=== PATIENT | female | born 1970 | race American Indian/Alaskan Native ===

== ENCOUNTER 2016-09-27 15:56 | Inpatient (IN) | payer OTHER ==
--- NOTE | 2016-09-27 16:55 | Emergency Department Report ---
Chief Complaint: Recheck/Abnormal Lab/Rx Stated Complaint: LOW POTASSIUM/CRAMPS LEGS ARMS/CHEST PAIN Time Seen by Provider: 09/27/16 16:45 - HPI History of Present Illness: Patient here reported that he thinks his potassium level was low times a few days. He complaining of vomiting since yesterday. Denies any diarrhea. Denies any fever or chills. He is complaining the muscles cramping up in arms sides and upper right breast area. Generalized pain 10 out of 10 that feels achy. Patient with history of rheumatoid arthritis, lupus, hypothyroid thyroidism and hypokalemia. - ROS Review of Systems: All systems are negative unless stated in HPI above. - Exam Vital Signs: Vital Signs 09/27/16 16:35 Temperature 98.9 F Pulse Rate 72 Respiratory 19 Rate Blood Pressure 118/59 O2 Sat by Pulse 100 Oximetry Physical Exam: General: This is a 46-year-old female well-nourished and nontoxic in appearance. CV: S1, S2. Regular rate and rhythm. Lungs: CTAB. Normal work of breathing. MSE screening note: Focused history and physical exam performed. Due to findings the following was ordered:see [facility] ED Medical Decision Making - Lab Data Result diagrams: 09/27/16 17:08 09/27/16 17:08 - Medical Decision Making Medical decision making: Patient seen by provider in triage area. Appropriate protocol activated and patient to main ED to be seen by physician. ED Disposition for MSE Condition: Stable
[2016-09-27 17:17] LABS: Basophils % (Auto) 0.3 % (0.0-1.8); Eosinophils % (Auto) 0.4 % (0.0-4.3); Hemoglobin 12.9 gm/dl (10.1-14.3); Mean Corpuscular HGB Conc 33 % (30-34); Mean Corpuscular Hemoglobin 28 pg (28-32); Mean Corpuscular Volume 85 fl (79-97); Platelet Count 438 K/mm3 (140-440); Red Blood Count 4.57 M/mm3 (3.65-5.03); Red Cell Distribution Width 17.7 % (13.2-15.2); White Blood Count 6.4 K/mm3 (4.5-11.0)
[2016-09-27 17:38] LABS: Alanine Aminotransferase 14 units/L (7-56); Albumin 4.1 g/dL (3.9-5); Albumin/Globulin Ratio 0.6 %; Alkaline Phosphatase 78 units/L (35-129); Amylase 114 units/L (27-131); Anion Gap 21 mmol/L; Bilirubin,Total 0.9 mg/dL (0.1-1.2); Blood Urea Nitrogen 17 mg/dL (7-17); Calcium 9.1 mg/dL (8.4-10.2); Carbon Dioxide 12 mmol/L (22-30); Chloride 104.6 mmol/L (98-107); Creatine Kinase 365 units/L (30-135); Glucose 89 mg/dL (65-100); Lipase 14 units/L (13-60); Sodium 136 mmol/L (137-145); Total Protein 10.8 g/dL (6.3-8.2)
[2016-09-27 17:42] LABS: Potassium 1.9 mmol/L (3.6-5.0)
[2016-09-27] MEDS ORDERED: K-DUR PO ONE (17:59)
--- NOTE | 2016-09-27 18:22 | Emergency Department Report ---
ED General Adult HPI - General Chief complaint: Recheck/Abnormal Lab/Rx Stated complaint: LOW POTASSIUM/CRAMPS LEGS ARMS/CHEST PAIN Time Seen by Provider: 09/27/16 16:54 Source: patient Mode of arrival: Ambulatory Limitations: No Limitations - History of Present Illness Initial comments: The patient has a history of lupus and distal RTA. She has chronic hypokalemia. She has been noncompliant with her potassium supplement for quite some time. She complains of muscle cramps and generalized weakness. She states that she vomited a few times since yesterday. She goes to the [facility] but has not been there in over 2 months. She has previously been hospitalized here under similar circumstances. -: week(s), month(s) Location: upper extremity, lower extremity Quality: other (cramping) Consistency: intermittent Improves with: none Worsens with: none Associated Symptoms: chest pain (a some mention of chest pain to triage apparently did not complain of this to me.), nausea/vomiting, weakness. denies : shortness of breath Treatments Prior to Arrival: none - Related Data Home Medications Medication Instructions Recorded Confirmed Last Taken Potassium Chloride [K-Dur] 60 meq PO BID 09/27/16 09/27/16 Unknown Previous Rx's Medication Instructions Recorded Last Taken Type Levothyroxine [Synthroid] 100 mcg PO QAM #30 tablet 08/02/16 Unknown Rx Sodium Bicarbonate 2,600 mg PO TID #90 tablet 08/02/16 Unknown Rx Allergies Allergy/AdvReac Type Severity Reaction Status Date / Time No Known Allergies Allergy Verified 09/27/16 16:35 ED Review of Systems ROS: Stated complaint: LOW POTASSIUM/CRAMPS LEGS ARMS/CHEST PAIN Other details as noted in HPI Constitutional: weakness. denies: chills, fever Eyes: denies: eye pain, eye discharge, vision change ENT: denies: ear pain, throat pain Respiratory: denies: cough, shortness of breath, wheezing Cardiovascular: denies: chest pain, palpitations Endocrine: no symptoms reported Gastrointestinal: denies: abdominal pain, nausea, diarrhea Genitourinary: denies: urgency, dysuria, discharge Musculoskeletal: as per HPI, myalgia. denies: back pain, joint swelling, arthralgia Skin: denies: rash, lesions Neurological: denies: headache, weakness, paresthesias Psychiatric: denies: anxiety, depression Hematological/Lymphatic: denies: easy bleeding, easy bruising ED Past Medical Hx - Past Medical History Hx Congestive Heart Failure: No Hx Diabetes: No Hx Arthritis: Yes (rheumatoid) Hx Asthma: No Hx COPD: No Additional medical history: Lupus. Surgical hypothyroidism. 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 - Surgical History Additional Surgical History: thyroidectomy - Social History Smoking Status: Never Smoker Substance Use Type: None - Medications Home Medications: Home Medications Medication Instructions Recorded Confirmed Last Taken Type Levothyroxine [Synthroid] 100 mcg PO QAM #30 tablet 08/02/16 09/27/16 Unknown Rx Sodium Bicarbonate 2,600 mg PO TID #90 tablet 08/02/16 09/27/16 Unknown Rx Potassium Chloride [K-Dur] 60 meq PO BID 09/27/16 09/27/16 Unknown History ED Physical Exam - General Limitations: No Limitations General appearance: alert, in no apparent distress - Head Head exam: Present: atraumatic, normocephalic - Eye Eye exam: Present: normal appearance, scleral icterus. Absent: PERRL, EOMI - ENT ENT exam: Present: normal exam, mucous membranes moist - Neck Neck exam: Present: normal inspection - Respiratory Respiratory exam: Present: normal lung sounds bilaterally. Absent: respiratory distress - Cardiovascular Cardiovascular Exam: Present: regular rate, normal rhythm. Absent: systolic murmur, diastolic murmur, rubs, gallop - GI/Abdominal GI/Abdominal exam: Present: soft, normal bowel sounds. Absent: distended, tenderness, guarding, rebound, rigid - Extremities Exam Extremities exam: Present: normal inspection - Back Exam Back exam: Present: normal inspection - Neurological Exam Neurological exam: Present: alert, oriented X3, CN II-XII intact. Absent: motor sensory deficit - Psychiatric Psychiatric exam: Present: normal affect, normal mood - Skin Skin exam: Present: warm, dry, intact, normal color. Absent: rash ED Course Vital Signs 09/27/16 09/27/16 09/27/16 16:35 18:31 19:12 Temperature 98.9 F Pulse Rate 72 66 Respiratory 19 18 14 Rate Blood Pressure 118/59 Blood Pressure [Right] O2 Sat by Pulse 100 99 Oximetry 09/27/16 09/27/16 09/27/16 19:38 20:00 20:31 Temperature Pulse Rate 60 76 63 Respiratory 18 16 15 Rate Blood Pressure 112/63 112/63 Blood Pressure 115/78 [Right] O2 Sat by Pulse 99 100 100 Oximetry 09/27/16 21:00 Temperature Pulse Rate 66 Respiratory 15 Rate Blood Pressure 112/62 Blood Pressure [Right] O2 Sat by Pulse 100 Oximetry - Reevaluation(s) Reevaluation #1: Even by mouth potassium, mag sulfate and K riders. Zofran. Patient was admitted to the hospitalist service for further care and evaluation and resuscitation. 09/27/16 23:46 ED Medical Decision Making - Lab Data Result diagrams: 09/27/16 17:08 09/27/16 17:08 Laboratory Results - last 24 hr 09/27/16 09/27/16 17:08 17:08 WBC 6.4 RBC 4.57 Hgb 12.9 Hct 39.0 MCV 85 MCH 28 MCHC 33 RDW 17.7 H Plt Count 438 Lymph % (Auto) 20.9 [place] % (Auto) 9.6 H Eos % (Auto) 0.4 Baso % (Auto) 0.3 Lymph # 1.3 [place] # 0.6 Eos # 0.0 Baso # 0.0 Seg Neutrophils % 68.8 Seg Neutrophils # 4.4 Potassium 1.9 L* Carbon Dioxide 12 L BUN 17 Creatinine 1.0 Estimated GFR > 60 BUN/Creatinine Ratio 17.00 Glucose 89 Calcium 9.1 Total Bilirubin 0.9 AST 25 ALT 14 Alkaline Phosphatase 78 Total Creatine Kinase 365 H Total Protein 10.8 H Albumin 4.1 Albumin/Globulin Ratio 0.6 Amylase 114 Lipase 14 Ketones 4.0 H NA 136 CL 104.6 AG 21 - EKG Data -: EKG Interpreted by Me EKG shows normal: sinus rhythm - EKG Data Interpretation: other (grossly abnormal diffuse repolarization abnormalities with T-wave inversion and U waves present consistent with hypokalemia. I would axis flattened P waves) - Radiology Data interpreted by me: Chest x-ray no acute process Critical care attestation.: If time is entered above; I have spent that time in minutes in the direct care of this critically ill patient, excluding procedure time. ED Disposition Clinical Impression: RTA (renal tubular acidosis), Hypokalemia, Metabolic acidosis Disposition: OP ADMITTED IP TO THIS HOSP Is pt being admited?: Yes Does the pt Need Aspirin: No Condition: Stable Time of Disposition: 23:48
[2016-09-27] MEDS ORDERED: MAGNESIUM SULFATE 2GM/50ML 50 ML IV ONE ×2 (18:24→21:34)
--- NOTE | 2016-09-27 18:33 | Admit Criteria Form ---
Admission Criteria Documentation: HYPONATREMIA; HYPERNATREMIA; HYPOKALEMIA; HYPERKALEMIA; HYPOCALCEMIA; HYPERCALCEMIA Clinical Indications for Inpatient Care (Place 'X' for any and all applicable criteria): Ongoing inpatient care may be indicated for ANY ONE of the following [G](1)(2)(3 )(5): [ ]I. Hyponatremia with ANY ONE of the following: [ ]a) Sodium less than 130 mEq/L (mmol/L) (new) (6)(22) [ ]b) Sodium less than 135 mEq/L (mmol/L) with ANY ONE of the following: [ ]i) Severe medical etiology requiring inpatient management (eg, heart failure, hypovolemia) [ ]ii) Altered mental status [ ]iii) Seizures [ ]II. Hypernatremia with ANY ONE of the following: [ ]a) Sodium greater than 155 mEq/L (mmol/L) [ ]b) Sodium greater than 150 mEq/L (mmol/L) with ANY ONE of the following: [ ] i) Altered mental status [ ]ii) Seizures [ ]iii) Severe medical etiology (eg, hypovolemia, diabetes insipidus) [ ]iv) Severe weakness [ ]v) Severe medical etiology (eg, hemolysis, infection, drug overdose) [X ]III. Hypokalemia with ANY ONE of the following: [ X]a) Potassium less than 2.5 mEq/L (mmol/L) despite outpatient and emergency treatment [ ]b) Potassium less than 3.0 mEq/L (mmol/L) with ANY ONE of the following: [ ]i) Weakness [ ]ii) Cardiac abnormality (eg, arrhythmia, conduction disturbance) [ ]iii) Cardiac ischemia [ ]iv) Ileus [ ]v) Ongoing medical cause requiring inpatient management. ( e.g., acute renal wasting, SIADH) [ ]vi) Other severe symptoms [ ] IV. Hyperkalemia with ANY ONE of the following: [ ]a) Potassium greater than 6.5 mEq/L (mmol/L) [ ]b) Potassium greater than 5 mEq/L (mmol/L) with ANY ONE of the following: [ ]i) Severe ECG findings [H] [ ]ii) Acute worsening of renal failure (creatinine greater than 2.5 mg/dL (221 micromoles/L) or significant elevation for age and size) [ ] V. Hypocalcemia with ANY ONE of the following: [ ]a) Calcium less than 7 mg/dL (1.75 mmol/L) despite outpatient and emergency treatment(19) [ ]b) Calcium less than 8 mg/dL (2 mmol/L) with significant symptoms or findings; examples include: [ ]i) Cardiac abnormality (eg, arrhythmia or conduction disturbance) [ ]ii) Altered mental status [ ]iii) Seizures [ ]iv) Breathing difficulty [ ]v) Muscle spasms [ ]. Hypercalcemia with ANY ONE of the following: [ ]a) Calcium greater than 14 mg/dL (3.5 mmol/L) [ ]b) Calcium greater than 12 mg/dL (3 mmol/L) with ANY ONE of the following: [ ]i) Significant dehydration or hypovolemia as indicated by ANY ONE of the following(2): [ ]1. Clinically significant dehydration as indicated by ANY ONE of the following: [ ]A. Acute loss of weight from baseline (5% of body weight in adults, 9% in pediatric patients) [ ]B. Hemodynamic instability [ ]C. Acute renal failure [ ]D. Serum sodium greater than 150 mEq/L (mmol/L) [ ]2) Dehydration that is persistent indicated by ALL of the following: [ ]A. Oral rehydration therapy not tolerated or insufficient to adequately correct dehydration [ ]B. Appropriate intravenous treatment (eg, fluids ) does not readily correct dehydration ie, after 12 to 24 hours of treatment) [ ]ii) Significant symptoms or findings; examples include: [ ]1) Altered mental status [ ]2) Cardiac abnormality (eg, arrhythmia, conduction disturbance) [ ]3) Cardiac abnormality (eg, arrhythmia, conduction disturbance) The original [facility] content created by [employer] has been revised. The portions of the content which have been revised are identified through the use of italic text or in bold, and [facility] has neither reviewed nor approved the modified material. All other unmodified content is copyright [facility] [employer] Please see references footnoted in the original [facility] edition 2016 Admission Criteria Met: Yes
[2016-09-27] MEDS ORDERED: NACL 0.9% 1000 ML 1,000 ML ONE (19:48)
[2016-09-27] MEDS ORDERED: NACL 0.9% 1000 ML IV ONE (19:59)
[2016-09-27] MEDS: KCL 10MEQ/100ML 100 ML IV SCH ×4 (20:00→23:39)
[2016-09-27] MEDS ORDERED: ZOFRAN ONE (20:11)
[2016-09-27] MEDS ORDERED: ZOFRAN IV ONE (20:32)
--- NOTE | 2016-09-27 21:20 | Event Note ---
Date: 09/27/16 See H/p in reports Severe Hypokalemia RTA Muscle cramps Hypothyroidism
[2016-09-27] MEDS ORDERED: TYLENOL PO PRN (21:28)
[2016-09-27] MEDS ORDERED: MILK OF MAGNESIA PO PRN (21:28)
[2016-09-27] MEDS ORDERED: PERCOCET 5/325 PO PRN (21:28)
[2016-09-27] MEDS ORDERED: ZOFRAN IV PRN (21:28)
[2016-09-27] MEDS ORDERED: DULCOLAX PR PRN (21:28)
[2016-09-27] MEDS ORDERED: AMBIEN PO PRN (21:28)
[2016-09-27] MEDS ORDERED: DILAUDID IV PRN (21:28)
[2016-09-27] MEDS ORDERED: K-DUR PO SCH (22:00)
[2016-09-27] MEDS ORDERED: D5W/0.45% NACL/KCL 20 MEQ 1,000 ML IV SCH (22:00)
[2016-09-27] MEDS ORDERED: KCL 10MEQ/100ML 100 ML IV SCH (22:00)
--- NOTE | 2016-09-27 22:57 | History and Physical Report ---
CHIEF COMPLAINT: Muscle spasms and low potassium. HISTORY OF PRESENT ILLNESS: A 46-year-old female with hypothyroidism and renal tubular acidosis, who comes in for muscle cramps and chest pain. The patient has been having ongoing severe muscle cramps. Also, the patient has a history of SLE. The patient thinks that she has very low potassium. Because of the muscle spasms, also has some chest discomfort present. PAST MEDICAL HISTORY: Significant for hypothyroidism, renal tubular acidosis, systematic lupus erythematosus, and rheumatoid arthritis. CURRENT MEDICATIONS: Levothyroxine, Synthroid 100 mcg p.o. daily, potassium 40 mg 3 times a day, sodium bicarbonate 2600 mg p.o. t.i.d. PAST SURGICAL HISTORY: Thyroidectomy. SOCIAL HISTORY: Does not smoke. No alcohol, no recreational drugs. FAMILY HISTORY: Noncontributory. No hypertension, diabetes. REVIEW OF SYSTEMS: Significant for severe muscle cramps and feeling weak. Also, some chest discomfort. No palpitations. No diaphoresis. 14-point review of systems otherwise negative. PHYSICAL EXAMINATION: GENERAL: Middle-aged female, curled up in the bed in pain. VITAL SIGNS: Blood pressure is 118/59, temperature is 98.9, pulse is 72, respiratory rate is 19, and sats are 100%. HEENT: Unremarkable. Pupils equal and reactive. NECK: Supple, no lymphadenopathy, no thyromegaly, no carotid artery bruit. CHEST AND LUNGS: Clear to auscultation and percussion. Good air entry. CARDIOVASCULAR: S1, S2 heard. No gallop, no murmur, no rub. Apical impulse in the left fifth intercostal space and midclavicular line. ABDOMEN: Soft and benign. No hepatosplenomegaly. No guarding, no rigidity. Hernial orifices are normal. Bowel sounds are normal. EXTREMITIES: Good pedal pulses and no pedal edema. CENTRAL NERVOUS SYSTEM: Alert and oriented x4, nonfocal exam. LABORATORY DATA: Significant for potassium of 1.9, bicarbonate of 12, BUN and creatinine 17 and 1.0. Glucose is 89. Hemoglobin is 12.9, hematocrit is 39.0. White count is 6400, platelet count is 438,000. Total CK is 365, total protein is 10.8, and albumin is 4.1. Amylase is 114, lipase is 14, ketones are 4.0. BUN and creatinine 17 and 1.0. EKG not available. ASSESSMENT AND PLAN: 1. Severe hypokalemia, of 1.9 supplement aggressively. The patient was given 2 rounds of 40 mEq IV and 40 mEq q.3 hours apart four to six doses. Also, the patient to continue potassium chloride 40 mEq three times a day and sodium bicarbonate 2600 mg 3 times a day. 2. Renal tubular acidosis. Continue potassium and sodium bicarbonate as a reconcile. Also, Nephrology consult requested. 3. Hypothyroidism, 100 mcg of levothyroxine was started. 4. Systemic lupus erythematosus by history. The patient is not on any medications. 5. Rheumatoid arthritis by history. The patient is not on any medications present. 6. Deep venous thrombosis prophylaxis, Lovenox 40 mg subcutaneous daily. 7. Check potassium and magnesium in the morning. IV magnesium also given. JOB# [id number] MILTON/TRENA PAIGE
[2016-09-28] MEDS: K-DUR PO SCH ×5 (00:23→09:06)
[2016-09-28 01:38] LABS: Bilirubin,Urine NEG (Negative); Blood,Urine NEG (Negative); Ketones,Urine NEG (Negative); Leukocyte Esterase,Urine NEG (Negative); Mucus,Urine FEW /HPF; Nitrite,Urine NEG (Negative); Urobilinogen,Urine < 2.0 mg/dL (<2.0)
[2016-09-28] MEDS: SYNTHROID PO SCH (06:13)
[2016-09-28 07:25] LABS: Basophils % (Auto) 0.5 % (0.0-1.8); Eosinophils % (Auto) 1.9 % (0.0-4.3); Hemoglobin 10.2 gm/dl (10.1-14.3); Mean Corpuscular HGB Conc 33 % (30-34); Mean Corpuscular Hemoglobin 28 pg (28-32); Mean Corpuscular Volume 86 fl (79-97); Platelet Count 369 K/mm3 (140-440); Red Blood Count 3.65 M/mm3 (3.65-5.03); Red Cell Distribution Width 18.6 % (13.2-15.2); White Blood Count 4.9 K/mm3 (4.5-11.0)
[2016-09-28 07:29] LABS: Hematocrit 33.3 % (30.3-42.9)
[2016-09-28 07:42] LABS: Anion Gap 18 mmol/L; BUN/Creatinine Ratio 15.55; Blood Urea Nitrogen 14 mg/dL (7-17); Calcium 7.6 mg/dL (8.4-10.2); Carbon Dioxide 11 mmol/L (22-30); Chloride 108.2 mmol/L (98-107); Glucose 76 mg/dL (65-100); Sodium 135 mmol/L (137-145)
[2016-09-28 07:43] LABS: Potassium 2.2 mmol/L (3.6-5.0)
--- NOTE | 2016-09-28 08:33 | XRay Report ---
PORTABLE CHEST: INDICATION: Hypertension. COMPARISON: 06/27/2015 FINDINGS: Portable, frontal chest radiograph again demonstrates normal cardiomediastinal silhouette. Well-expanded lungs without pleural effusions or CHF, though slight scalloping of the hemidiaphragms now noted. Stable bones. CONCLUSION: No acute disease in the chest. Thank you for the opportunity to participate in this patient's care.
[2016-09-28] MEDS: SODIUM BICARBONATE PO SCH ×3 (09:06→21:29)
[2016-09-28] MEDS: LOVENOX SUB-Q SCH (09:09)
[2016-09-28] MEDS ORDERED: K-DUR PO SCH (10:00)
--- NOTE | 2016-09-28 10:51 | Consultation ---
History of Present Illness - Reason for Consult Consult date: 09/28/16 hypokalemia, metabolic acidosis - History of Present Illness Patient is a 46 yo AAF with history significant for Lupus, RTA and chronic hypokalemia came to ER with muscle cramps and generalized weakness. She has been noncompliant with her potassium supplement for quite some time. She reports vomiting since yesterday. She goes to the [facility] but has not been there in over 2 months. She has had previous similar admisions in the past. Her admission K level was 1.9, which has improved to 3. Patient denies any diarrhea, dizziness, cp, syncope or fever. Past History Past Medical History: hypothyroidism, other (Lupus, RTA, Hypokalemia) Medications and Allergies Allergies Allergy/AdvReac Type Severity Reaction Status Date / Time No Known Allergies Allergy Verified 09/27/16 16:35 Home Medications Medication Instructions Recorded Confirmed Last Taken Type Levothyroxine [Synthroid] 100 mcg PO QAM #30 tablet 08/02/16 09/27/16 Unknown Rx Sodium Bicarbonate 2,600 mg PO TID #90 tablet 08/02/16 09/27/16 Unknown Rx Potassium Chloride [K-Dur] 60 meq PO BID 09/27/16 09/27/16 Unknown History Active Meds: Active Medications Acetaminophen (Tylenol) 650 mg PO Q4H PRN PRN Reason: Pain MILD(1-3)/Fever >100.5/POWERS Bisacodyl (Dulcolax) 10 mg AR QDAY PRN PRN Reason: Constipation unrelieved by MOM Enoxaparin Sodium (Lovenox) 40 mg SUB-Q QDAY LION Hydromorphone HCl (Dilaudid) 0.5 mg IV Q3H PRN PRN Reason: Pain , Severe (7-10) Potassium Chloride/Dextrose/Sod Cl (D5w/0.45% Nacl/Kcl 20 Meq) 1,000 mls @ 100 mls/hr IV DIRECT LION Last Admin: 09/28/16 01:46 Dose: 100 mls/hr Sodium Chloride (Nacl 0.9% 1000 Ml) 1,000 mls @ 75 mls/hr IV DIRECT LION Influenza Virus Vaccine Quadrival (Fluarix Quad [id number](36 Mos+)) 60 mcg IM .ONCE ONE Stop: 09/28/16 12:01 Levothyroxine Sodium (Synthroid) 100 mcg PO DAILY@0600 [facility] Last Admin: 09/28/16 06:13 Dose: 100 mcg Magnesium Hydroxide (Milk Of Magnesia) 30 ml PO Q4H PRN PRN Reason: Constipation Ondansetron HCl (Zofran) 4 mg IV Q8H PRN PRN Reason: N/V unrelieved by Reglan Oxycodone/Acetaminophen (Percocet 5/325) 1 tab PO Q6H PRN PRN Reason: Pain, Moderate (4-6) Potassium Chloride (K-Dur) 60 meq PO BID [facility] Sodium Bicarbonate (Sodium Bicarbonate) 2,600 mg PO TID [facility] Zolpidem Tartrate (Ambien) 5 mg PO QHS PRN PRN Reason: Insomnia Review of Systems Constitutional: fatigue, weakness, malaise, poor appetite, no fever, no chills Ears, nose, mouth and throat: no epistaxis Breasts: deferred Cardiovascular: no chest pain, no orthopnea, no palpitations, no rapid/ irregular heart beat, no edema, no syncope Respiratory: no cough, no hemoptysis Gastrointestinal: nausea, vomiting, no abdominal pain, no diarrhea, no BRBPR, no melena Genitourinary Female: no hematuria Rectal: no bleeding Musculoskeletal: no neck stiffness Integumentary: no jaundice Neurological: weakness, no paralysis Hematologic/Lymphatic: no easy bruising, no easy bleeding Allergic/Immunologic: no urticaria Exam - Vital Signs Vital signs: Vital Signs Temp Pulse Resp BP Pulse Ox 98.9 F 72 19 118/59 100 09/27/16 16:35 09/27/16 16:35 09/27/16 16:35 09/27/16 16:35 09/27/16 16:35 - General Appearance General appearance: well-developed, other (no distress) EENT: mucous membranes moist, hearing intact, vision intact Neck: Present: neck supple, trachea midline Respiratory: Clear to Ascultation Heart: regular, S1S2, no murmurs Gastrointestinal: Present: normoactive bowel sounds. Absent: tenderness, distended Integumentary: no rash, warm and dry Neurologic: no focal deficit, alert and oriented x3, CN 3-12 intact Musculoskeletal: Present: other (no edema) Psychiatric: mood/affect appropriate, cooperative Results - Lab Results 09/28/16 05:59 01/06/17 14:51 Most recent lab results Calcium 7.6 mg/dL (8.4-10.2) L D 09/28/16 05:59 Magnesium 2.5 mg/dL (1.7-2.3) H 09/27/16 17:08 Assessment and Plan - Patient Problems (1) Hypokalemia Current Visit: Yes Status: Acute Plan to address problem: Potassium level is improving with treatment. Potassium bicarbonate added. Monitor K level. (2) RTA (renal tubular acidosis) Current Visit: Yes Status: Acute Plan to address problem: Continue bicarbonate supplement. Compliance encouraged. (3) Volume depletion Current Visit: Yes Status: Acute Plan to address problem: IV fluids.
[2016-09-28] MEDS ORDERED: FLUARIX QUAD 2016-2017(36 MOS+) IM ONE (12:00)
[2016-09-28 15:54] LABS: Anion Gap 18 mmol/L; BUN/Creatinine Ratio 17.77; Blood Urea Nitrogen 16 mg/dL (7-17); Calcium 7.9 mg/dL (8.4-10.2); Carbon Dioxide 13 mmol/L (22-30); Chloride 108.3 mmol/L (98-107); Glucose 74 mg/dL (65-100); Sodium 136 mmol/L (137-145)
--- NOTE | 2016-09-28 16:16 | Progress Note ---
Assessment and Plan Assessment and plan: 1. Moderate to severe hypokalemia secondary to renal tubular acidosis-will replace with oral potassium supplementation, follow up with nephrology for further recommendations. We'll recheck level in the morning 2. SLE/rheumatoid arthritis-stable. 3. DVT prophylaxis Lovenox History Interval history: f/u hypokalemia; , renal tubular acidosis Patient seen on the bedside. She has no complaints today Hospitalist Physical - Constitutional Vitals: Temp Pulse Resp BP Pulse Ox 97.4 F L 63 20 99/55 100 09/28/16 12:00 09/28/16 12:00 09/28/16 08:00 09/28/16 12:00 09/28/16 12:00 General appearance: Present: no acute distress, well-nourished - EENT Eyes: Present: PERRL, EOM intact. Absent: scleral icterus, conjunctival injection ENT: hearing intact, clear oral mucosa, no oropharyngeal erythema, no poor dentition - Neck Neck: Present: supple, normal ROM. Absent: enlarged thyroid, masses or JVD - Respiratory Respiratory effort: normal Respiratory: negative: diminished, rales, rhonchi, wheezing - Cardiovascular Rhythm: regular Heart Sounds: Present: S1 & S2. Absent: gallop - Extremities Extremities: no ischemia, pulses intact, pulses symmetrical Peripheral Pulses: within normal limits - Abdominal General gastrointestinal: soft, non-tender, non-distended - Integumentary Integumentary: Present: clear - Psychiatric Psychiatric: appropriate mood/affect, intact judgment & insight - Neurologic Neurologic: CNII-XII intact, moves all extremities Results - Labs CBC & Chem 7: 09/28/16 05:59 09/28/16 14:51 Labs: Laboratory Last Values WBC 4.9 K/mm3 (4.5-11.0) 09/28/16 05:59 RBC 3.65 M/mm3 (3.65-5.03) 09/28/16 05:59 Hgb 10.2 gm/dl (10.1-14.3) 09/28/16 05:59 Hct 33.3 % (30.3-42.9) 09/28/16 05:59 MCV 86 fl (79-97) 09/28/16 05:59 MCH 28 pg (28-32) 09/28/16 05:59 MCHC 33 % (30-34) 09/28/16 05:59 RDW 18.6 % (13.2-15.2) H 09/28/16 05:59 Plt Count 369 K/mm3 (140-440) 09/28/16 05:59 Lymph % (Auto) 31.0 % (13.4-35.0) 09/28/16 05:59 [place] % (Auto) 14.4 % (0.0-7.3) H 09/28/16 05:59 Eos % (Auto) 1.9 % (0.0-4.3) 09/28/16 05:59 Baso % (Auto) 0.5 % (0.0-1.8) 09/28/16 05:59 Lymph # 1.5 K/mm3 (1.2-5.4) 09/28/16 05:59 [place] # 0.7 K/mm3 (0.0-0.8) 09/28/16 05:59 Eos # 0.1 K/mm3 (0.0-0.4) 09/28/16 05:59 Baso # 0.0 K/mm3 (0.0-0.1) 09/28/16 05:59 Seg Neutrophils % 52.2 % (40.0-70.0) 09/28/16 05:59 Seg Neutrophils # 2.5 K/mm3 (1.8-7.7) 09/28/16 05:59 Sodium 136 mmol/L (137-145) L 09/28/16 14:51 Potassium 3.0 mmol/L (3.6-5.0) L D 09/28/16 14:51 Chloride 108.3 mmol/L (98-107) H 09/28/16 14:51 Carbon Dioxide 13 mmol/L (22-30) L 09/28/16 14:51 Anion Gap 18 mmol/L 09/28/16 14:51 BUN 16 mg/dL (7-17) 09/28/16 14:51 Creatinine 0.9 mg/dL (0.7-1.2) 09/28/16 14:51 Estimated GFR > 60 ml/min 09/28/16 14:51 BUN/Creatinine Ratio 17.77 % 09/28/16 14:51 Glucose 74 mg/dL (65-100) 09/28/16 14:51 Calcium 7.9 mg/dL (8.4-10.2) L 09/28/16 14:51 Magnesium 2.5 mg/dL (1.7-2.3) H 09/27/16 17:08 Total Bilirubin 0.9 mg/dL (0.1-1.2) 09/27/16 17:08 AST 25 units/L (5-40) 09/27/16 17:08 ALT 14 units/L (7-56) 09/27/16 17:08 Alkaline Phosphatase 78 units/L (35-129) 09/27/16 17:08 Total Creatine Kinase 365 units/L (30-135) H 09/27/16 17:08 Total Protein 10.8 g/dL (6.3-8.2) H 09/27/16 17:08 Albumin 4.1 g/dL (3.9-5) 09/27/16 17:08 Albumin/Globulin Ratio 0.6 % 09/27/16 17:08 Amylase 114 units/L (27-131) 09/27/16 17:08 Lipase 14 units/L (13-60) 09/27/16 17:08 Urine Color Straw (Yellow) 09/28/16 00:13 Urine Turbidity Clear (Clear) 09/28/16 00:13 Urine pH 7.0 (5.0-7.0) 09/28/16 00:13 Ur Specific [place] 1.009 (1.003-1.030) 09/28/16 00:13 Urine Protein 30 mg/dl mg/dL (Negative) 09/28/16 00:13 Urine Glucose (UA) Neg mg/dL (Negative) 09/28/16 00:13 Urine Ketones Neg mg/dL (Negative) 09/28/16 00:13 Urine Blood Neg (Negative) 09/28/16 00:13 Urine Nitrite Neg (Negative) 09/28/16 00:13 Urine Bilirubin Neg (Negative) 09/28/16 00:13 Urine Urobilinogen < 2.0 mg/dL (<2.0) 09/28/16 00:13 Ur Leukocyte Esterase Neg (Negative) 09/28/16 00:13 Urine WBC (Auto) 1.0 /HPF (0.0-6.0) 09/28/16 00:13 Urine RBC (Auto) 1.0 /HPF (0.0-6.0) 09/28/16 00:13 U Epithel Cells (Auto) 2.0 /HPF (0-13.0) 09/28/16 00:13 Amorphous Crystals Few 09/28/16 00:13 Urine Mucus Few /HPF 09/28/16 00:13 Ketones 4.0 mg/dL (0.2-2.8) H 09/27/16 17:08
[2016-09-28] MEDS ORDERED: KLOR-CON PO SCH (18:00)
[2016-09-28] MEDS: NACL 0.9% 1000 ML 1,000 ML IV SCH (22:50)
[2016-09-29] MEDS: SYNTHROID PO SCH (06:24)
[2016-09-29] MEDS: SODIUM BICARBONATE PO SCH ×3 (08:01→22:23)
[2016-09-29 09:10] LABS: BUN/Creatinine Ratio 11.25; Blood Urea Nitrogen 9 mg/dL (7-17); Calcium 7.6 mg/dL (8.4-10.2); Carbon Dioxide 12 mmol/L (22-30); Chloride 110.2 mmol/L (98-107); Creatine Kinase 280 units/L (30-135); Glucose 78 mg/dL (65-100); Phosphorous 1.9 mg/dL (2.5-4.5); Sodium 135 mmol/L (137-145)
[2016-09-29 09:16] LABS: Anion Gap 15 mmol/L
[2016-09-29 09:26] LABS: Potassium 2.6 mmol/L (3.6-5.0)
[2016-09-29] MEDS ORDERED: KPHOS 30 MMOL in NACL 0.9% 500 ML 500 ML IV ONE (09:43)
--- NOTE | 2016-09-29 09:44 | Progress Note ---
Assessment and Plan - Patient Problems (1) Hypokalemia Current Visit: Yes Status: Acute Plan to address problem: Potassium level dropped since yesterday. Potassium bicarbonate added. One dose of IV K-phos. (2) RTA (renal tubular acidosis) Current Visit: Yes Status: Acute Plan to address problem: Continue bicarbonate supplement. Compliance encouraged. (3) Volume depletion Current Visit: Yes Status: Acute Plan to address problem: IV fluids. Subjective Date of service: 09/29/16 Interval history: Patient is feeling ok. Objective - Vital Signs Vital signs: Vital Signs - 12hr 09/29/16 09/29/16 09/29/16 00:21 05:26 08:19 Temperature 97.6 F 97.6 F 97.6 F Pulse Rate [ 71 68 Apical] Pulse Rate [ 73 Left] Respiratory 18 18 18 Rate Blood Pressure 115/53 100/68 107/51 [Left Arm] O2 Sat by Pulse 100 100 100 Oximetry - General Appearance General appearance: well-developed, other (no distress) EENT: PERRL, mucous membranes moist, hearing intact, vision intact Neck: no JVD, no carotid bruit, supple Respiratory: Present: Clear to Ascultation Cardiology: regular, S1S2, no murmurs Gastrointestinal: normoactive bowel sounds, no tenderness, no distended, no guarding Integumentary: no rash, warm and dry Neurologic: no focal deficit, no asterixis, alert and oriented x3, CN 3-12 intact Musculoskeletal: other (no edema) Psychiatric: mood/affect appropriate, cooperative - Lab 09/28/16 05:59 09/29/16 08:06 Most recent lab results Calcium 7.6 mg/dL (8.4-10.2) L 09/29/16 08:06 Phosphorus 1.9 mg/dL (2.5-4.5) L 09/29/16 08:06 Magnesium 2.0 mg/dL (1.7-2.3) 09/29/16 08:06
[2016-09-29] MEDS: KLOR-CON PO SCH ×2 (11:14→22:23)
[2016-09-29] MEDS: LOVENOX SUB-Q SCH (11:14)
--- NOTE | 2016-09-29 13:36 | Progress Note ---
Assessment and Plan Assessment and plan: 1. Moderate to severe hypokalemia secondary to renal tubular acidosis-will cont with oral potassium supplementation and agree with giving a dose of IV supplementation as per renal, follow up with nephrology for further recommendations. We'll recheck level in the morning 2. SLE/rheumatoid arthritis-stable. 3. DVT prophylaxis Lovenox History Interval history: f/u hypokalemia; , renal tubular acidosis Patient seen on the bedside. She has no complaints today Hospitalist Physical - Constitutional Vitals: Temp Pulse Resp BP Pulse Ox 97.6 F 77 18 107/51 100 09/29/16 08:19 09/29/16 11:32 09/29/16 08:19 09/29/16 08:19 09/29/16 08:19 General appearance: Present: no acute distress, well-nourished - EENT Eyes: Present: PERRL, EOM intact. Absent: scleral icterus, conjunctival injection ENT: hearing intact, clear oral mucosa, no oropharyngeal erythema, no poor dentition - Neck Neck: Present: supple, normal ROM. Absent: enlarged thyroid, masses or JVD - Respiratory Respiratory effort: normal Respiratory: negative: diminished, rales, rhonchi, wheezing - Cardiovascular Rhythm: regular Heart Sounds: Present: S1 & S2. Absent: gallop - Extremities Extremities: no ischemia, pulses intact, pulses symmetrical, No edema, normal temperature Peripheral Pulses: within normal limits - Abdominal General gastrointestinal: soft, non-tender, non-distended - Integumentary Integumentary: Present: clear - Psychiatric Psychiatric: appropriate mood/affect, intact judgment & insight - Neurologic Neurologic: CNII-XII intact, moves all extremities Results - Labs CBC & Chem 7: 09/28/16 05:59 09/29/16 08:06 Labs: Laboratory Last Values WBC 4.9 K/mm3 (4.5-11.0) 09/28/16 05:59 RBC 3.65 M/mm3 (3.65-5.03) 09/28/16 05:59 Hgb 10.2 gm/dl (10.1-14.3) 09/28/16 05:59 Hct 33.3 % (30.3-42.9) 09/28/16 05:59 MCV 86 fl (79-97) 09/28/16 05:59 MCH 28 pg (28-32) 09/28/16 05:59 MCHC 33 % (30-34) 09/28/16 05:59 RDW 18.6 % (13.2-15.2) H 09/28/16 05:59 Plt Count 369 K/mm3 (140-440) 09/28/16 05:59 Lymph % (Auto) 31.0 % (13.4-35.0) 09/28/16 05:59 [place] % (Auto) 14.4 % (0.0-7.3) H 09/28/16 05:59 Eos % (Auto) 1.9 % (0.0-4.3) 09/28/16 05:59 Baso % (Auto) 0.5 % (0.0-1.8) 09/28/16 05:59 Lymph # 1.5 K/mm3 (1.2-5.4) 09/28/16 05:59 [place] # 0.7 K/mm3 (0.0-0.8) 09/28/16 05:59 Eos # 0.1 K/mm3 (0.0-0.4) 09/28/16 05:59 Baso # 0.0 K/mm3 (0.0-0.1) 09/28/16 05:59 Seg Neutrophils % 52.2 % (40.0-70.0) 09/28/16 05:59 Seg Neutrophils # 2.5 K/mm3 (1.8-7.7) 09/28/16 05:59 Sodium 135 mmol/L (137-145) L 09/29/16 08:06 Potassium 2.6 mmol/L (3.6-5.0) L* 09/29/16 08:06 Chloride 110.2 mmol/L (98-107) H 09/29/16 08:06 Carbon Dioxide 12 mmol/L (22-30) L 09/29/16 08:06 Anion Gap 15 mmol/L 09/29/16 08:06 BUN 9 mg/dL (7-17) 09/29/16 08:06 Creatinine 0.8 mg/dL (0.7-1.2) 09/29/16 08:06 Estimated GFR > 60 ml/min 09/29/16 08:06 BUN/Creatinine Ratio 11.25 % 09/29/16 08:06 Glucose 78 mg/dL (65-100) 09/29/16 08:06 Calcium 7.6 mg/dL (8.4-10.2) L 09/29/16 08:06 Phosphorus 1.9 mg/dL (2.5-4.5) L 09/29/16 08:06 Magnesium 2.0 mg/dL (1.7-2.3) 09/29/16 08:06 Total Bilirubin 0.9 mg/dL (0.1-1.2) 09/27/16 17:08 AST 25 units/L (5-40) 09/27/16 17:08 ALT 14 units/L (7-56) 09/27/16 17:08 Alkaline Phosphatase 78 units/L (35-129) 09/27/16 17:08 Total Creatine Kinase 280 units/L (30-135) H 09/29/16 08:06 Total Protein 10.8 g/dL (6.3-8.2) H 09/27/16 17:08 Albumin 4.1 g/dL (3.9-5) 09/27/16 17:08 Albumin/Globulin Ratio 0.6 % 09/27/16 17:08 Amylase 114 units/L (27-131) 09/27/16 17:08 Lipase 14 units/L (13-60) 09/27/16 17:08 Urine Color Straw (Yellow) 09/28/16 00:13 Urine Turbidity Clear (Clear) 09/28/16 00:13 Urine pH 7.0 (5.0-7.0) 09/28/16 00:13 Ur Specific [place] 1.009 (1.003-1.030) 09/28/16 00:13 Urine Protein 30 mg/dl mg/dL (Negative) 09/28/16 00:13 Urine Glucose (UA) Neg mg/dL (Negative) 09/28/16 00:13 Urine Ketones Neg mg/dL (Negative) 09/28/16 00:13 Urine Blood Neg (Negative) 09/28/16 00:13 Urine Nitrite Neg (Negative) 09/28/16 00:13 Urine Bilirubin Neg (Negative) 09/28/16 00:13 Urine Urobilinogen < 2.0 mg/dL (<2.0) 09/28/16 00:13 Ur Leukocyte Esterase Neg (Negative) 09/28/16 00:13 Urine WBC (Auto) 1.0 /HPF (0.0-6.0) 09/28/16 00:13 Urine RBC (Auto) 1.0 /HPF (0.0-6.0) 09/28/16 00:13 U Epithel Cells (Auto) 2.0 /HPF (0-13.0) 09/28/16 00:13 Amorphous Crystals Few 09/28/16 00:13 Urine Mucus Few /HPF 09/28/16 00:13 Ketones 4.0 mg/dL (0.2-2.8) H 09/27/16 17:08
[2016-09-30] MEDS: SYNTHROID PO SCH (05:46)
[2016-09-30 06:18] LABS: Anion Gap 17 mmol/L; BUN/Creatinine Ratio 11.25; Blood Urea Nitrogen 9 mg/dL (7-17); Calcium 7.1 mg/dL (8.4-10.2); Carbon Dioxide 16 mmol/L (22-30); Chloride 110.9 mmol/L (98-107); Glucose 88 mg/dL (65-100); Magnesium 1.8 mg/dL (1.7-2.3); Phosphorous 2.8 mg/dL (2.5-4.5); Sodium 141 mmol/L (137-145)
[2016-09-30 06:25] LABS: Potassium 2.8 mmol/L (3.6-5.0)
--- NOTE | 2016-09-30 08:58 | Progress Note ---
Assessment and Plan - Patient Problems (1) Hypokalemia Current Visit: Yes Status: Acute Plan to address problem: Potassium level is low today. Additional K supplement ordered. Continue Potassium bicarbonate. Monitor K level. (2) RTA (renal tubular acidosis) Current Visit: Yes Status: Acute Plan to address problem: Continue bicarbonate supplement. Compliance encouraged. (3) Volume depletion Current Visit: Yes Status: Acute Plan to address problem: IV fluids. Subjective Date of service: 09/30/16 Interval history: Patient is doing ok. Objective - Vital Signs Vital signs: Vital Signs - 12hr 09/29/16 09/30/16 09/30/16 23:32 00:00 04:00 Temperature 98.3 F 98.0 F Pulse Rate 79 Pulse Rate [ 78 67 Right Radial] Respiratory 18 18 Rate Blood Pressure 87/53 95/52 [Left Arm] Blood Pressure [Right Arm] O2 Sat by Pulse 99 98 Oximetry 09/30/16 08:09 Temperature 98.4 F Pulse Rate Pulse Rate [ 66 Right Radial] Respiratory 18 Rate Blood Pressure [Left Arm] Blood Pressure 100/46 [Right Arm] O2 Sat by Pulse 100 Oximetry - General Appearance General appearance: well-developed, well-nourished, other (no distress) EENT: PERRL, mucous membranes moist, hearing intact, vision intact Neck: no carotid bruit, supple Respiratory: Present: Clear to Ascultation Cardiology: regular, S1S2, no murmurs Gastrointestinal: normoactive bowel sounds, no tenderness, no distended, no guarding Integumentary: no rash, warm and dry Neurologic: no focal deficit, alert and oriented x3, CN 3-12 intact Musculoskeletal: other (no edema) Psychiatric: mood/affect appropriate, cooperative - Lab 09/28/16 05:59 09/30/16 14:47 Most recent lab results Calcium 7.1 mg/dL (8.4-10.2) L 09/30/16 05:28 Phosphorus 2.8 mg/dL (2.5-4.5) D 09/30/16 05:28 Magnesium 1.8 mg/dL (1.7-2.3) 09/30/16 05:28
[2016-09-30] MEDS ORDERED: ALDACTONE PO SCH (10:00)
[2016-09-30] MEDS: KLOR-CON PO SCH ×2 (11:04→21:05)
[2016-09-30] MEDS: SODIUM BICARBONATE PO SCH ×3 (11:05→21:05)
[2016-09-30] MEDS: K-DUR PO SCH ×2 (11:05→12:40)
[2016-09-30] MEDS: LOVENOX SUB-Q SCH (11:06)
--- NOTE | 2016-09-30 13:30 | Progress Note ---
Assessment and Plan Assessment and plan: 1. Moderate to severe hypokalemia secondary to renal tubular acidosis-will cont with oral potassium supplementation; d/wed with renal - patient can be discharged with repeat potassium is > 3; will check at 3 pm 2. SLE/rheumatoid arthritis-stable. 3. DVT prophylaxis Lovenox For d/c if Potassium >3; f/u at [facility] in 2 days if discharged today History Interval history: f/u hypokalemia; , renal tubular acidosis Patient seen on the bedside. She has no complaints today Hospitalist Physical - Constitutional Vitals: Temp Pulse Resp BP Pulse Ox 98.3 F 68 18 92/52 100 09/30/16 12:11 09/30/16 12:11 09/30/16 12:11 09/30/16 12:11 09/30/16 12:11 General appearance: Present: no acute distress, well-nourished - EENT Eyes: Present: PERRL, EOM intact. Absent: scleral icterus, conjunctival injection ENT: hearing intact, clear oral mucosa, no oropharyngeal erythema, no poor dentition - Neck Neck: Present: supple, normal ROM. Absent: enlarged thyroid, masses or JVD - Respiratory Respiratory effort: normal Respiratory: negative: diminished, rales, rhonchi, wheezing - Cardiovascular Rhythm: regular Heart Sounds: Present: S1 & S2. Absent: gallop - Extremities Extremities: no ischemia, pulses intact, pulses symmetrical, No edema Peripheral Pulses: within normal limits - Abdominal General gastrointestinal: soft, non-tender, non-distended, normal bowel sounds - Integumentary Integumentary: Present: clear - Psychiatric Psychiatric: appropriate mood/affect, intact judgment & insight, cooperative - Neurologic Neurologic: CNII-XII intact, moves all extremities Results - Labs CBC & Chem 7: 09/28/16 05:59 09/30/16 05:28 Labs: Laboratory Last Values WBC 4.9 K/mm3 (4.5-11.0) 09/28/16 05:59 RBC 3.65 M/mm3 (3.65-5.03) 09/28/16 05:59 Hgb 10.2 gm/dl (10.1-14.3) 09/28/16 05:59 Hct 33.3 % (30.3-42.9) 09/28/16 05:59 MCV 86 fl (79-97) 09/28/16 05:59 MCH 28 pg (28-32) 09/28/16 05:59 MCHC 33 % (30-34) 09/28/16 05:59 RDW 18.6 % (13.2-15.2) H 09/28/16 05:59 Plt Count 369 K/mm3 (140-440) 09/28/16 05:59 Lymph % (Auto) 31.0 % (13.4-35.0) 09/28/16 05:59 [place] % (Auto) 14.4 % (0.0-7.3) H 09/28/16 05:59 Eos % (Auto) 1.9 % (0.0-4.3) 09/28/16 05:59 Baso % (Auto) 0.5 % (0.0-1.8) 09/28/16 05:59 Lymph # 1.5 K/mm3 (1.2-5.4) 09/28/16 05:59 [place] # 0.7 K/mm3 (0.0-0.8) 09/28/16 05:59 Eos # 0.1 K/mm3 (0.0-0.4) 09/28/16 05:59 Baso # 0.0 K/mm3 (0.0-0.1) 09/28/16 05:59 Seg Neutrophils % 52.2 % (40.0-70.0) 09/28/16 05:59 Seg Neutrophils # 2.5 K/mm3 (1.8-7.7) 09/28/16 05:59 Sodium 141 mmol/L (137-145) 09/30/16 05:28 Potassium 2.8 mmol/L (3.6-5.0) L* 09/30/16 05:28 Chloride 110.9 mmol/L (98-107) H 09/30/16 05:28 Carbon Dioxide 16 mmol/L (22-30) L 09/30/16 05:28 Anion Gap 17 mmol/L 09/30/16 05:28 BUN 9 mg/dL (7-17) 09/30/16 05:28 Creatinine 0.8 mg/dL (0.7-1.2) 09/30/16 05:28 Estimated GFR > 60 ml/min 09/30/16 05:28 BUN/Creatinine Ratio 11.25 % 09/30/16 05:28 Glucose 88 mg/dL (65-100) 09/30/16 05:28 Calcium 7.1 mg/dL (8.4-10.2) L 09/30/16 05:28 Phosphorus 2.8 mg/dL (2.5-4.5) D 09/30/16 05:28 Magnesium 1.8 mg/dL (1.7-2.3) 09/30/16 05:28 Total Bilirubin 0.9 mg/dL (0.1-1.2) 09/27/16 17:08 AST 25 units/L (5-40) 09/27/16 17:08 ALT 14 units/L (7-56) 09/27/16 17:08 Alkaline Phosphatase 78 units/L (35-129) 09/27/16 17:08 Total Creatine Kinase 280 units/L (30-135) H 09/29/16 08:06 Total Protein 10.8 g/dL (6.3-8.2) H 09/27/16 17:08 Albumin 4.1 g/dL (3.9-5) 09/27/16 17:08 Albumin/Globulin Ratio 0.6 % 09/27/16 17:08 Amylase 114 units/L (27-131) 09/27/16 17:08 Lipase 14 units/L (13-60) 09/27/16 17:08 Urine Color Straw (Yellow) 09/28/16 00:13 Urine Turbidity Clear (Clear) 09/28/16 00:13 Urine pH 7.0 (5.0-7.0) 09/28/16 00:13 Ur Specific [place] 1.009 (1.003-1.030) 09/28/16 00:13 Urine Protein 30 mg/dl mg/dL (Negative) 09/28/16 00:13 Urine Glucose (UA) Neg mg/dL (Negative) 09/28/16 00:13 Urine Ketones Neg mg/dL (Negative) 09/28/16 00:13 Urine Blood Neg (Negative) 09/28/16 00:13 Urine Nitrite Neg (Negative) 09/28/16 00:13 Urine Bilirubin Neg (Negative) 09/28/16 00:13 Urine Urobilinogen < 2.0 mg/dL (<2.0) 09/28/16 00:13 Ur Leukocyte Esterase Neg (Negative) 09/28/16 00:13 Urine WBC (Auto) 1.0 /HPF (0.0-6.0) 09/28/16 00:13 Urine RBC (Auto) 1.0 /HPF (0.0-6.0) 09/28/16 00:13 U Epithel Cells (Auto) 2.0 /HPF (0-13.0) 09/28/16 00:13 Amorphous Crystals Few 09/28/16 00:13 Urine Mucus Few /HPF 09/28/16 00:13 Ketones 4.0 mg/dL (0.2-2.8) H 09/27/16 17:08
--- NOTE | 2016-09-30 13:32 | Discharge Summary ---
Providers - Providers Date of Admission: 09/27/16 21:28 Attending physician: YOSVANY CARRION Primary care physician: [facility] [employer] Hospitalization Condition: Stable Disposition: STILL A PATIENT Exam - Constitutional Vitals: Temp Pulse Resp BP Pulse Ox 98.3 F 68 18 92/52 100 09/30/16 12:11 09/30/16 12:11 09/30/16 12:11 09/30/16 12:11 09/30/16 12:11 Plan Activity: no restrictions Diet: regular, other (potassium rich foods such as ripe bananas; sodium bicarbonate ) Additional Instructions: f/u [facility] Follow up with: PRIMARY CARE, [Primary Care Provider] - 7 Days Prescriptions: Potassium Chloride 60 meq PO BID 30 Days Sodium Bicarbonate 2,600 mg PO TID 30 Days
[2016-09-30] MEDS: NACL 0.9% 1000 ML 1,000 ML IV SCH (21:04)
[2016-10-01] MEDS: SYNTHROID PO SCH (05:27)
[2016-10-01 07:08] LABS: BUN/Creatinine Ratio 8.33; Blood Urea Nitrogen 5 mg/dL (7-17); Calcium 7.3 mg/dL (8.4-10.2); Carbon Dioxide 16 mmol/L (22-30); Glucose 86 mg/dL (65-100); Sodium 138 mmol/L (137-145)
[2016-10-01 07:31] LABS: Anion Gap 14 mmol/L
[2016-10-01 07:32] LABS: Potassium 2.8 mmol/L (3.6-5.0)
--- NOTE | 2016-10-01 09:19 | Progress Note ---
Assessment and Plan - Patient Problems (1) Hypokalemia Current Visit: Yes Status: Acute Plan to address problem: Hypokalemia in the setting of RTA. Continue Potassium supplement. Additional K supplement ordered. Monitor K level. (2) RTA (renal tubular acidosis) Current Visit: Yes Status: Acute Plan to address problem: Continue bicarbonate supplement. Compliance encouraged. (3) Volume depletion Current Visit: Yes Status: Acute Plan to address problem: IV fluids. Subjective Date of service: 10/01/16 Interval history: Patient is feeling better. Objective - Vital Signs Vital signs: Vital Signs - 12hr 10/01/16 10/01/16 10/01/16 00:00 04:00 07:35 Temperature 97.7 F 97.9 F 97.4 F L Pulse Rate [ 65 Apical] Pulse Rate [ 69 64 Right Radial] Respiratory 18 18 20 Rate Blood Pressure 82/48 86/49 89/54 [Right Arm] O2 Sat by Pulse 97 99 100 Oximetry - General Appearance General appearance: well-developed, appears stated age, other (no distress) EENT: PERRL, mucous membranes moist, hearing intact, vision intact Respiratory: Present: Clear to Ascultation. Absent: Rales, Ronchi, Wheezes Cardiology: regular, S1S2 Gastrointestinal: normoactive bowel sounds, no tenderness, no distended, no guarding Integumentary: no rash Neurologic: no focal deficit, no asterixis, alert and oriented x3 Musculoskeletal: other (no edema) Psychiatric: mood/affect appropriate, cooperative - Lab 09/28/16 05:59 10/01/16 06:37 Most recent lab results Calcium 7.3 mg/dL (8.4-10.2) L 10/01/16 06:37 Phosphorus 2.8 mg/dL (2.5-4.5) D 09/30/16 05:28 Magnesium 2.0 mg/dL (1.7-2.3) 10/01/16 06:37
[2016-10-01] MEDS: LOVENOX SUB-Q SCH (11:05)
[2016-10-01] MEDS: K-DUR PO SCH ×3 (11:06→14:59)
[2016-10-01] MEDS: KLOR-CON PO SCH ×2 (11:06→22:05)
[2016-10-01] MEDS: SODIUM BICARBONATE PO SCH ×3 (11:18→22:30)
--- NOTE | 2016-10-01 13:21 | Progress Note ---
Assessment and Plan Assessment and plan: 1. Moderate to severe hypokalemia secondary to renal tubular acidosis-replace with po supplementation; cont with oral potassium supplementation; repeat level in the a.m 2. SLE/rheumatoid arthritis-stable. 3. DVT prophylaxis Lovenox History Interval history: f/u hypokalemia; , renal tubular acidosis Patient seen on the bedside. She has no complaints today Hospitalist Physical - Constitutional Vitals: Temp Pulse Resp BP Pulse Ox 97.6 F 70 20 93/52 97 10/01/16 11:29 10/01/16 11:29 10/01/16 11:29 10/01/16 11:29 10/01/16 11:29 General appearance: Present: no acute distress, well-nourished - EENT Eyes: Present: PERRL, EOM intact. Absent: scleral icterus, conjunctival injection ENT: hearing intact, clear oral mucosa, no oropharyngeal erythema, no poor dentition - Neck Neck: Present: supple, normal ROM. Absent: enlarged thyroid, masses or JVD - Respiratory Respiratory effort: normal Respiratory: negative: diminished, rales, rhonchi, wheezing - Cardiovascular Rhythm: regular Heart Sounds: Present: S1 & S2. Absent: gallop - Extremities Extremities: no ischemia, pulses intact, pulses symmetrical, No edema Peripheral Pulses: within normal limits - Abdominal General gastrointestinal: soft, non-tender, non-distended, normal bowel sounds - Integumentary Integumentary: Present: clear - Psychiatric Psychiatric: appropriate mood/affect, intact judgment & insight, cooperative - Neurologic Neurologic: CNII-XII intact, moves all extremities Results - Labs CBC & Chem 7: 09/28/16 05:59 10/01/16 06:37 Labs: Laboratory Last Values WBC 4.9 K/mm3 (4.5-11.0) 09/28/16 05:59 RBC 3.65 M/mm3 (3.65-5.03) 09/28/16 05:59 Hgb 10.2 gm/dl (10.1-14.3) 09/28/16 05:59 Hct 33.3 % (30.3-42.9) 09/28/16 05:59 MCV 86 fl (79-97) 09/28/16 05:59 MCH 28 pg (28-32) 09/28/16 05:59 MCHC 33 % (30-34) 09/28/16 05:59 RDW 18.6 % (13.2-15.2) H 09/28/16 05:59 Plt Count 369 K/mm3 (140-440) 09/28/16 05:59 Lymph % (Auto) 31.0 % (13.4-35.0) 09/28/16 05:59 [place] % (Auto) 14.4 % (0.0-7.3) H 09/28/16 05:59 Eos % (Auto) 1.9 % (0.0-4.3) 09/28/16 05:59 Baso % (Auto) 0.5 % (0.0-1.8) 09/28/16 05:59 Lymph # 1.5 K/mm3 (1.2-5.4) 09/28/16 05:59 [place] # 0.7 K/mm3 (0.0-0.8) 09/28/16 05:59 Eos # 0.1 K/mm3 (0.0-0.4) 09/28/16 05:59 Baso # 0.0 K/mm3 (0.0-0.1) 09/28/16 05:59 Seg Neutrophils % 52.2 % (40.0-70.0) 09/28/16 05:59 Seg Neutrophils # 2.5 K/mm3 (1.8-7.7) 09/28/16 05:59 Sodium 138 mmol/L (137-145) 10/01/16 06:37 Potassium 2.8 mmol/L (3.6-5.0) L* 10/01/16 06:37 Chloride 111.0 mmol/L (98-107) H 10/01/16 06:37 Carbon Dioxide 16 mmol/L (22-30) L 10/01/16 06:37 Anion Gap 14 mmol/L 10/01/16 06:37 BUN 5 mg/dL (7-17) L 10/01/16 06:37 Creatinine 0.6 mg/dL (0.7-1.2) L 10/01/16 06:37 Estimated GFR > 60 ml/min 10/01/16 06:37 BUN/Creatinine Ratio 8.33 % 10/01/16 06:37 Glucose 86 mg/dL (65-100) 10/01/16 06:37 Calcium 7.3 mg/dL (8.4-10.2) L 10/01/16 06:37 Phosphorus 2.8 mg/dL (2.5-4.5) D 09/30/16 05:28 Magnesium 2.0 mg/dL (1.7-2.3) 10/01/16 06:37 Total Bilirubin 0.9 mg/dL (0.1-1.2) 09/27/16 17:08 AST 25 units/L (5-40) 09/27/16 17:08 ALT 14 units/L (7-56) 09/27/16 17:08 Alkaline Phosphatase 78 units/L (35-129) 09/27/16 17:08 Total Creatine Kinase 280 units/L (30-135) H 09/29/16 08:06 Total Protein 10.8 g/dL (6.3-8.2) H 09/27/16 17:08 Albumin 4.1 g/dL (3.9-5) 09/27/16 17:08 Albumin/Globulin Ratio 0.6 % 09/27/16 17:08 Amylase 114 units/L (27-131) 09/27/16 17:08 Lipase 14 units/L (13-60) 09/27/16 17:08 Urine Color Straw (Yellow) 09/28/16 00:13 Urine Turbidity Clear (Clear) 09/28/16 00:13 Urine pH 7.0 (5.0-7.0) 09/28/16 00:13 Ur Specific [place] 1.009 (1.003-1.030) 09/28/16 00:13 Urine Protein 30 mg/dl mg/dL (Negative) 09/28/16 00:13 Urine Glucose (UA) Neg mg/dL (Negative) 09/28/16 00:13 Urine Ketones Neg mg/dL (Negative) 09/28/16 00:13 Urine Blood Neg (Negative) 09/28/16 00:13 Urine Nitrite Neg (Negative) 09/28/16 00:13 Urine Bilirubin Neg (Negative) 09/28/16 00:13 Urine Urobilinogen < 2.0 mg/dL (<2.0) 09/28/16 00:13 Ur Leukocyte Esterase Neg (Negative) 09/28/16 00:13 Urine WBC (Auto) 1.0 /HPF (0.0-6.0) 09/28/16 00:13 Urine RBC (Auto) 1.0 /HPF (0.0-6.0) 09/28/16 00:13 U Epithel Cells (Auto) 2.0 /HPF (0-13.0) 09/28/16 00:13 Amorphous Crystals Few 09/28/16 00:13 Urine Mucus Few /HPF 09/28/16 00:13 Ketones 4.0 mg/dL (0.2-2.8) H 09/27/16 17:08
[2016-10-01] MEDS: NACL 0.9% 1000 ML 1,000 ML IV SCH (15:35)
[2016-10-01] MEDS ORDERED: K-DUR PO ONE (21:00)
[2016-10-02] MEDS: SYNTHROID PO SCH (06:20)
[2016-10-02 06:48] LABS: BUN/Creatinine Ratio 8.33; Blood Urea Nitrogen 5 mg/dL (7-17); Calcium 7.2 mg/dL (8.4-10.2); Carbon Dioxide 17 mmol/L (22-30); Chloride 111.8 mmol/L (98-107); Glucose 86 mg/dL (65-100); Potassium 3.5 mmol/L (3.6-5.0); Sodium 140 mmol/L (137-145)
[2016-10-02 06:49] LABS: Anion Gap 15 mmol/L
--- NOTE | 2016-10-02 09:11 | Progress Note ---
Assessment and Plan - Patient Problems (1) Hypokalemia Status: Acute Plan to address problem: Hypokalemia in the setting of RTA. Potassium level is better today. Continue K supplement. (2) RTA (renal tubular acidosis) Status: Acute Plan to address problem: Continue bicarbonate supplement. Compliance encouraged. (3) Volume depletion Status: Acute Plan to address problem: IV fluids. Subjective Date of service: 10/02/16 Interval history: Patient is feeling better. Objective - Vital Signs Vital signs: Vital Signs - 12hr 10/01/16 10/02/16 10/02/16 23:00 01:25 06:32 Temperature 97.9 F 98.4 F Pulse Rate 71 Pulse Rate [ 75 68 Apical] Respiratory 20 20 Rate Blood Pressure 98/47 94/47 [Right Arm] O2 Sat by Pulse 100 100 Oximetry 10/02/16 07:45 Temperature 97.4 F L Pulse Rate Pulse Rate [ 77 Apical] Respiratory 20 Rate Blood Pressure 96/54 [Right Arm] O2 Sat by Pulse 97 Oximetry - General Appearance General appearance: well-developed, appears stated age, other (no distress) EENT: mucous membranes moist, hearing intact, vision intact Neck: no JVD, no carotid bruit, supple Respiratory: Present: Clear to Ascultation. Absent: Ronchi Cardiology: regular, S1S2, no murmurs Gastrointestinal: normoactive bowel sounds, no tenderness, no distended, no guarding Integumentary: no rash Neurologic: no focal deficit, alert and oriented x3, CN 3-12 intact Musculoskeletal: other (no edema) Psychiatric: mood/affect appropriate - Lab 09/28/16 05:59 10/02/16 06:03 Most recent lab results Calcium 7.2 mg/dL (8.4-10.2) L 10/02/16 06:03 Phosphorus 2.8 mg/dL (2.5-4.5) D 09/30/16 05:28 Magnesium 2.0 mg/dL (1.7-2.3) 10/01/16 06:37
--- NOTE | 2016-10-02 09:57 | Discharge Summary ---
Providers - Providers Date of Admission: 09/27/16 21:28 Date of discharge: 10/02/16 Attending physician: CROW CANDELARIO Primary care physician: UNIT CLERK Hospitalization Condition: Stable Hospital course: Patient is a 46 yo AAF with history significant for Lupus, RTA and chronic hypokalemia came to ER with muscle cramps and generalized weakness. She has been noncompliant with her potassium supplement for quite some time. She reported vomiting for one day prior to admission. She goes to the [facility] but has not been there in over 2 months. She has had previous similar admisions in the past. Her admission K level was 1.9, which has improved to 3.5. Patient denies any diarrhea, dizziness, cp, syncope or fever. Patient was seen by nephrology consultation. Patient received appropriate supplementation and stable for discharge. Patient is a follow-up at the [facility] tomorrow. Disposition: DISCHARGED TO HOME OR SELFCARE Time spent for discharge: 35 Core Measure Documentation - Palliative Care Palliative Care/ Comfort Measures: Not Applicable - Core Measures Any of the following diagnoses?: none Exam - Constitutional Vitals: Temp Pulse Resp BP Pulse Ox 97.4 F L 77 20 96/54 97 10/02/16 07:45 10/02/16 07:45 10/02/16 07:45 10/02/16 07:45 10/02/16 07:45 General appearance: Present: no acute distress, well-nourished - EENT Eyes: Present: PERRL ENT: hearing intact, clear oral mucosa - Neck Neck: Present: supple, normal ROM - Respiratory Respiratory effort: normal Respiratory: bilateral: CTA - Cardiovascular Heart Sounds: Present: S1 & S2. Absent: rub, click - Extremities Extremities: pulses symmetrical, No edema Peripheral Pulses: within normal limits - Abdominal General gastrointestinal: Present: soft, non-tender, non-distended, normal bowel sounds Female genitourinary: Present: normal - Integumentary Integumentary: Present: clear, warm, dry - Musculoskeletal Musculoskeletal: gait normal, strength equal bilaterally - Psychiatric Psychiatric: appropriate mood/affect, intact judgment & insight - Neurologic Neurologic: CNII-XII intact, moves all extremities Plan Activity: no restrictions Weight Bearing Status: Full Weight Bearing Diet: regular Follow up with: PRIMARY CAREMD [Primary Care Provider] - 7 Days Forms: Discharge Signature Page Prescriptions: Potassium Bicarb/Citrate [Klor-Con Eff] 50 meq PO BID #60 tablet.eff Sodium Bicarbonate 2,600 mg PO TID 30 Days Sodium Bicarbonate 2,600 mg PO TID 30 Days oxyCODONE /ACETAMINOPHEN [Percocet 5/325 mg] 1 tab PO Q6H PRN #15 tablet PRN Reason: Pain, Moderate (4-6)
[2016-10-02] MEDS: LOVENOX SUB-Q SCH (10:11)
[2016-10-02] MEDS: SODIUM BICARBONATE PO SCH (10:11)
[2016-10-02] MEDS: KLOR-CON PO SCH (10:14)
[2016-10-02 11:21] VITALS: BP 98/55
== END 2016-10-02 15:28 | disposition home or self-care (01) | DRG 641 ==
LOC: ED 15:56 → 4A 21:28
PROVIDERS: ADMIT Internal Medicine; ATTEND Hospitalist
DX: E87.6 Hypokalemia (principal); E03.9 Hypothyroidism, unspecified; M06.9 Rheumatoid arthritis, unspecified; E86.9 Volume depletion, unspecified; M32.9 Systemic lupus erythematosus, unspecified; Z90.89 Acquired absence of other organs; Z91.14 Patient's other noncompliance with medication regimen
CPT/HCPCS: 36415; 71010; 80048; 80053; 81001; 82010; 82150; 82550; 83690; 83735; 84100; 84132; 85025; 90686; 93005; 93010; 96361; 96374; 96375; J1650; J2405; J3475; J3480; J7030; J7040

== ENCOUNTER 2016-11-30 19:46 | Inpatient (IN) | payer SELFPAY ==
--- NOTE | 2016-11-30 20:05 | Emergency Department Report ---
Chief Complaint: Abdominal Pain Stated Complaint: CRAMPS IN LEGS AND ARMS Time Seen by Provider: 11/30/16 19:58 - HPI History of Present Illness: 46-year-old female presents today with a cramping of her arms and legs. Patient states that her potassium is probably low. History of renal tubular acidosis with potassium loss. Positive for nausea and vomiting and abdominal pain. Denies fever, chills, chest pain, shortness of breath. - ROS Review of Systems: Per HPI - Exam Vital Signs: Vital Signs 11/30/16 19:52 Temperature 98.8 F Pulse Rate 70 Respiratory 14 Rate Blood Pressure 114/70 O2 Sat by Pulse 100 Oximetry Physical Exam: General: 46-year-old female in no acute distress. Well-developed, well- nourished. CV: Regular rate and rhythm. Lungs: Clear to auscultation bilaterally. Abdomen: No tenderness to palpation. No guarding or rebound tenderness. Normal bowel sounds. Negative for CVA tenderness bilaterally. MSE screening note: Focused history and physical exam performed. Due to findings the following was ordered: ED Disposition for MSE Condition: Stable Instructions: Abdominal Pain (ED)
[2016-11-30 20:34] LABS: Basophils % (Auto) 0.5 % (0.0-1.8); Eosinophils % (Auto) 0.1 % (0.0-4.3); Hematocrit 39.2 % (30.3-42.9); Hemoglobin 12.7 gm/dl (10.1-14.3); Mean Corpuscular HGB Conc 32 % (30-34); Mean Corpuscular Hemoglobin 28 pg (28-32); Mean Corpuscular Volume 87 fl (79-97); Platelet Count 365 K/mm3 (140-440); Red Blood Count 4.53 M/mm3 (3.65-5.03); Red Cell Distribution Width 16.5 % (13.2-15.2); White Blood Count 5.9 K/mm3 (4.5-11.0)
[2016-11-30 20:56] LABS: Amylase 124 units/L (27-131); Anion Gap 20 mmol/L; BUN/Creatinine Ratio 14.54; Blood Urea Nitrogen 16 mg/dL (7-17); Calcium 9.6 mg/dL (8.4-10.2); Carbon Dioxide 15 mmol/L (22-30); Chloride 101.2 mmol/L (98-107); Glucose 108 mg/dL (65-100); Lipase 18 units/L (13-60); Sodium 134 mmol/L (137-145)
[2016-11-30 21:18] LABS: Potassium 2.5 mmol/L (3.6-5.0)
[2016-11-30] MEDS ORDERED: K-DUR PO ONE (21:42)
[2016-11-30 22:18] LABS: Bilirubin,Urine NEG (Negative); Blood,Urine NEG (Negative); Ketones,Urine NEG (Negative); Leukocyte Esterase,Urine TR (Negative); Nitrite,Urine NEG (Negative); RBC,Urine < 1.0 /HPF (0.0-6.0); Urobilinogen,Urine < 2.0 mg/dL (<2.0)
[2016-12-01] MEDS ORDERED: MORPHINE IV ONE (06:34)
[2016-12-01] MEDS ORDERED: ZOFRAN IV ONE (06:34)
[2016-12-01] MEDS ORDERED: NACL 0.9% 1000 ML 1,000 ML IV ONE ×2 (06:34→08:25)
--- NOTE | 2016-12-01 07:03 | Emergency Department Report ---
ED N/V/D HPI - General Chief complaint: Abdominal Pain Stated complaint: CRAMPS IN LEGS AND ARMS Time Seen by Provider: 11/30/16 19:58 Source: patient Mode of arrival: Ambulatory Limitations: No Limitations - History of Present Illness Initial comments: 46-year-old female with a past medical history rheumatoid arthritis, lupus, renal tubular acidosis, previous thyroidectomy, and recurrent hypokalemia presents to the hospital with complaints of nausea, vomiting, and leg and arm cramps. Patient has had nausea and vomiting with poor by mouth tolerance for the past 2 days. She now is having leg cramps similar to previous episodes of hypokalemia. Patient takes potassium chloride 20 mEq 3 times a day. She cannot afford to see a product support analyst for her RTA. Patient appears of intermittent generalized achy abdominal pain rated moderate in intensity. MRSA palpation and vomiting. No alleviating factors. Denies diarrhea, fever, melena , hematochezia. States had mild blood-tinged vomiting today. Previous medical record reviewed and patient was admitted here in September [address] Hughes product support analyst consulted. - Related Data Previous Rx's Medication Instructions Recorded Last Taken Type Levothyroxine [Synthroid] 100 mcg PO DAILY@0600 tablet 10/02/16 Unknown Rx Potassium Bicarb/Citrate [Klor-Con 50 meq PO BID #60 tablet.eff 10/02/16 Unknown Rx Eff] Sodium Bicarbonate 2,600 mg PO TID 30 Days 10/02/16 Unknown Rx Sodium Bicarbonate 2,600 mg PO TID 30 Days 10/02/16 Unknown Rx oxyCODONE /ACETAMINOPHEN [Percocet 1 tab PO Q6H PRN #15 tablet 10/02/16 Unknown Rx 5/325 mg] Allergies Allergy/AdvReac Type Severity Reaction Status Date / Time No Known Allergies Allergy Verified 09/27/16 16:35 ED Review of Systems ROS: Stated complaint: CRAMPS IN LEGS AND ARMS Other details as noted in HPI Comment: All other systems reviewed and negative Other: Constitutional: No fevers chill Eyes: No eye pain visual changes ENT: No ear pain or throat pain Neck: Denies pain Respiratory: Denies cough wheezing shortness of breath Cardiovascular: Denies chest pain, palpitations, syncope GI: as per hpi : Denies dysuria, urinary frequency, or urgency Musculoskeletal: Denies back pain, joint swelling Skin: Denies rash, lesions, erythema Neurologic: Denies headache, numbness, weakness Psychiatric: Denies suicidal ideation, hallucinations Hematological/lymphatic: Denies easy bruising, lymphadenopathy ED Past Medical Hx - Past Medical History Hx Congestive Heart Failure: No Hx Diabetes: No Hx Arthritis: Yes (rheumatoid) Hx Asthma: No Hx COPD: No Additional medical history: Lupus. Surgical hypothyroidism. 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 - Surgical History Additional Surgical History: thyroidectomy - Social History Smoking Status: Never Smoker Substance Use Type: None - Medications Home Medications: Home Medications Medication Instructions Recorded Confirmed Last Taken Type Levothyroxine [Synthroid] 100 mcg PO DAILY@0600 tablet 10/02/16 Unknown Rx Potassium Bicarb/Citrate [Klor-Con 50 meq PO BID #60 tablet.eff 10/02/16 Unknown Rx Eff] Sodium Bicarbonate 2,600 mg PO TID 30 Days 10/02/16 Unknown Rx Sodium Bicarbonate 2,600 mg PO TID 30 Days 10/02/16 Unknown Rx oxyCODONE /ACETAMINOPHEN [Percocet 1 tab PO Q6H PRN #15 tablet 10/02/16 Unknown Rx 5/325 mg] ED Physical Exam - General Limitations: No Limitations - Other Other exam information: General: No limitations, patient is alert in no acute distress Head exam: Atraumatic, normocephalic Eyes exam: Normal appearance, pupils equal reactive to light, extraocular movements intact ENT: Moist mucous membrane, normal oropharynx Neck exam: Normal inspection, full range of motion, no meningismus nontender Respiratory exam: Clear to auscultation bilateral, no wheezes, rales, crackles Cardiovascular: Normal rate and rhythm, normal heart sounds Abdomen: Soft, nondistended, mild epigastric tenderness, with normal bowel sounds, no rebound, or guarding Extremity: Full range of motion normal inspection no deformity Back: Normal Inspection, full range of motion, no tenderness Neurologic: Alert, oriented x3, cranial nerves intact, no motor or sensory deficit Psychiatric: normal affect, normal mood Skin: Warm, dry, intact ED Course Vital Signs 11/30/16 11/30/16 12/01/16 19:52 23:54 04:30 Temperature 98.8 F 98.2 F 98.2 F Pulse Rate 70 70 81 Respiratory 14 14 12 Rate Blood Pressure 114/70 109/66 Blood Pressure 101/56 [Left] O2 Sat by Pulse 100 100 99 Oximetry 12/01/16 05:46 Temperature Pulse Rate Respiratory 12 Rate Blood Pressure Blood Pressure [Left] O2 Sat by Pulse 100 Oximetry - Reevaluation(s) Reevaluation #1: 12/01/16 07:06 Patient received by mouth potassium 60 mEq at 21:52 with repeat potassium increasing from 2.5 to 2.6. ED Medical Decision Making - Lab Data Result diagrams: 11/30/16 20:22 12/01/16 01:54 Lab Results 11/30/16 11/30/16 11/30/16 Range/Units 20:22 20:22 22:00 WBC 5.9 (4.5-11.0) K/mm3 RBC 4.53 (3.65-5.03) M/mm3 Hgb 12.7 (10.1-14.3) gm/dl Hct 39.2 (30.3-42.9) % MCV 87 (79-97) fl MCH 28 (28-32) pg MCHC 32 (30-34) % RDW 16.5 H (13.2-15.2) % Plt Count 365 (140-440) K/mm3 Lymph % (Auto) 24.4 (13.4-35.0) % [place] % (Auto) 7.1 (0.0-7.3) % Eos % (Auto) 0.1 (0.0-4.3) % Baso % (Auto) 0.5 (0.0-1.8) % Lymph # 1.4 (1.2-5.4) K/mm3 [place] # 0.4 (0.0-0.8) K/mm3 Eos # 0.0 (0.0-0.4) K/mm3 Baso # 0.0 (0.0-0.1) K/mm3 Seg Neutrophils % 67.9 (40.0-70.0) % Seg Neutrophils # 4.0 (1.8-7.7) K/mm3 Sodium 134 L (137-145) mmol/L Potassium 2.5 L* (3.6-5.0) mmol/L Chloride 101.2 (98-107) mmol/L Carbon Dioxide 15 L (22-30) mmol/L Anion Gap 20 mmol/L BUN 16 (7-17) mg/dL Creatinine 1.1 (0.7-1.2) mg/dL Estimated GFR > 60 ml/min BUN/Creatinine Ratio 14.54 % Glucose 108 H (65-100) mg/dL Calcium 9.6 (8.4-10.2) mg/dL Magnesium (1.7-2.3) mg/dL Amylase 124 (27-131) units/L Lipase 18 (13-60) units/L Urine Color Yellow (Yellow) Urine Turbidity Clear (Clear) Urine pH 7.0 (5.0-7.0) Ur Specific [place] 1.013 (1.003-1.030) Urine Protein 100 mg/dl (Negative) mg/dL Urine Glucose (UA) Neg (Negative) mg/dL Urine Ketones Neg (Negative) mg/dL Urine Blood Neg (Negative) Urine Nitrite Neg (Negative) Urine Bilirubin Neg (Negative) Urine Urobilinogen < 2.0 (<2.0) mg/dL Ur Leukocyte Esterase Tr (Negative) Urine WBC (Auto) 4.0 (0.0-6.0) /HPF Urine RBC (Auto) < 1.0 (0.0-6.0) /HPF U Epithel Cells (Auto) 1.0 (0-13.0) /HPF Urine HCG, Qual Negative (Negative) 12/01/16 12/01/16 Range/Units 01:54 01:54 WBC (4.5-11.0) K/mm3 RBC (3.65-5.03) M/mm3 Hgb (10.1-14.3) gm/dl Hct (30.3-42.9) % MCV (79-97) fl MCH (28-32) pg MCHC (30-34) % RDW (13.2-15.2) % Plt Count (140-440) K/mm3 Lymph % (Auto) (13.4-35.0) % [place] % (Auto) (0.0-7.3) % Eos % (Auto) (0.0-4.3) % Baso % (Auto) (0.0-1.8) % Lymph # (1.2-5.4) K/mm3 [place] # (0.0-0.8) K/mm3 Eos # (0.0-0.4) K/mm3 Baso # (0.0-0.1) K/mm3 Seg Neutrophils % (40.0-70.0) % Seg Neutrophils # (1.8-7.7) K/mm3 Sodium (137-145) mmol/L Potassium 2.6 L* (3.6-5.0) mmol/L Chloride (98-107) mmol/L Carbon Dioxide (22-30) mmol/L Anion Gap mmol/L BUN (7-17) mg/dL Creatinine (0.7-1.2) mg/dL Estimated GFR ml/min BUN/Creatinine Ratio % Glucose (65-100) mg/dL Calcium (8.4-10.2) mg/dL Magnesium 2.5 H (1.7-2.3) mg/dL Amylase (27-131) units/L Lipase (13-60) units/L Urine Color (Yellow) Urine Turbidity (Clear) Urine pH (5.0-7.0) Ur Specific [place] (1.003-1.030) Urine Protein (Negative) mg/dL Urine Glucose (UA) (Negative) mg/dL Urine Ketones (Negative) mg/dL Urine Blood (Negative) Urine Nitrite (Negative) Urine Bilirubin (Negative) Urine Urobilinogen (<2.0) mg/dL Ur Leukocyte Esterase (Negative) Urine WBC (Auto) (0.0-6.0) /HPF Urine RBC (Auto) (0.0-6.0) /HPF U Epithel Cells (Auto) (0-13.0) /HPF Urine HCG, Qual (Negative) - Medical Decision Making Patient has a pre-existing potassium deficit secondary to RTA which has been worsened by acute episode of nausea and vomiting. Patient will be admitted to the hospital receive IV potassium supplementation and stabilization of GI symptoms. Potassium 40 mEq IV ordered in the ED - Differential Diagnosis gastritis, pancreatitis, cholecystitis, dehydration, hypokalemia Critical Care Time: No Critical care attestation.: If time is entered above; I have spent that time in minutes in the direct care of this critically ill patient, excluding procedure time. ED Disposition Clinical Impression: Muscle cramps, Systemic lupus erythematosus, Hypokalemia, Nausea and vomiting Disposition: OP ADMITTED IP TO THIS HOSP Is pt being admited?: Yes Condition: Stable Referrals: PRIMARY CARE, [Primary Care Provider] - 3-5 Days Time of Disposition: 07:06 (Hosp)
[2016-12-01] MEDS: KCL 10MEQ/100ML 10 MEQ/100 ML BAG IV SCH ×8 (07:12→18:00)
--- NOTE | 2016-12-01 09:24 | History and Physical Report ---
History of Present Illness Date of examination: 12/01/16 Date of admission: 12/01/16 07:30 Chief complaint: hypokalemia History of present illness: 46-year-old female with a past medical history rheumatoid arthritis, lupus, renal tubular acidosis, previous thyroidectomy, and recurrent hypokalemia presents to the hospital with complaints of nausea, vomiting, and leg and arm cramps. Patient has had nausea and vomiting with poor by mouth tolerance for the past 2 days. She now is having leg cramps similar to previous episodes of hypokalemia. Patient takes potassium chloride 20 mEq 3 times a day. She cannot afford to see a peanut shaker for her RTA. He states that she only sees nephrology when she is admitted to the hospital. Patient was admitted here in September 2016 with a potassium of 1.9 and similar symptoms. No chest pain or shortness of breath. No headache or visual disturbances. No cough or cold symptoms. Past History Past Medical History: hypothyroidism, other (RA, lupus) Past Surgical History: thyroidectomy Social history: no significant social history Family history: no significant family history Medications and Allergies Allergies Allergy/AdvReac Type Severity Reaction Status Date / Time No Known Allergies Allergy Verified 09/27/16 16:35 Home Medications Medication Instructions Recorded Confirmed Last Taken Type Potassium Bicarb/Citrate [Klor-Con 50 meq PO BID #60 tablet.eff 10/02/16 Unknown Rx Eff] Levothyroxine 125 mcg PO QDAY 12/01/16 12/01/16 Unknown History Active Meds: Active Medications Potassium Chloride (Kcl 10meq/100ml) 10 meq in 100 mls @ 100 mls/hr IV Q1H LION Stop: 12/01/16 10:59 Last Admin: 12/01/16 08:42 Dose: 100 mls/hr Review of Systems All systems: negative Exam - Constitutional Vitals: Temp Pulse Resp BP Pulse Ox 97.8 F 75 16 109/53 100 12/01/16 09:00 12/01/16 09:00 12/01/16 09:00 12/01/16 09:00 12/01/16 09:00 General appearance: Present: no acute distress, well-nourished - EENT Eyes: Present: PERRL ENT: hearing intact, clear oral mucosa - Neck Neck: Present: supple, normal ROM - Respiratory Respiratory effort: normal Respiratory: bilateral: CTA - Cardiovascular Heart Sounds: Present: S1 & S2. Absent: rub, click - Extremities Extremities: pulses symmetrical, No edema Peripheral Pulses: within normal limits - Abdominal General gastrointestinal: Present: soft, non-tender, non-distended, normal bowel sounds Female genitourinary: Present: normal - Integumentary Integumentary: Present: clear, warm, dry - Musculoskeletal Musculoskeletal: gait normal, strength equal bilaterally - Psychiatric Psychiatric: appropriate mood/affect, intact judgment & insight - Neurologic Neurologic: CNII-XII intact, moves all extremities Results - Labs CBC & Chem 7: 11/30/16 20:22 12/01/16 01:54 Labs: Laboratory Last Values WBC 5.9 K/mm3 (4.5-11.0) 11/30/16 20: RBC 4.53 M/mm3 (3.65-5.03) 11/30/16 20: Hgb 12.7 gm/dl (10.1-14.3) 11/30/16 20: Hct 39.2 % (30.3-42.9) 11/30/16 20: MCV 87 fl (79-97) 11/30/16 20:22 MCH 28 pg (28-32) 11/30/16 20: MCHC 32 % (30-34) 11/30/16 20: RDW 16.5 % (13.2-15.2) H 11/30/16 20:22 Plt Count 365 K/mm3 (140-440) 11/30/16 20:22 Lymph % (Auto) 24.4 % (13.4-35.0) 11/30/16 20: [place] % (Auto) 7.1 % (0.0-7.3) 11/30/16 20:22 Eos % (Auto) 0.1 % (0.0-4.3) 11/30/16 20:22 Baso % (Auto) 0.5 % (0.0-1.8) 11/30/16 20: Lymph # 1.4 K/mm3 (1.2-5.4) 11/30/16 20:22 [place] # 0.4 K/mm3 (0.0-0.8) 11/30/16 20:22 Eos # 0.0 K/mm3 (0.0-0.4) 11/30/16 20:22 Baso # 0.0 K/mm3 (0.0-0.1) 11/30/16 20:22 Seg Neutrophils % 67.9 % (40.0-70.0) 11/30/16 20:22 Seg Neutrophils # 4.0 K/mm3 (1.8-7.7) 11/30/16 20:22 Sodium 134 mmol/L (137-145) L 11/30/16 20:22 Potassium 2.6 mmol/L (3.6-5.0) L* 12/01/16 01:54 Chloride 101.2 mmol/L (98-107) 11/30/16 20:22 Carbon Dioxide 15 mmol/L (22-30) L 11/30/16 20:22 Anion Gap 20 mmol/L 11/30/16 20:22 BUN 16 mg/dL (7-17) 11/30/16 20:22 Creatinine 1.1 mg/dL (0.7-1.2) 11/30/16 20:22 Estimated GFR > 60 ml/min 11/30/16 20:22 BUN/Creatinine Ratio 14.54 % 11/30/16 20:22 Glucose 108 mg/dL (65-100) H 11/30/16 20:22 Calcium 9.6 mg/dL (8.4-10.2) 11/30/16 20:22 Magnesium 2.5 mg/dL (1.7-2.3) H 12/01/16 01:54 Amylase 124 units/L (27-131) 11/30/16 20:22 Lipase 18 units/L (13-60) 11/30/16 20:22 Urine Color Yellow (Yellow) 11/30/16 22:00 Urine Turbidity Clear (Clear) 11/30/16 22:00 Urine pH 7.0 (5.0-7.0) 11/30/16 22:00 Ur Specific [place] 1.013 (1.003-1.030) 11/30/16 22:00 Urine Protein 100 mg/dl mg/dL (Negative) 11/30/16 22:00 Urine Glucose (UA) Neg mg/dL (Negative) 11/30/16 22:00 Urine Ketones Neg mg/dL (Negative) 11/30/16 22:00 Urine Blood Neg (Negative) 11/30/16 22:00 Urine Nitrite Neg (Negative) 11/30/16 22:00 Urine Bilirubin Neg (Negative) 11/30/16 22:00 Urine Urobilinogen < 2.0 mg/dL (<2.0) 11/30/16 22:00 Ur Leukocyte Esterase Tr (Negative) 11/30/16 22:00 Urine WBC (Auto) 4.0 /HPF (0.0-6.0) 11/30/16 22:00 Urine RBC (Auto) < 1.0 /HPF (0.0-6.0) 11/30/16 22:00 U Epithel Cells (Auto) 1.0 /HPF (0-13.0) 11/30/16 22:00 Urine HCG, Qual Negative (Negative) 11/30/16 22:00 Assessment and Plan Assessment and plan: 1. Moderate to severe hypokalemia secondary to renal tubular acidosis. We will replace with oral and IV potassium supplementation, follow up with nephrology for further recommendations. We'll recheck level in the morning 2. SLE/rheumatoid arthritis-stable. 3. Renal tubular acidosis. As above. 4. DVT prophylaxis Lovenox
[2016-12-01] MEDS ORDERED: DULCOLAX PR PRN (10:00)
[2016-12-01] MEDS ORDERED: ZOFRAN IV PRN (10:00)
[2016-12-01] MEDS ORDERED: MILK OF MAGNESIA PO PRN (10:00)
[2016-12-01] MEDS ORDERED: TYLENOL PO PRN (10:00)
--- NOTE | 2016-12-01 11:52 | Consultation ---
History of Present Illness - Reason for Consult Consult date: 12/01/16 hypokalemia, metabolic acidosis - History of Present Illness The patient is a 46-year-old AAF with history significant for Rheumatoid Arthritis, Lupus, Renal tubular acidosis, Hypothyroid 2/2 thyroidectomy and recurrent Hypokalemia came to the hospital with complaints of nausea, vomiting and body cramps for the past 2 days. She had several episodes of vomiting with poor PO intake for about 2 days. She had similar presentations in the past. Her symptoms are improving. Patient is not followed by any Sales Development Director at this time. Patient also reports intermittent generalized achy abdominal pain. Patient denies diarrhea, fever, melena, rectal bleeding, rash, dizziness or syncope. Her potassium is 2.5 and bicarb is 15. Her baseline K level is around 3. Past History Past Medical History: hypothyroidism, other (RA, lupus) Past Surgical History: thyroidectomy Social history: no significant social history Family history: no significant family history Medications and Allergies Allergies Allergy/AdvReac Type Severity Reaction Status Date / Time No Known Allergies Allergy Verified 09/27/16 16:35 Home Medications Medication Instructions Recorded Confirmed Last Taken Type Potassium Bicarb/Citrate [Klor-Con 50 meq PO BID #60 tablet.eff 10/02/16 Unknown Rx Eff] Levothyroxine 125 mcg PO QDAY 12/01/16 12/01/16 Unknown History Active Meds: Active Medications Acetaminophen (Tylenol) 650 mg PO Q4H PRN PRN Reason: Pain MILD(1-3)/Fever >100.5/POWERS Bisacodyl (Dulcolax) 10 mg HI QDAY PRN PRN Reason: Constipation unrelieved by MOM Enoxaparin Sodium (Lovenox) 40 mg SUB-Q QDAY LION Sodium Chloride (Nacl 0.9% 1000 Ml) 1,000 mls @ 250 mls/hr IV DIRECT LION Magnesium Hydroxide (Milk Of Magnesia) 30 ml PO Q4H PRN PRN Reason: Constipation Ondansetron HCl (Zofran) 4 mg IV Q8H PRN PRN Reason: N/V unrelieved by Reglan Review of Systems Constitutional: weakness, no weight loss, no weight gain, no fever, no chills Ears, nose, mouth and throat: no sinus pressure, no sinus pain, no epistaxis, no bleeding gums Breasts: deferred Cardiovascular: no chest pain, no orthopnea, no edema, no syncope, no lightheadedness, no shortness of breath Respiratory: no cough, no hemoptysis, no shortness of breath Gastrointestinal: abdominal pain, nausea, vomiting, no diarrhea, no BRBPR, no melena Genitourinary Female: no hematuria Rectal: no bleeding Musculoskeletal: muscle cramps, no neck stiffness, no leg numbness/tingling, no redness of joints Integumentary: no rash, no wounds, no jaundice Neurological: no seizures, no syncope, no vertigo Psychiatric: no hallucinations, no confusion Hematologic/Lymphatic: no easy bruising, no easy bleeding Allergic/Immunologic: no urticaria, no wheezing Exam - Vital Signs Vital signs: Vital Signs Temp Pulse Resp BP Pulse Ox 98.8 F 70 14 114/70 100 11/30/16 19:52 11/30/16 19:52 11/30/16 19:52 11/30/16 19:52 11/30/16 19:52 - General Appearance General appearance: well-developed, well-nourished, appears stated age, other ( no distress) EENT: PERRL, mucous membranes moist, hearing intact, vision intact Neck: Present: neck supple Respiratory: Clear to Ascultation Heart: regular, S1S2, no murmurs Gastrointestinal: Present: normoactive bowel sounds. Absent: tenderness, distended Integumentary: no rash Neurologic: no focal deficit, no asterixis, alert and oriented x3, CN 3-12 intact Musculoskeletal: Present: other (no edema) Psychiatric: mood/affect appropriate, cooperative Results - Lab Results 12/02/16 05:04 12/03/16 08:13 Most recent lab results Calcium 9.6 mg/dL (8.4-10.2) 11/30/16 20:22 Magnesium 2.5 mg/dL (1.7-2.3) H 12/01/16 01:54 Assessment and Plan - Patient Problems (1) Hypokalemia Current Visit: Yes Status: Acute Plan to address problem: Acute on chronic hypokalemia exacerbated by persistent N & V. Continue IV and PO Potassium supplement. Monitor K level. 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 Start on Potassium bicarbonate. (3) Volume depletion Current Visit: No Status: Acute Plan to address problem: Continue IV fluids.
[2016-12-01] MEDS: LOVENOX SUB-Q SCH (12:24)
[2016-12-01] MEDS: NACL 0.9% 1000 ML 1,000 ML IV SCH ×2 (14:15→22:32)
[2016-12-01] MEDS: KLOR-CON PO SCH ×2 (16:02→20:23)
[2016-12-02 05:48] LABS: Basophils % (Auto) 0.6 % (0.0-1.8); Eosinophils % (Auto) 1.1 % (0.0-4.3); Mean Corpuscular HGB Conc 32 % (30-34); Mean Corpuscular Hemoglobin 28 pg (28-32); Mean Corpuscular Volume 86 fl (79-97); Platelet Count 277 K/mm3 (140-440); Red Cell Distribution Width 16.1 % (13.2-15.2); White Blood Count 4.4 K/mm3 (4.5-11.0)
[2016-12-02 06:07] LABS: BUN/Creatinine Ratio 18.88; Blood Urea Nitrogen 17 mg/dL (7-17); Calcium 7.9 mg/dL (8.4-10.2); Carbon Dioxide 13 mmol/L (22-30); Chloride 110.3 mmol/L (98-107); Glucose 86 mg/dL (65-100); Sodium 139 mmol/L (137-145)
[2016-12-02 07:56] LABS: Anion Gap 18 mmol/L; Potassium 2.7 mmol/L (3.6-5.0)
--- NOTE | 2016-12-02 08:49 | Progress Note ---
Assessment and Plan Assessment and plan: 1. Moderate to severe hypokalemia secondary to renal tubular acidosis. Continue to replace with oral and IV potassium supplementation. Nephrology following We'll recheck level in the morning. 2. SLE/rheumatoid arthritis-stable. 3. Renal tubular acidosis. As above. 4. DVT prophylaxis. Lovenox History Interval history: No new issues overnight. Hospitalist Physical - Constitutional Vitals: Temp Pulse Resp BP Pulse Ox 67 F L 18 L 18 90/51 97 12/02/16 08:00 12/02/16 08:00 12/02/16 08:00 12/02/16 08:00 12/02/16 08:00 General appearance: Present: no acute distress, well-nourished - EENT Eyes: Present: PERRL, EOM intact ENT: hearing intact, clear oral mucosa, dentition normal - Neck Neck: Present: supple, normal ROM - Respiratory Respiratory effort: normal Respiratory: bilateral: CTA - Cardiovascular Rhythm: regular Heart Sounds: Present: S1 & S2. Absent: gallop, rub - Extremities Extremities: no ischemia, No edema, Full ROM - Abdominal General gastrointestinal: soft, non-tender, non-distended, normal bowel sounds - Integumentary Integumentary: Present: clear, warm, dry - Neurologic Neurologic: CNII-XII intact, moves all extremities Results - Labs CBC & Chem 7: 12/02/16 05:04 12/02/16 05:04 Labs: Laboratory Last Values WBC 4.4 K/mm3 (4.5-11.0) L 12/02/16 05:04 RBC 3.60 M/mm3 (3.65-5.03) L 12/02/16 05:04 Hgb 10.0 gm/dl (10.1-14.3) L 12/02/16 05:04 Hct 31.0 % (30.3-42.9) D 12/02/16 05:04 MCV 86 fl (79-97) 12/02/16 05:04 MCH 28 pg (28-32) 12/02/16 05:04 MCHC 32 % (30-34) 12/02/16 05:04 RDW 16.1 % (13.2-15.2) H 12/02/16 05:04 Plt Count 277 K/mm3 (140-440) 12/02/16 05:04 Lymph % (Auto) 29.9 % (13.4-35.0) 12/02/16 05:04 [place] % (Auto) 9.1 % (0.0-7.3) H 12/02/16 05:04 Eos % (Auto) 1.1 % (0.0-4.3) 12/02/16 05:04 Baso % (Auto) 0.6 % (0.0-1.8) 12/02/16 05:04 Lymph # 1.3 K/mm3 (1.2-5.4) 12/02/16 05:04 [place] # 0.4 K/mm3 (0.0-0.8) 12/02/16 05:04 Eos # 0.0 K/mm3 (0.0-0.4) 12/02/16 05:04 Baso # 0.0 K/mm3 (0.0-0.1) 12/02/16 05:04 Seg Neutrophils % 59.3 % (40.0-70.0) 12/02/16 05:04 Seg Neutrophils # 2.6 K/mm3 (1.8-7.7) 12/02/16 05:04 Sodium 139 mmol/L (137-145) 12/02/16 05:04 Potassium 2.7 mmol/L (3.6-5.0) L* 12/02/16 05:04 Chloride 110.3 mmol/L (98-107) H 12/02/16 05:04 Carbon Dioxide 13 mmol/L (22-30) L 12/02/16 05:04 Anion Gap 18 mmol/L 12/02/16 05:04 BUN 17 mg/dL (7-17) 12/02/16 05:04 Creatinine 0.9 mg/dL (0.7-1.2) 12/02/16 05:04 Estimated GFR > 60 ml/min 12/02/16 05:04 BUN/Creatinine Ratio 18.88 % 12/02/16 05:04 Glucose 86 mg/dL (65-100) 12/02/16 05:04 Calcium 7.9 mg/dL (8.4-10.2) L D 12/02/16 05:04 Magnesium 2.5 mg/dL (1.7-2.3) H 12/01/16 01:54 Amylase 124 units/L (27-131) 11/30/16 20:22 Lipase 18 units/L (13-60) 11/30/16 20:22 Urine Color Yellow (Yellow) 11/30/16 22:00 Urine Turbidity Clear (Clear) 11/30/16 22:00 Urine pH 7.0 (5.0-7.0) 11/30/16 22:00 Ur Specific [place] 1.013 (1.003-1.030) 11/30/16 22:00 Urine Protein 100 mg/dl mg/dL (Negative) 11/30/16 22:00 Urine Glucose (UA) Neg mg/dL (Negative) 11/30/16 22:00 Urine Ketones Neg mg/dL (Negative) 11/30/16 22:00 Urine Blood Neg (Negative) 11/30/16 22:00 Urine Nitrite Neg (Negative) 11/30/16 22:00 Urine Bilirubin Neg (Negative) 11/30/16 22:00 Urine Urobilinogen < 2.0 mg/dL (<2.0) 11/30/16 22:00 Ur Leukocyte Esterase Tr (Negative) 11/30/16 22:00 Urine WBC (Auto) 4.0 /HPF (0.0-6.0) 11/30/16 22:00 Urine RBC (Auto) < 1.0 /HPF (0.0-6.0) 11/30/16 22:00 U Epithel Cells (Auto) 1.0 /HPF (0-13.0) 11/30/16 22:00 Urine HCG, Qual Negative (Negative) 11/30/16 22:00
--- NOTE | 2016-12-02 09:04 | Progress Note ---
Assessment and Plan - Patient Problems (1) Hypokalemia Current Visit: Yes Status: Acute Plan to address problem: Acute on chronic hypokalemia exacerbated by persistent N & V. Continue IV and PO Potassium supplement. K level remains low. 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 Continue Potassium bicarbonate. (3) Volume depletion Current Visit: No Status: Acute Plan to address problem: Continue IV fluids. Subjective Date of service: 12/02/16 Interval history: Patient is feeling better. Objective - Vital Signs Vital signs: Vital Signs - 12hr 12/01/16 12/01/16 12/02/16 22:00 23:45 08:00 Temperature 97.9 F 67 F L Pulse Rate [ 74 18 L Left Radial] Respiratory 18 18 18 Rate Respiratory 16 Rate [general] Blood Pressure 100/53 90/51 [Left Arm] O2 Sat by Pulse 98 97 Oximetry - General Appearance General appearance: well-developed, well-nourished, appears stated age, other ( no distress) EENT: PERRL, mucous membranes moist, hearing intact, vision intact Neck: no JVD, supple Respiratory: Present: Clear to Ascultation Cardiology: regular, S1S2, no murmurs Gastrointestinal: normoactive bowel sounds, no tenderness, no distended Integumentary: no rash, warm and dry Neurologic: no focal deficit, no asterixis, alert and oriented x3, CN 3-12 intact Musculoskeletal: other (no edema) Psychiatric: mood/affect appropriate, cooperative - Lab 12/02/16 05:04 12/03/16 08:13 Most recent lab results Calcium 7.9 mg/dL (8.4-10.2) L D 12/02/16 05:04 Magnesium 2.5 mg/dL (1.7-2.3) H 12/01/16 01:54
[2016-12-02] MEDS: KCL 10MEQ/100ML 10 MEQ/100 ML BAG IV SCH ×4 (10:23→14:29)
[2016-12-02] MEDS: NACL 0.9% 1000 ML 1,000 ML IV SCH ×3 (10:24→23:07)
[2016-12-02] MEDS: LOVENOX SUB-Q SCH (10:24)
[2016-12-02] MEDS: KLOR-CON PO SCH ×4 (10:34→20:36)
[2016-12-02] MEDS ORDERED: FLUARIX QUAD 2016-2017(36 MOS+) IM ONE (12:00)
[2016-12-03] MEDS: NACL 0.9% 1000 ML 1,000 ML IV SCH ×2 (02:43→06:19)
--- NOTE | 2016-12-03 07:56 | Progress Note ---
Assessment and Plan - Patient Problems (1) Hypokalemia Current Visit: Yes Status: Acute Plan to address problem: Acute on chronic hypokalemia exacerbated by N & V. Continue IV and PO Potassium supplement. K level remains low. Change IV fluids to 1/2NS with 20 meq KCL. Replete Phos. 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 Continue Potassium bicarbonate. (3) Volume depletion Current Visit: No Status: Acute Plan to address problem: Continue IV fluids. Subjective Date of service: 12/03/16 Interval history: Patient is feeling better. Objective - Vital Signs Vital signs: Vital Signs - 12hr 12/02/16 12/02/16 12/02/16 21:00 22:00 23:52 Temperature 98.3 F 98.5 F Pulse Rate [ 72 Left Radial] Pulse Rate [ 77 Right Radial] Respiratory 18 18 Rate Respiratory 17 Rate [general] Blood Pressure 89/51 [Left Arm] Blood Pressure 95/64 [Right Arm] O2 Sat by Pulse 100 100 Oximetry - General Appearance General appearance: well-developed, well-nourished, appears stated age, other ( no distress) EENT: PERRL, mucous membranes moist, hearing intact, vision intact Neck: no JVD, supple Respiratory: Present: Clear to Ascultation Cardiology: regular, S1S2, no murmurs Gastrointestinal: normoactive bowel sounds, no tenderness, no distended Integumentary: no rash, warm and dry Neurologic: no focal deficit, no asterixis, alert and oriented x3, CN 3-12 intact Musculoskeletal: other (no edema) Psychiatric: mood/affect appropriate, cooperative - Lab 12/02/16 05:04 12/03/16 08:13 Most recent lab results Calcium 7.9 mg/dL (8.4-10.2) L D 12/02/16 05:04 Magnesium 2.5 mg/dL (1.7-2.3) H 12/01/16 01:54
[2016-12-03 09:14] LABS: Anion Gap 15 mmol/L; Blood Urea Nitrogen 8 mg/dL (7-17); Calcium 7.6 mg/dL (8.4-10.2); Carbon Dioxide 15 mmol/L (22-30); Chloride 112.7 mmol/L (98-107); Glucose 90 mg/dL (65-100); Phosphorous 2.1 mg/dL (2.5-4.5); Sodium 140 mmol/L (137-145)
[2016-12-03 09:20] LABS: Potassium 2.7 mmol/L (3.6-5.0)
--- NOTE | 2016-12-03 09:42 | Admit Criteria Form ---
Admission Criteria Documentation: HYPONATREMIA; HYPERNATREMIA; HYPOKALEMIA; HYPERKALEMIA; HYPOCALCEMIA; HYPERCALCEMIA Clinical Indications for Inpatient Care (Place 'X' for any and all applicable criteria): Ongoing inpatient care may be indicated for ANY ONE of the following [G](1)(2)(3 )(5): [ ]I. Hyponatremia with ANY ONE of the following: [ ]a) Sodium less than 130 mEq/L (mmol/L) (new) (6)(22) [ ]b) Sodium less than 135 mEq/L (mmol/L) with ANY ONE of the following: [ ]i) Severe medical etiology requiring inpatient management (eg, heart failure, hypovolemia) [ ]ii) Altered mental status [ ]iii) Seizures [ ]II. Hypernatremia with ANY ONE of the following: [ ]a) Sodium greater than 155 mEq/L (mmol/L) [ ]b) Sodium greater than 150 mEq/L (mmol/L) with ANY ONE of the following: [ ] i) Altered mental status [ ]ii) Seizures [ ]iii) Severe medical etiology (eg, hypovolemia, diabetes insipidus) [ ]iv) Severe weakness [ ]v) Severe medical etiology (eg, hemolysis, infection, drug overdose) [X]III. Hypokalemia with ANY ONE of the following: [ ]a) Potassium less than 2.5 mEq/L (mmol/L) despite outpatient and emergency treatment [X]b) Potassium less than 3.0 mEq/L (mmol/L) with ANY ONE of the following: [ ]i) Weakness [ ]ii) Cardiac abnormality (eg, arrhythmia, conduction disturbance) [ ]iii) Cardiac ischemia [ ]iv) Ileus [ ]v) Ongoing medical cause requiring inpatient management. ( e.g., acute renal wasting, SIADH) [X]vi) Other severe symptoms [ ] IV. Hyperkalemia with ANY ONE of the following: [ ]a) Potassium greater than 6.5 mEq/L (mmol/L) [ ]b) Potassium greater than 5 mEq/L (mmol/L) with ANY ONE of the following: [ ]i) Severe ECG findings [H] [ ]ii) Acute worsening of renal failure (creatinine greater than 2.5 mg/dL (221 micromoles/L) or significant elevation for age and size) [ ] V. Hypocalcemia with ANY ONE of the following: [ ]a) Calcium less than 7 mg/dL (1.75 mmol/L) despite outpatient and emergency treatment(19) [ ]b) Calcium less than 8 mg/dL (2 mmol/L) with significant symptoms or findings; examples include: [ ]i) Cardiac abnormality (eg, arrhythmia or conduction disturbance) [ ]ii) Altered mental status [ ]iii) Seizures [ ]iv) Breathing difficulty [ ]v) Muscle spasms [ ]. Hypercalcemia with ANY ONE of the following: [ ]a) Calcium greater than 14 mg/dL (3.5 mmol/L) [ ]b) Calcium greater than 12 mg/dL (3 mmol/L) with ANY ONE of the following: [ ]i) Significant dehydration or hypovolemia as indicated by ANY ONE of the following(2): [ ]1. Clinically significant dehydration as indicated by ANY ONE of the following: [ ]A. Acute loss of weight from baseline (5% of body weight in adults, 9% in pediatric patients) [ ]B. Hemodynamic instability [ ]C. Acute renal failure [ ]D. Serum sodium greater than 150 mEq/L (mmol/L) [ ]2) Dehydration that is persistent indicated by ALL of the following: [ ]A. Oral rehydration therapy not tolerated or insufficient to adequately correct dehydration [ ]B. Appropriate intravenous treatment (eg, fluids ) does not readily correct dehydration ie, after 12 to 24 hours of treatment) [ ]ii) Significant symptoms or findings; examples include: [ ]1) Altered mental status [ ]2) Cardiac abnormality (eg, arrhythmia, conduction disturbance) [ ]3) Cardiac abnormality (eg, arrhythmia, conduction disturbance) The original [facility] content created by [employer] has been revised. The portions of the content which have been revised are identified through the use of italic text or in bold, and [facility] has neither reviewed nor approved the modified material. All other unmodified content is copyright [facility] [employer] Please see references footnoted in the original [facility] [employer] edition 2016 Admission Criteria Met: Yes
[2016-12-03] MEDS: KLOR-CON PO SCH (09:48)
[2016-12-03] MEDS: LOVENOX SUB-Q SCH (09:48)
[2016-12-03] MEDS ORDERED: K-DUR PO ONE (11:27)
[2016-12-03] MEDS ORDERED: KPHOS 45 MMOL in NACL 0.9% 500 ML 500 ML IV ONE (12:00)
--- NOTE | 2016-12-03 13:18 | Progress Note ---
Assessment and Plan Assessment and plan: 1. Moderate to severe hypokalemia secondary to renal tubular acidosis. Continue to replace with oral and IV potassium supplementation. Nephrology following We'll recheck level in the morning. 2. SLE/rheumatoid arthritis-stable. 3. Renal tubular acidosis. As above. 4. DVT prophylaxis. Lovenox History Interval history: No new issues overnight. Hospitalist Physical - Constitutional Vitals: Temp Pulse Resp BP Pulse Ox 98 F 66 20 96/62 98 12/03/16 08:00 12/03/16 11:35 12/03/16 11:35 12/03/16 08:00 12/03/16 08:00 General appearance: Present: no acute distress, well-nourished - EENT Eyes: Present: PERRL, EOM intact ENT: hearing intact, clear oral mucosa, dentition normal - Neck Neck: Present: supple, normal ROM - Respiratory Respiratory effort: normal Respiratory: bilateral: CTA - Cardiovascular Rhythm: regular Heart Sounds: Present: S1 & S2. Absent: gallop, rub - Extremities Extremities: no ischemia, No edema, Full ROM - Abdominal General gastrointestinal: soft, non-tender, non-distended, normal bowel sounds - Integumentary Integumentary: Present: clear, warm, dry - Neurologic Neurologic: CNII-XII intact, moves all extremities Results - Labs CBC & Chem 7: 12/02/16 05:04 12/03/16 08:13 Labs: Laboratory Last Values WBC 4.4 K/mm3 (4.5-11.0) L 12/02/16 05:04 RBC 3.60 M/mm3 (3.65-5.03) L 12/02/16 05:04 Hgb 10.0 gm/dl (10.1-14.3) L 12/02/16 05:04 Hct 31.0 % (30.3-42.9) D 12/02/16 05:04 MCV 86 fl (79-97) 12/02/16 05:04 MCH 28 pg (28-32) 12/02/16 05:04 MCHC 32 % (30-34) 12/02/16 05:04 RDW 16.1 % (13.2-15.2) H 12/02/16 05:04 Plt Count 277 K/mm3 (140-440) 12/02/16 05:04 Lymph % (Auto) 29.9 % (13.4-35.0) 12/02/16 05:04 Long % (Auto) 9.1 % (0.0-7.3) H 12/02/16 05:04 Eos % (Auto) 1.1 % (0.0-4.3) 12/02/16 05:04 Baso % (Auto) 0.6 % (0.0-1.8) 12/02/16 05:04 Lymph # 1.3 K/mm3 (1.2-5.4) 12/02/16 05:04 Long # 0.4 K/mm3 (0.0-0.8) 12/02/16 05:04 Eos # 0.0 K/mm3 (0.0-0.4) 12/02/16 05:04 Baso # 0.0 K/mm3 (0.0-0.1) 12/02/16 05:04 Seg Neutrophils % 59.3 % (40.0-70.0) 12/02/16 05:04 Seg Neutrophils # 2.6 K/mm3 (1.8-7.7) 12/02/16 05:04 Sodium 140 mmol/L (137-145) 12/03/16 08:13 Potassium 2.7 mmol/L (3.6-5.0) L* 12/03/16 08:13 Chloride 112.7 mmol/L (98-107) H 12/03/16 08:13 Carbon Dioxide 15 mmol/L (22-30) L 12/03/16 08:13 Anion Gap 15 mmol/L 12/03/16 08:13 BUN 8 mg/dL (7-17) 12/03/16 08:13 Creatinine 0.8 mg/dL (0.7-1.2) 12/03/16 08:13 Estimated GFR > 60 ml/min 12/03/16 08:13 BUN/Creatinine Ratio 10.00 % 12/03/16 08:13 Glucose 90 mg/dL (65-100) 12/03/16 08:13 Calcium 7.6 mg/dL (8.4-10.2) L 12/03/16 08:13 Phosphorus 2.1 mg/dL (2.5-4.5) L 12/03/16 08:13 Magnesium 2.5 mg/dL (1.7-2.3) H 12/01/16 01:54 Amylase 124 units/L (27-131) 11/30/16 20:22 Lipase 18 units/L (13-60) 11/30/16 20:22 Urine Color Yellow (Yellow) 11/30/16 22:00 Urine Turbidity Clear (Clear) 11/30/16 22:00 Urine pH 7.0 (5.0-7.0) 11/30/16 22:00 Ur Specific [place] 1.013 (1.003-1.030) 11/30/16 22:00 Urine Protein 100 mg/dl mg/dL (Negative) 11/30/16 22:00 Urine Glucose (UA) Neg mg/dL (Negative) 11/30/16 22:00 Urine Ketones Neg mg/dL (Negative) 11/30/16 22:00 Urine Blood Neg (Negative) 11/30/16 22:00 Urine Nitrite Neg (Negative) 11/30/16 22:00 Urine Bilirubin Neg (Negative) 11/30/16 22:00 Urine Urobilinogen < 2.0 mg/dL (<2.0) 11/30/16 22:00 Ur Leukocyte Esterase Tr (Negative) 11/30/16 22:00 Urine WBC (Auto) 4.0 /HPF (0.0-6.0) 11/30/16 22:00 Urine RBC (Auto) < 1.0 /HPF (0.0-6.0) 11/30/16 22:00 U Epithel Cells (Auto) 1.0 /HPF (0-13.0) 11/30/16 22:00 Urine HCG, Qual Negative (Negative) 11/30/16 22:00
[2016-12-03] MEDS ORDERED: NACL 0.45% 1000 ML 1,000 ML with KCL 20 MEQ IV SCH (15:00)
[2016-12-03] MEDS: K-DUR PO SCH ×2 (16:02→21:34)
[2016-12-03] MEDS: NS 0.45/KCL 20MEQ 20 MEQ/1,000 ML BAG IV SCH (19:16)
[2016-12-04] MEDS: NS 0.45/KCL 20MEQ 20 MEQ/1,000 ML BAG IV SCH (03:42)
[2016-12-04 04:54] VITALS: BP 100/55
[2016-12-04 05:22] LABS: Anion Gap 13 mmol/L; BUN/Creatinine Ratio 13.33; Blood Urea Nitrogen 8 mg/dL (7-17); Calcium 7.7 mg/dL (8.4-10.2); Carbon Dioxide 13 mmol/L (22-30); Chloride 112.6 mmol/L (98-107); Glucose 80 mg/dL (65-100); Magnesium 1.7 mg/dL (1.7-2.3); Potassium 3.5 mmol/L (3.6-5.0); Sodium 135 mmol/L (137-145)
[2016-12-04] MEDS: K-DUR PO SCH ×2 (07:52→13:08)
--- NOTE | 2016-12-04 09:40 | Progress Note ---
Assessment and Plan - Patient Problems (1) Hypokalemia Status: Acute Plan to address problem: Acute on chronic hypokalemia exacerbated by N & V. Potassium level is much better today. Continue PO Potassium supplement. 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 Continue Potassium bicarbonate. (3) Volume depletion Status: Acute Plan to address problem: Improved. Subjective Date of service: 12/04/16 Interval history: Patient is feeling better. Objective - Vital Signs Vital signs: Vital Signs - 12hr 12/03/16 12/04/16 12/04/16 22:00 00:03 00:21 Temperature 98.1 F 98.4 F Pulse Rate [ 66 68 Left Dorsalis Pedis] Pulse Rate [ 65 Left Radial] Respiratory 18 20 Rate Blood Pressure 93/52 98/54 [Right Arm] O2 Sat by Pulse 98 Oximetry 12/04/16 04:00 Temperature 98.3 F Pulse Rate [ 62 Left Dorsalis Pedis] Pulse Rate [ Left Radial] Respiratory 18 Rate Blood Pressure 100/55 [Right Arm] O2 Sat by Pulse Oximetry - General Appearance General appearance: well-developed, well-nourished, other (no distress) EENT: PERRL, mucous membranes moist, hearing intact, vision intact Neck: no JVD, supple Respiratory: Present: Clear to Ascultation Cardiology: regular, S1S2, no murmurs Gastrointestinal: normoactive bowel sounds, no tenderness, no distended, no guarding Integumentary: no rash, warm and dry Neurologic: no focal deficit, no asterixis, alert and oriented x3, CN 3-12 intact Musculoskeletal: other (no distress) Psychiatric: mood/affect appropriate, cooperative - Lab 12/02/16 05:04 12/04/16 04:17 Most recent lab results Calcium 7.7 mg/dL (8.4-10.2) L 12/04/16 04:17 Phosphorus 3.0 mg/dL (2.5-4.5) D 12/04/16 04:17 Magnesium 1.7 mg/dL (1.7-2.3) 12/04/16 04:17
[2016-12-04] MEDS: LOVENOX SUB-Q SCH (10:09)
--- NOTE | 2016-12-04 10:13 | Discharge Summary ---
Providers - Providers Date of Admission: 12/01/16 07:30 Attending physician: TEMO JARRETT MD 12/01/16 09:25 Consult to Physician [CONS] Routine Consulting Provider: CONNIE ARCHER Reason For Exam: rta, hypokalemia Place consult to:: Dr. Archer Notified:: Dr. Archer Phone number called:: [phone] Was contact made?: Yes If yes, spoke with:: Dr. Archer Time called:: 10:23 Comment:: Selina Notified Primary care physician: [employer] Hospitalization Condition: Stable Hospital course: 46-year-old female with a past medical history rheumatoid arthritis, lupus, renal tubular acidosis, previous thyroidectomy, and recurrent hypokalemia presents to the hospital with complaints of nausea, vomiting, and leg and arm cramps. Patient has had nausea and vomiting with poor by mouth tolerance for the past 2 days. She was found to have severe hypokalemia due to RTA, for which she received Supplementation, and here symptoms resolved, and she was sent home with K supplentation and advised to eat K rich foods DC Diagnosis 1. Severe Hypokalemia 2. RTA Disposition: DISCHARGED TO HOME OR SELFCARE Time spent for discharge: 35 minutes Core Measure Documentation - Palliative Care Palliative Care/ Comfort Measures: Not Applicable - Core Measures Any of the following diagnoses?: none Exam - Constitutional Vitals: Temp Pulse Resp BP Pulse Ox 98.3 F 62 18 100/55 98 12/04/16 04:00 12/04/16 04:00 12/04/16 04:00 12/04/16 04:00 12/04/16 00:21 General appearance: Present: no acute distress, well-nourished - EENT Eyes: Present: PERRL ENT: hearing intact, clear oral mucosa - Neck Neck: Present: supple, normal ROM - Respiratory Respiratory effort: normal Respiratory: bilateral: CTA - Cardiovascular Heart Sounds: Present: S1 & S2. Absent: rub, click - Extremities Extremities: pulses symmetrical, No edema Peripheral Pulses: within normal limits - Abdominal General gastrointestinal: Present: soft, non-tender, non-distended, normal bowel sounds Female genitourinary: Present: normal - Integumentary Integumentary: Present: clear, warm, dry - Musculoskeletal Musculoskeletal: gait normal, strength equal bilaterally - Psychiatric Psychiatric: appropriate mood/affect, intact judgment & insight - Neurologic Neurologic: CNII-XII intact, moves all extremities Plan Follow up with: PRIMARY CARE, [Primary Care Provider] - 3-5 Days Prescriptions: Potassium Chloride [K-Dur] 40 meq PO TID #180 tablet
== END 2016-12-04 16:00 | disposition home or self-care (01) | DRG 700 ==
LOC: ED 19:46 → 3A 12-01 07:30
PROVIDERS: ADMIT Hospitalist; ATTEND Internal Medicine
DX: N25.89 Other disorders resulting from impaired renal tubular function (principal); M06.9 Rheumatoid arthritis, unspecified; M32.9 Systemic lupus erythematosus, unspecified; E89.0 Postprocedural hypothyroidism; E86.9 Volume depletion, unspecified
CPT/HCPCS: 36415; 80048; 81001; 81025; 82150; 83690; 83735; 84100; 84132; 85025; 90686; 96361; 96374; 96375; J1650; J2270; J2405; J3480; J7030; J7040

== ENCOUNTER 2017-02-13 11:21 | Emergency (ER) | payer SELFPAY ==
[2017-02-13 11:31] VITALS: BP 103/65
[2017-02-13 11:45] LABS: Basophils % (Auto) 0.5 % (0.0-1.8); Eosinophils % (Auto) 0.8 % (0.0-4.3); Hematocrit 35.4 % (30.3-42.9); Hemoglobin 11.4 gm/dl (10.1-14.3); Mean Corpuscular HGB Conc 32 % (30-34); Mean Corpuscular Hemoglobin 29 pg (28-32); Mean Corpuscular Volume 89 fl (79-97); Platelet Count 352 K/mm3 (140-440); Red Blood Count 3.97 M/mm3 (3.65-5.03); Red Cell Distribution Width 15.6 % (13.2-15.2); White Blood Count 4.8 K/mm3 (4.5-11.0)
[2017-02-13 12:02] LABS: Anion Gap 19 mmol/L; BUN/Creatinine Ratio 15.71; Blood Urea Nitrogen 11 mg/dL (7-17); Carbon Dioxide 18 mmol/L (22-30); Chloride 101.9 mmol/L (98-107); Glucose 106 mg/dL (65-100); Potassium 3.4 mmol/L (3.6-5.0); Sodium 135 mmol/L (137-145)
[2017-02-13 12:56] LABS: Alanine Aminotransferase 9 units/L (7-56); Albumin 3.5 g/dL (3.9-5); Albumin/Globulin Ratio 0.6 %; Alkaline Phosphatase 65 units/L (35-129); Total Protein 9.5 g/dL (6.3-8.2)
[2017-02-13 13:34] LABS: Bilirubin,Direct < 0.2 mg/dL (0-0.2)
--- NOTE | 2017-02-13 17:38 | Emergency Department Report ---
ED General Adult HPI - General Chief complaint: Recheck/Abnormal Lab/Rx Stated complaint: ARM/LEG CRAMPS/LOW POTASSIUM Time Seen by Provider: 02/13/17 17:28 Source: patient Mode of arrival: Ambulatory Limitations: No Limitations - History of Present Illness Initial comments: PT states she has a hx of low potassium and arthritis. PT states this has week she has had intermittent body cramps. PT states the cramps will move between her L and R upper and lower ext. PT states her R shoulder and L knee currently ache. PT states it has been raining and she is not sure if she is having arthritis pain or low potassium. PT states she takes her potassium replacement daily. PT denies injury or trauma. MD Complaint: body aches Onset/Timin -: Gradual, week(s) Location: left, right, upper extremity, lower extremity Severity scale (0 -10): 8 Quality: aching Consistency: intermittent Improves with: none Worsens with: movement Associated Symptoms: denies other symptoms. denies: fever/chills, loss of appetite, malaise, nausea/vomiting Treatments Prior to Arrival: other (otc body pain medication - no relief ) - Related Data Home Medications Medication Instructions Recorded Confirmed Last Taken Levothyroxine 125 mcg PO QDAY 12/01/16 12/01/16 Unknown Previous Rx's Medication Instructions Recorded Last Taken Type Potassium Chloride [K-Dur] 40 meq PO TID #180 tablet 12/04/16 Unknown Rx Acetaminophen/Codeine [Tylenol #3] 1 tab PO Q6H PRN #10 tab 02/13/17 Unknown Rx Allergies Allergy/AdvReac Type Severity Reaction Status Date / Time No Known Allergies Allergy Verified 09/27/16 16:35 ED Review of Systems ROS: Stated complaint: ARM/LEG CRAMPS/LOW POTASSIUM Other details as noted in HPI Comment: All other systems reviewed and negative Constitutional: denies: chills, fever Respiratory: denies: shortness of breath, SOB with exertion, SOB at rest Gastrointestinal: denies: abdominal pain, nausea, vomiting Genitourinary: denies: abnormal menses (pt states her last cycle was normal for her and she ) Musculoskeletal: as per HPI, arthralgia, myalgia. denies: joint swelling ED Past Medical Hx - Past Medical History Hx Congestive Heart Failure: No Hx Diabetes: No Hx Renal Disease: Yes (Renal Tubular Acidosis) Hx Arthritis: Yes (RA) Hx Asthma: No Hx COPD: No Additional medical history: Lupus. Surgical hypothyroidism. 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 - Surgical History Additional Surgical History: thyroidectomy - Social History Smoking Status: Never Smoker Substance Use Type: None - Medications Home Medications: Home Medications Medication Instructions Recorded Confirmed Last Taken Type Levothyroxine 125 mcg PO QDAY 12/01/16 12/01/16 Unknown History Potassium Chloride [K-Dur] 40 meq PO TID #180 tablet 12/04/16 Unknown Rx Acetaminophen/Codeine [Tylenol #3] 1 tab PO Q6H PRN #10 tab 02/13/17 Unknown Rx ED Physical Exam - General Limitations: No Limitations General appearance: alert, in no apparent distress, other (thin ) - Head Head exam: Present: atraumatic, normocephalic - Eye Eye exam: Present: normal appearance. Absent: conjunctival injection - ENT ENT exam: Present: normal exam, normal external ear exam - Neck Neck exam: Present: normal inspection, full ROM. Absent: lymphadenopathy - Respiratory Respiratory exam: Present: normal lung sounds bilaterally. Absent: respiratory distress - Cardiovascular Cardiovascular Exam: Present: regular rate, normal rhythm, normal heart sounds - GI/Abdominal GI/Abdominal exam: Present: soft. Absent: tenderness - Extremities Exam Extremities exam: Present: normal inspection, full ROM, normal capillary refill. Absent: tenderness, joint swelling, calf tenderness - Back Exam Back exam: Present: normal inspection, full ROM. Absent: tenderness, CVA tenderness (R), CVA tenderness (L), muscle spasm, paraspinal tenderness, vertebral tenderness - Neurological Exam Neurological exam: Present: alert, oriented X3, normal gait - Psychiatric Psychiatric exam: Present: normal affect, normal mood - Skin Skin exam: Present: warm, dry, intact, normal color ED Course Vital Signs 02/13/17 11:28 Temperature 98.3 F Pulse Rate 86 Respiratory 16 Rate Blood Pressure 103/65 O2 Sat by Pulse 99 Oximetry - Reevaluation(s) Reevaluation #1: 02/13/17 17:40 PT aware of her lab work results and plan of care. PT has no questions at this time. - Pulse Oximetry Interpretation Digit-Finger Initial Pulse Oximetry Readin Actions Taken: none ED Medical Decision Making - Lab Data Result diagrams: 02/13/17 11:34 02/13/17 11:34 Labs 02/13/17 02/13/17 02/13/17 11:34 11:34 11:34 WBC 4.8 RBC 3.97 Hgb 11.4 Hct 35.4 MCV 89 MCH 29 MCHC 32 RDW 15.6 H Plt Count 352 Lymph % (Auto) 26.0 [place] % (Auto) 7.9 H Eos % (Auto) 0.8 Baso % (Auto) 0.5 Lymph # 1.2 [place] # 0.4 Eos # 0.0 Baso # 0.0 Seg Neutrophils % 64.8 Seg Neutrophils # 3.1 Sodium 135 L Potassium 3.4 L Chloride 101.9 Carbon Dioxide 18 L Anion Gap 19 BUN 11 Creatinine 0.7 Estimated GFR > 60 BUN/Creatinine Ratio 15.71 Glucose 106 H Calcium 9.0 Total Bilirubin Direct Bilirubin AST ALT Alkaline Phosphatase Total Creatine Kinase 31 Total Protein Albumin Albumin/Globulin Ratio 02/13/17 11:34 WBC RBC Hgb Hct MCV MCH MCHC RDW Plt Count Lymph % (Auto) [place] % (Auto) Eos % (Auto) Baso % (Auto) Lymph # [place] # Eos # Baso # Seg Neutrophils % Seg Neutrophils # Sodium Potassium Chloride Carbon Dioxide Anion Gap BUN Creatinine Estimated GFR BUN/Creatinine Ratio Glucose Calcium Total Bilirubin 0.40 Direct Bilirubin < 0.2 AST 16 ALT 9 Alkaline Phosphatase 65 Total Creatine Kinase Total Protein 9.5 H Albumin 3.5 L Albumin/Globulin Ratio 0.6 - Differential Diagnosis hypokalemia, rhadbo, arthritis Critical Care Time: No Critical care attestation.: If time is entered above; I have spent that time in minutes in the direct care of this critically ill patient, excluding procedure time. ED Disposition Clinical Impression: Muscle cramps, Hypokalemia Disposition: DISCHARGED TO HOME OR SELFCARE Is pt being admited?: No Does the pt Need Aspirin: No Condition: Stable Instructions: Osteoarthritis (ED), Hypokalemia (ED) Additional Instructions: Follow up with your PCP in 2-3 days No [address] or ETOH after taking Tylenol #3 Prescriptions: Acetaminophen/Codeine [Tylenol #3] 1 tab PO Q6H PRN #10 tab PRN Reason: Pain , Severe (7-10) Referrals: PRIMARY CARE,MD [Primary Care Provider] - 3-5 Days Time of Disposition: 17:51
[2017-02-13] MEDS ORDERED: K-DUR PO ONE (17:51)
== END 2017-02-13 18:03 | disposition home or self-care (01) ==
LOC: ED 11:21
DX: R25.2 Cramp and spasm (principal); E87.6 Hypokalemia; M19.90 Unspecified osteoarthritis, unspecified site
CPT/HCPCS: 36415; 80048; 80074; 82550; 85025; 99283

== ENCOUNTER 2017-02-27 10:23 | Inpatient (IN) | payer OTHER ==
--- NOTE | 2017-02-27 11:32 | Emergency Department Report ---
Chief Complaint: Abdominal Pain Stated Complaint: VOMITING/LEGS CRAMPING Time Seen by Provider: 02/27/17 11:26 - HPI History of Present Illness: PT c/o R sided abd pain, n and v x a couple of days. pt states she has a hx of low K and her body has been cramping. - ROS Review of Systems: + n/v + abd pain + cramps - Exam Vital Signs: Vital Signs 02/27/17 11:21 Temperature 97.9 F Pulse Rate 89 Respiratory 17 Rate Blood Pressure 120/75 O2 Sat by Pulse 100 Oximetry Physical Exam: PT looks well, non toxic. no acute distress. abd is flat, soft, ruq ttp MSE screening note: Focused history and physical exam performed. Due to findings the following was ordered: labs, us ED Disposition for MSE Condition: Stable Instructions: Abdominal Pain (ED)
[2017-02-27 11:56] LABS: Basophils % (Auto) 0.5 % (0.0-1.8); Eosinophils % (Auto) 0.3 % (0.0-4.3); Hematocrit 37.8 % (30.3-42.9); Hemoglobin 12.3 gm/dl (10.1-14.3); Mean Corpuscular HGB Conc 33 % (30-34); Mean Corpuscular Hemoglobin 28 pg (28-32); Mean Corpuscular Volume 87 fl (79-97); Platelet Count 390 K/mm3 (140-440); Red Blood Count 4.34 M/mm3 (3.65-5.03); Red Cell Distribution Width 14.4 % (13.2-15.2); White Blood Count 5.8 K/mm3 (4.5-11.0)
[2017-02-27 12:07] LABS: Alanine Aminotransferase 8 units/L (7-56); Albumin 3.7 g/dL (3.9-5); Albumin/Globulin Ratio 0.6 %; Alkaline Phosphatase 61 units/L (35-129); Anion Gap 21 mmol/L; BUN/Creatinine Ratio 15.55; Blood Urea Nitrogen 14 mg/dL (7-17); Calcium 9.2 mg/dL (8.4-10.2); Carbon Dioxide 15 mmol/L (22-30); Chloride 101.2 mmol/L (98-107); Glucose 78 mg/dL (65-100); Lipase 19 units/L (13-60); Sodium 135 mmol/L (137-145); Total Protein 10.2 g/dL (6.3-8.2)
[2017-02-27 12:10] LABS: Potassium 2.6 mmol/L (3.6-5.0)
[2017-02-27] MEDS ORDERED: K-DUR PO ONE ×2 (13:08→20:33)
[2017-02-27] MEDS ORDERED: ZOFRAN ODT PO ONE (13:08)
--- NOTE | 2017-02-27 14:47 | Ultrasound Report ---
RIGHT UPPER QUADRANT ULTRASOUND: HISTORY: Right upper quadrant tenderness, nausea and vomiting. Technique: Transabdominal ultrasound imaging with Doppler interrogation. FINDINGS: The gallbladder is sonolucent with no evidence of stones, polyps or wall thickening. The common duct is normal in caliber. The right kidney is echogenic and contains 2 cysts measuring 1.5 cm and 5.7 cm. Images of the liver parenchyma, pancreas, and aorta are within normal limits. No perihepatic ascites. IMPRESSION: Renal parenchymal disease. Right renal cysts.
--- NOTE | 2017-02-27 21:14 | Emergency Department Report ---
ED N/V/D HPI - General Chief complaint: Abdominal Pain Stated complaint: VOMITING/LEGS CRAMPING Time Seen by Provider: 02/27/17 11:26 Source: patient Mode of arrival: Ambulatory Limitations: No Limitations - History of Present Illness Initial comments: 46-year-old female with past medical history of rheumatoid arthritis, lupus, renal tubular acidosis, presenting to the emergency department complaining of nausea and vomiting. Patient states symptoms started approximately 2 days prior. No inciting factors such as exposure to bad food. Patient states nausea and vomiting is food related, nonbloody, non-bilious. Patient admits she has mild abdominal cramping in the right upper quadrant. Patient denies: Fever/chills, bloody stools, black stools, right lower quadrant pain, vaginal discharge. MD complaint: nausea, vomiting -: Gradual, days(s) (2) Description of Vomiting: food contents Associated Abdominal Pain: Yes Location: RUQ, epigastric Radiation: none Severity: mild Quality: cramping Consistency: intermittent Improves with: none - Related Data Home Medications Medication Instructions Recorded Confirmed Last Taken Levothyroxine 125 mcg PO QDAY 12/01/16 12/01/16 Unknown Previous Rx's Medication Instructions Recorded Last Taken Type Potassium Chloride [K-Dur] 40 meq PO TID #180 tablet 12/04/16 Unknown Rx Acetaminophen/Codeine [Tylenol #3] 1 tab PO Q6H PRN #10 tab 02/13/17 Unknown Rx Allergies Allergy/AdvReac Type Severity Reaction Status Date / Time No Known Allergies Allergy Verified 02/27/17 11:19 ED Review of Systems ROS: Stated complaint: VOMITING/LEGS CRAMPING Other details as noted in HPI Constitutional: denies: chills, fever Eyes: denies: eye pain, eye discharge, vision change ENT: denies: ear pain, throat pain Respiratory: denies: cough, shortness of breath, wheezing Cardiovascular: denies: chest pain, palpitations Endocrine: no symptoms reported Gastrointestinal: abdominal pain, nausea, vomiting. denies: diarrhea, constipation Genitourinary: denies: urgency, dysuria, discharge Musculoskeletal: denies: back pain, joint swelling, arthralgia Skin: denies: rash, lesions Neurological: denies: headache, weakness, paresthesias Psychiatric: denies: anxiety, depression Hematological/Lymphatic: denies: easy bleeding, easy bruising ED Past Medical Hx - Past Medical History Hx Congestive Heart Failure: No Hx Diabetes: No Hx Renal Disease: Yes (Renal Tubular Acidosis) Hx Arthritis: Yes (RA) Hx Asthma: No Hx COPD: No Additional medical history: Lupus. Surgical hypothyroidism. 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 - Surgical History Additional Surgical History: thyroidectomy - Social History Smoking Status: Never Smoker Substance Use Type: Prescribed - Medications Home Medications: Home Medications Medication Instructions Recorded Confirmed Last Taken Type Levothyroxine 125 mcg PO QDAY 12/01/16 12/01/16 Unknown History Potassium Chloride [K-Dur] 40 meq PO TID #180 tablet 12/04/16 Unknown Rx Acetaminophen/Codeine [Tylenol #3] 1 tab PO Q6H PRN #10 tab 02/13/17 Unknown Rx ED Physical Exam - General Limitations: No Limitations General appearance: alert, in no apparent distress - Head Head exam: Present: atraumatic, normocephalic - Eye Eye exam: Present: normal appearance - ENT ENT exam: Present: mucous membranes moist - Neck Neck exam: Present: normal inspection - Respiratory Respiratory exam: Present: normal lung sounds bilaterally. Absent: respiratory distress - Cardiovascular Cardiovascular Exam: Present: regular rate, normal rhythm. Absent: systolic murmur, diastolic murmur, rubs, gallop - GI/Abdominal GI/Abdominal exam: Present: soft, normal bowel sounds. Absent: distended, tenderness, guarding, rebound - Extremities Exam Extremities exam: Present: normal inspection - Back Exam Back exam: Present: normal inspection - Neurological Exam Neurological exam: Present: alert, oriented X3 - Psychiatric Psychiatric exam: Present: normal affect, normal mood - Skin Skin exam: Present: warm, dry, intact, normal color. Absent: rash ED Course Vital Signs 02/27/17 02/27/17 11:21 19:39 Temperature 97.9 F 97.8 F Pulse Rate 89 81 Respiratory 17 14 Rate Blood Pressure 120/75 128/55 O2 Sat by Pulse 100 100 Oximetry - Reevaluation(s) Reevaluation #1: 02/27/17 22:16 Patient states symptoms have minimally improved. ED Medical Decision Making - Lab Data Result diagrams: 02/27/17 11:27 02/27/17 18:10 - Radiology Data Radiology results: report reviewed, image reviewed interpreted by me: X-ray abdomen negative for acute findings. No evidence of perforation, or small bowel obstruction. - Medical Decision Making 46 year old female with past medical history of rheumatoid arthritis, lupus, renal tubular acidosis, presenting to the emergency department with nausea vomiting. Patient's workup consistent with hypokalemia, no other acute findings appreciated. I will admit to hospital service for IV hydration and potassium repletion. Patient agrees. Dr. Rothman hospitalist accepting. - Differential Diagnosis gallstones, cholecystitis, bowel obstruction Critical Care Time: No Critical care attestation.: If time is entered above; I have spent that time in minutes in the direct care of this critically ill patient, excluding procedure time. ED Disposition Clinical Impression: Hypokalemic distal renal tubular acidosis, Muscle cramps, Hypokalemia, Nausea & vomiting Disposition: DC-09 OP ADMIT IP TO THIS HOSP Is pt being admited?: Yes Does the pt Need Aspirin: No Condition: Stable Instructions: Abdominal Pain (ED) Referrals: PRIMARY CARE, [Primary Care Provider] - 3-5 Days
[2017-02-27] MEDS ORDERED: REGLAN IV ONE (21:50)
[2017-02-27] MEDS ORDERED: NACL 0.9% 500 ML 500 ML IV ONE (21:50)
[2017-02-27] MEDS: KCL 10MEQ/100ML 10 MEQ/100 ML BAG IV SCH (22:03)
[2017-02-27 22:27] LABS: Bilirubin,Urine NEG (Negative); Blood,Urine NEG (Negative); Ketones,Urine 20 mg/dL (Negative); Leukocyte Esterase,Urine NEG (Negative); Nitrite,Urine NEG (Negative); Urobilinogen,Urine < 2.0 mg/dL (<2.0); WBC,Urine < 1.0 /HPF (0.0-6.0)
--- NOTE | 2017-02-27 23:01 | History and Physical Report ---
History of Present Illness Date of examination: 02/27/17 History of present illness: 46-year-old with a history of rheumatoid, hypothyroidism, renal tubular acidosis comes to the emergency room with complaints of persistent nausea vomiting 4 days, unable to tolerate her oral intake. Patient stated whenever potassium gets low she has nausea vomiting, also complaining of leg cramps Patient denies chest pain, palpitation, shortness of breath, cough, abdominal pain, hematochezia, dysuria, frequency, focal weakness, dysarthria, fever chills , polydipsia polyuria, hot or cold intolerance, easy bruisability, or rash or bleeding from mucosal membrane, rhinorrhea, epistaxis, earache, tinnitus, blurry vision, eye discharge, anxiety, depression. Other review of systems negative PAST SURGICAL HISTORY: Thyroidectomy SOCIAL HISTORY: Denies alcohol, tobacco, drugs FAMILY HISTORY: Hypertension Medications and Allergies Allergies Allergy/AdvReac Type Severity Reaction Status Date / Time No Known Allergies Allergy Verified 02/27/17 11:19 Home Medications Medication Instructions Recorded Confirmed Last Taken Type Levothyroxine 125 mcg PO QDAY 12/01/16 12/01/16 Unknown History Potassium Chloride [K-Dur] 40 meq PO TID #180 tablet 12/04/16 Unknown Rx Acetaminophen/Codeine [Tylenol #3] 1 tab PO Q6H PRN #10 tab 02/13/17 Unknown Rx Active Meds: Active Medications Sodium Chloride (Nacl 0.9% 1000 Ml) 1,000 mls @ 100 mls/hr IV DIRECT LION Exam - Physical Exam Narrative exam: Gen. appearance: Patient lying in bed, no apparent distress HEENT: Normocephalic, atraumatic, pupils equally round and reactive to light, extraocular movement intact, and no sclericterus,. No JVD or thyromegaly or nodule,neck supple, no carotid bruit ,mucous membranes moist, no exudate or erythema Heart: S1, S2, regular rate and rhythm Lungs: Clear to auscultation bilaterally, breathing comfortable Abdomen: Positive bowel sounds, nontender, nondistended, no organomegaly Extremity: No edema, cyanosis, clubbing Skin: No rash, nodules, warm, dry Neuro: Oriented 3, cranial nerves II-12 intact, speech is fluent, motor and sensory intact - Constitutional Vitals: Temp Pulse Resp BP Pulse Ox 97.8 F 81 14 128/55 100 02/27/17 19:39 02/27/17 19:39 02/27/17 19:39 02/27/17 19:39 02/27/17 19:39 Results - Labs CBC & Chem 7: 02/27/17 11:27 02/28/17 14:00 Labs: Abnormal lab results 02/27/17 02/27/17 02/27/17 Range/Units 11:27 11:27 18:10 [place] % (Auto) 9.5 H (0.0-7.3) % Sodium 135 L (137-145) mmol/L Potassium 2.6 L* 2.8 L* (3.6-5.0) mmol/L Carbon Dioxide 15 L (22-30) mmol/L Total Protein 10.2 H (6.3-8.2) g/dL Albumin 3.7 L (3.9-5) g/dL - Imaging and Cardiology EKG: image reviewed Abdominal x-ray: pending US - abdomen: report reviewed Assessment and Plan Severe hypokalemia renal tubular acidosis Nausea vomiting Rheumatoid arthritis Lupus Hypothyroidism Admit to medicine Replete potassium, start antiemetics Continue appropriate outpatient medications, start DVT prophylaxis
[2017-02-28] MEDS ORDERED: NACL 0.9% 1000 ML 1,000 ML ONE (00:29)
[2017-02-28] MEDS ORDERED: KCL 10MEQ/100ML 10 MEQ/100 ML BAG IV ONE ×2 (00:29→10:00)
[2017-02-28] MEDS: KCL 10MEQ/100ML 10 MEQ/100 ML BAG IV SCH ×3 (01:23→04:45)
[2017-02-28] MEDS ORDERED: MILK OF MAGNESIA PO PRN (02:12)
[2017-02-28] MEDS ORDERED: TYLENOL PO PRN (02:12)
[2017-02-28] MEDS ORDERED: DULCOLAX PR PRN (02:12)
[2017-02-28] MEDS ORDERED: ZOFRAN IV PRN (02:12)
[2017-02-28] MEDS: NACL 0.9% 1000 ML 1,000 ML IV SCH (04:45)
[2017-02-28] MEDS: SYNTHROID PO SCH (06:00)
--- NOTE | 2017-02-28 09:24 | XRay Report ---
ABDOMINAL SERIES INDICATION: Vomiting. COMPARISON: 05/02/2015 CT. FINDINGS: Abdominal series, 3 radiographs, demonstrate nonobstructive bowel gas pattern. Approximately 1.6 cm slightly branching calcification in the left upper quadrant, nonspecific and may conceivably be vascular, though none were seen on the prior CT in that location. More inferior, 4.2 cm heterogeneous density projects left paraspinal about L3 on one of the views, though not seen as clearly another view and may possibly be slightly more inferior about L4 level and more diffuse. Small pelvic phleboliths. No pneumatosis or pneumoperitoneum. Accompanying chest radiograph demonstrates normal cardiomediastinal silhouette. Mild bilateral upper lobe scarring versus overlying hair/rachel artifact. Intact bones. CONCLUSION: 1. No acute chest radiographic abnormality or evidence of bowel obstruction. 2. Few nonspecific densities overlie the left hemiabdomen, inadequately characterized. Please correlate. Thank you for the opportunity to participate in this patient's care.
--- NOTE | 2017-02-28 10:52 | Admit Criteria Form ---
Admission Criteria Documentation: HYPONATREMIA; HYPERNATREMIA; HYPOKALEMIA; HYPERKALEMIA; HYPOCALCEMIA; HYPERCALCEMIA Clinical Indications for Inpatient Care (Place 'X' for any and all applicable criteria): Ongoing inpatient care may be indicated for ANY ONE of the following [G](1)(2)(3 )(5): [ ]I. Hyponatremia with ANY ONE of the following: [ ]a) Sodium less than 130 mEq/L (mmol/L) (new) (6)(22) [ ]b) Sodium less than 135 mEq/L (mmol/L) with ANY ONE of the following: [ ]i) Severe medical etiology requiring inpatient management (eg, heart failure, hypovolemia) [ ]ii) Altered mental status [ ]iii) Seizures [ ]II. Hypernatremia with ANY ONE of the following: [ ]a) Sodium greater than 155 mEq/L (mmol/L) [ ]b) Sodium greater than 150 mEq/L (mmol/L) with ANY ONE of the following: [ ] i) Altered mental status [ ]ii) Seizures [ ]iii) Severe medical etiology (eg, hypovolemia, diabetes insipidus) [ ]iv) Severe weakness [ ]v) Severe medical etiology (eg, hemolysis, infection, drug overdose) [X]III. Hypokalemia with ANY ONE of the following: [ ]a) Potassium less than 2.5 mEq/L (mmol/L) despite outpatient and emergency treatment [ X]b) Potassium less than 3.0 mEq/L (mmol/L) with ANY ONE of the following: [ ]i) Weakness [ ]ii) Cardiac abnormality (eg, arrhythmia, conduction disturbance) [ ]iii) Cardiac ischemia [ ]iv) Ileus [ ]v) Ongoing medical cause requiring inpatient management. ( e.g., acute renal wasting, SIADH) [X ]vi) Other severe symptoms [ ] IV. Hyperkalemia with ANY ONE of the following: [ ]a) Potassium greater than 6.5 mEq/L (mmol/L) [ ]b) Potassium greater than 5 mEq/L (mmol/L) with ANY ONE of the following: [ ]i) Severe ECG findings [H] [ ]ii) Acute worsening of renal failure (creatinine greater than 2.5 mg/dL (221 micromoles/L) or significant elevation for age and size) [ ] V. Hypocalcemia with ANY ONE of the following: [ ]a) Calcium less than 7 mg/dL (1.75 mmol/L) despite outpatient and emergency treatment(19) [ ]b) Calcium less than 8 mg/dL (2 mmol/L) with significant symptoms or findings; examples include: [ ]i) Cardiac abnormality (eg, arrhythmia or conduction disturbance) [ ]ii) Altered mental status [ ]iii) Seizures [ ]iv) Breathing difficulty [ ]v) Muscle spasms [ ]. Hypercalcemia with ANY ONE of the following: [ ]a) Calcium greater than 14 mg/dL (3.5 mmol/L) [ ]b) Calcium greater than 12 mg/dL (3 mmol/L) with ANY ONE of the following: [ ]i) Significant dehydration or hypovolemia as indicated by ANY ONE of the following(2): [ ]1. Clinically significant dehydration as indicated by ANY ONE of the following: [ ]A. Acute loss of weight from baseline (5% of body weight in adults, 9% in pediatric patients) [ ]B. Hemodynamic instability [ ]C. Acute renal failure [ ]D. Serum sodium greater than 150 mEq/L (mmol/L) [ ]2) Dehydration that is persistent indicated by ALL of the following: [ ]A. Oral rehydration therapy not tolerated or insufficient to adequately correct dehydration [ ]B. Appropriate intravenous treatment (eg, fluids ) does not readily correct dehydration ie, after 12 to 24 hours of treatment) [ ]ii) Significant symptoms or findings; examples include: [ ]1) Altered mental status [ ]2) Cardiac abnormality (eg, arrhythmia, conduction disturbance) [ ]3) Cardiac abnormality (eg, arrhythmia, conduction disturbance) The original [employer] content created by [employer] has been revised. The portions of the content which have been revised are identified through the use of italic text or in bold, and [facility] has neither reviewed nor approved the modified material. All other unmodified content is copyright [facility] [employer] Please see references footnoted in the original [facility] edition 2016 Admission Criteria Met: Yes
[2017-02-28] MEDS: K-DUR PO SCH ×3 (11:52→22:11)
[2017-02-28] MEDS: LOVENOX SUB-Q SCH (11:52)
--- NOTE | 2017-02-28 12:58 | Consultation ---
History of Present Illness - Reason for Consult Consult date: 02/28/17 hypokalemia - History of Present Illness Patient is a 46-year-old AAf who is well known to our service with history significant for Rheumatoid Arthritis, Lupus, Renal tubular acidosis, Hypothyroid 2/2 thyroidectomy and recurrent Hypokalemia came to the hospital with 3-4 days h/o nausea and vomiting. Due to N & V she was not able to take any of her pills. She has had several similar presentations in the past. She feeling better now. Patient is not followed by any [facility] [employer] at this time. Patient denies diarrhea, fever, melena, rectal bleeding, rash, dizziness or syncope. On admission her potassium was 2.6 and bicarb 15. Her baseline K level is around 3. Past History Past Medical History: hypothyroidism, other (RA, RTA, Recurrent Hypokalemia) Medications and Allergies Allergies Allergy/AdvReac Type Severity Reaction Status Date / Time No Known Allergies Allergy Verified 02/27/17 11:19 Home Medications Medication Instructions Recorded Confirmed Last Taken Type Levothyroxine 125 mcg PO QDAY 12/01/16 12/01/16 Unknown History Potassium Chloride [K-Dur] 40 meq PO TID #180 tablet 12/04/16 Unknown Rx Acetaminophen/Codeine [Tylenol #3] 1 tab PO Q6H PRN #10 tab 02/13/17 Unknown Rx Active Meds: Active Medications Acetaminophen (Tylenol) 650 mg PO Q4H PRN PRN Reason: Pain MILD(1-3)/Fever >100.5/POWERS Bisacodyl (Dulcolax) 10 mg ND QDAY PRN PRN Reason: Constipation unrelieved by MOM Enoxaparin Sodium (Lovenox) 40 mg SUB-Q QDAY [facility] Last Admin: 02/28/17 11:52 Dose: 40 mg Sodium Chloride (Nacl 0.9% 1000 Ml) 1,000 mls @ 100 mls/hr IV DIRECT [facility] Last Admin: 02/28/17 04:45 Dose: 100 mls/hr Levothyroxine Sodium (Synthroid) 125 mcg PO QDAY@0600 [facility] Last Admin: 02/28/17 06:00 Dose: 125 mcg Magnesium Hydroxide (Milk Of Magnesia) 30 ml PO Q4H PRN PRN Reason: Constipation Ondansetron HCl (Zofran) 4 mg IV Q8H PRN PRN Reason: N/V unrelieved by Reglan Potassium Chloride (K-Dur) 40 meq PO Q3H [facility]ION Stop: 02/28/17 13:01 Last Admin: 02/28/17 11:52 Dose: 40 meq Review of Systems Constitutional: no weight loss, no weight gain, no fever, no chills Ears, nose, mouth and throat: no sinus pain, no epistaxis Breasts: deferred Cardiovascular: no chest pain, no orthopnea, no palpitations, no edema, no syncope, no lightheadedness, no shortness of breath, no high blood pressure, no leg edema Respiratory: no cough, no hemoptysis Gastrointestinal: nausea, vomiting, constipation, no abdominal pain, no diarrhea , no melena Genitourinary Female: no dysuria, no hematuria Rectal: no bleeding Musculoskeletal: no neck stiffness, no redness of joints Integumentary: no rash Neurological: no paralysis, no weakness, no seizures, no syncope, no vertigo Psychiatric: no disorientation, no hallucinations Hematologic/Lymphatic: no easy bruising, no easy bleeding Exam - Vital Signs Vital signs: Vital Signs Temp Pulse Resp BP Pulse Ox 97.9 F 89 17 120/75 100 02/27/17 11:21 02/27/17 11:21 02/27/17 11:21 02/27/17 11:21 02/27/17 11:21 - General Appearance General appearance: well-developed, well-nourished, appears stated age, other ( no distress) EENT: ATNC, PERRL, mucous membranes moist, hearing intact, vision intact Neck: Present: neck supple Respiratory: Clear to Ascultation Heart: regular, S1S2, no murmurs Gastrointestinal: Present: normoactive bowel sounds. Absent: tenderness, distended Integumentary: no rash Neurologic: no focal deficit, no asterixis, alert and oriented x3, CN 3-12 intact Musculoskeletal: Present: other (no edema) Psychiatric: mood/affect appropriate, cooperative Results - Lab Results 03/01/17 07:01 03/01/17 07:01 Most recent lab results Calcium 9.2 mg/dL (8.4-10.2) 02/27/17 11:27 Magnesium 2.30 mg/dL (1.7-2.3) 02/27/17 11:27 Assessment and Plan - Patient Problems (1) Hypokalemia Current Visit: Yes Status: Acute Plan to address problem: Acute on chronic hypokalemia exacerbated by persistent N & V. Continue IV and PO Potassium supplement. Monitor K level. (2) Metabolic acidosis Current Visit: No Status: Chronic Plan to address problem: Secondary to RTA. Sodium bicarbonate. (3) Nausea & vomiting Current Visit: Yes Status: Acute Qualifiers: Vomiting type: V Vomiting Intractability: V Plan to address problem: Improved. (4) Hypotension Current Visit: No Status: Chronic Qualifiers: Hypotension type: H Trimester: T Plan to address problem: Chronic and asymptomatic.
[2017-02-28 14:50] LABS: Anion Gap 20 mmol/L; Blood Urea Nitrogen 12 mg/dL (7-17); Calcium 8.7 mg/dL (8.4-10.2); Carbon Dioxide 14 mmol/L (22-30); Chloride 103.5 mmol/L (98-107); Glucose 100 mg/dL (65-100); Sodium 135 mmol/L (137-145)
[2017-02-28 14:55] LABS: Potassium 2.3 mmol/L (3.6-5.0)
--- NOTE | 2017-02-28 15:04 | Event Note ---
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
--- NOTE | 2017-02-28 19:42 | Progress Note ---
Assessment and Plan Assessment and plan: --Acute on chronic Severe hypokalemia As per protocol monitor levels Nephrology evaluation, check magnesium --Intractable nausea and vomiting; antiemetics IV fluids and supportive care --History of rheumatoid arthritis stable --History of lupus stable --Hypothyroidism; continue Synthroid --DVT prophylaxis with Lovenox Plan of care discussed with the patient, follow nephrology evaluation and recommendations History Interval history: Patient seen and evaluated medical records reviewed Admitted with severe hypokalemia and nausea and vomiting Likely better no new complaints Vital signs reviewed stable Hospitalist Physical - Constitutional Vitals: Temp Pulse Resp BP Pulse Ox 98.3 F 70 18 101/58 100 02/28/17 09:30 02/28/17 13:00 02/28/17 09:30 02/28/17 09:30 02/28/17 09:30 General appearance: Present: no acute distress, well-nourished - EENT Eyes: Present: PERRL, EOM intact - Neck Neck: Present: supple, normal ROM - Respiratory Respiratory effort: normal Respiratory: bilateral: diminished, negative: rales, rhonchi, wheezing - Cardiovascular Rhythm: regular Heart Sounds: Present: S1 & S2 - Extremities Extremities: no ischemia, pulses intact, pulses symmetrical Peripheral Pulses: within normal limits - Abdominal General gastrointestinal: soft, non-tender, non-distended, normal bowel sounds - Integumentary Integumentary: Present: clear, warm - Psychiatric Psychiatric: appropriate mood/affect, cooperative - Neurologic Neurologic: CNII-XII intact, moves all extremities Results - Labs CBC & Chem 7: 02/27/17 11:27 02/28/17 14:00 Labs: Laboratory Last Values WBC 5.8 K/mm3 (4.5-11.0) 02/27/17 11:27 RBC 4.34 M/mm3 (3.65-5.03) 02/27/17 11:27 Hgb 12.3 gm/dl (10.1-14.3) 02/27/17 11:27 Hct 37.8 % (30.3-42.9) 02/27/17 11:27 MCV 87 fl (79-97) 02/27/17 11:27 MCH 28 pg (28-32) 02/27/17 11:27 MCHC 33 % (30-34) 02/27/17 11:27 RDW 14.4 % (13.2-15.2) 02/27/17 11:27 Plt Count 390 K/mm3 (140-440) 02/27/17 11:27 Lymph % (Auto) 21.6 % (13.4-35.0) 02/27/17 11:27 [place] % (Auto) 9.5 % (0.0-7.3) H 02/27/17 11:27 Eos % (Auto) 0.3 % (0.0-4.3) 02/27/17 11:27 Baso % (Auto) 0.5 % (0.0-1.8) 02/27/17 11:27 Lymph # 1.2 K/mm3 (1.2-5.4) 02/27/17 11:27 [place] # 0.5 K/mm3 (0.0-0.8) 02/27/17 11:27 Eos # 0.0 K/mm3 (0.0-0.4) 02/27/17 11:27 Baso # 0.0 K/mm3 (0.0-0.1) 02/27/17 11:27 Seg Neutrophils % 68.1 % (40.0-70.0) 02/27/17 11:27 Seg Neutrophils # 3.9 K/mm3 (1.8-7.7) 02/27/17 11:27 Sodium 135 mmol/L (137-145) L 02/28/17 14:00 Potassium 2.3 mmol/L (3.6-5.0) L* 02/28/17 14:00 Chloride 103.5 mmol/L (98-107) 02/28/17 14:00 Carbon Dioxide 14 mmol/L (22-30) L 02/28/17 14:00 Anion Gap 20 mmol/L 02/28/17 14:00 BUN 12 mg/dL (7-17) 02/28/17 14:00 Creatinine 0.8 mg/dL (0.7-1.2) 02/28/17 14:00 Estimated GFR > 60 ml/min 02/28/17 14:00 BUN/Creatinine Ratio 15.00 % 02/28/17 14:00 Glucose 100 mg/dL (65-100) 02/28/17 14:00 Calcium 8.7 mg/dL (8.4-10.2) 02/28/17 14:00 Magnesium 2.30 mg/dL (1.7-2.3) 02/27/17 11:27 Total Bilirubin 0.50 mg/dL (0.1-1.2) 02/27/17 11:27 AST 16 units/L (5-40) 02/27/17 11:27 ALT 8 units/L (7-56) 02/27/17 11:27 Alkaline Phosphatase 61 units/L (35-129) 02/27/17 11:27 Total Protein 10.2 g/dL (6.3-8.2) H 02/27/17 11:27 Albumin 3.7 g/dL (3.9-5) L 02/27/17 11:27 Albumin/Globulin Ratio 0.6 % 02/27/17 11:27 Lipase 19 units/L (13-60) 02/27/17 11:27 HCG, Qual Negative (Negative) 02/27/17 11:27 Urine Color Straw (Yellow) 02/27/17 22:00 Urine Turbidity Clear (Clear) 02/27/17 22:00 Urine pH 7.0 (5.0-7.0) 02/27/17 22:00 Ur Specific [place] 1.010 (1.003-1.030) 02/27/17 22:00 Urine Protein 30 mg/dl mg/dL (Negative) 02/27/17 22:00 Urine Glucose (UA) Neg mg/dL (Negative) 02/27/17 22:00 Urine Ketones 20 mg/dL (Negative) 02/27/17 22:00 Urine Blood Neg (Negative) 02/27/17 22:00 Urine Nitrite Neg (Negative) 02/27/17 22:00 Urine Bilirubin Neg (Negative) 02/27/17 22:00 Urine Urobilinogen < 2.0 mg/dL (<2.0) 02/27/17 22:00 Ur Leukocyte Esterase Neg (Negative) 02/27/17 22:00 Urine WBC (Auto) < 1.0 /HPF (0.0-6.0) 02/27/17 22:00 Urine RBC (Auto) 5.0 /HPF (0.0-6.0) 02/27/17 22:00 Hyaline Casts 1 /LPF 02/27/17 22:00
[2017-03-01] MEDS: NACL 0.9% 1000 ML 1,000 ML IV SCH ×3 (02:58→21:42)
[2017-03-01] MEDS: SYNTHROID PO SCH (06:01)
[2017-03-01 07:39] LABS: Basophils % (Auto) 0.6 % (0.0-1.8); Eosinophils % (Auto) 0.7 % (0.0-4.3); Hematocrit 31.2 % (30.3-42.9); Hemoglobin 10.2 gm/dl (10.1-14.3); Mean Corpuscular HGB Conc 33 % (30-34); Mean Corpuscular Hemoglobin 29 pg (28-32); Mean Corpuscular Volume 88 fl (79-97); Platelet Count 314 K/mm3 (140-440); Red Blood Count 3.55 M/mm3 (3.65-5.03); Red Cell Distribution Width 14.7 % (13.2-15.2)
[2017-03-01 07:53] LABS: Anion Gap 15 mmol/L; BUN/Creatinine Ratio 15.55; Blood Urea Nitrogen 14 mg/dL (7-17); Calcium 8.3 mg/dL (8.4-10.2); Carbon Dioxide 14 mmol/L (22-30); Chloride 110.9 mmol/L (98-107); Glucose 88 mg/dL (65-100); Sodium 137 mmol/L (137-145)
[2017-03-01 08:00] LABS: Potassium 2.9 mmol/L (3.6-5.0)
--- NOTE | 2017-03-01 08:23 | Progress Note ---
Assessment and Plan Assessment and plan: --Acute on chronic Severe hypokalemia Replacement per protocol, nephrology following --Intractable nausea and vomiting; significantly improved antiemetics IV fluids and supportive care --History of rheumatoid arthritis stable --History of lupus stable --Hypothyroidism; continue Synthroid --DVT prophylaxis with Lovenox Follow electrolytes, if reasonable levels can be discharged home tomorrow Plan of care discussed with the patient and nurse History Interval history: Sincerely and evaluated medical records reviewed No new events reported by the nursing staff Patient feels better no new complaints Alert awake oriented 3 not in acute distress vital signs stable Hospitalist Physical - Constitutional Vitals: Temp Pulse Resp BP Pulse Ox 98.4 F 81 20 94/52 100 03/01/17 04:50 03/01/17 04:50 03/01/17 04:50 03/01/17 04:50 03/01/17 04:50 General appearance: Present: no acute distress, well-nourished - EENT Eyes: Present: PERRL, EOM intact - Neck Neck: Present: supple, normal ROM - Respiratory Respiratory effort: normal Respiratory: bilateral: diminished, negative: rales, rhonchi, wheezing - Cardiovascular Rhythm: regular Heart Sounds: Present: S1 & S2 - Extremities Extremities: no ischemia, pulses intact, pulses symmetrical Peripheral Pulses: within normal limits - Abdominal General gastrointestinal: soft, non-tender, non-distended, normal bowel sounds - Integumentary Integumentary: Present: clear, warm - Psychiatric Psychiatric: appropriate mood/affect, cooperative - Neurologic Neurologic: CNII-XII intact, moves all extremities Results - Labs CBC & Chem 7: 03/01/17 07:01 03/01/17 13:52 Labs: Laboratory Last Values WBC 5.0 K/mm3 (4.5-11.0) 03/01/17 07:01 RBC 3.55 M/mm3 (3.65-5.03) L 03/01/17 07:01 Hgb 10.2 gm/dl (10.1-14.3) 03/01/17 07:01 Hct 37.8 % (30.3-42.9) 02/27/17 11:27 MCV 88 fl (79-97) 03/01/17 07:01 MCH 29 pg (28-32) 03/01/17 07:01 MCHC 33 % (30-34) 03/01/17 07:01 RDW 14.7 % (13.2-15.2) 03/01/17 07:01 Plt Count 314 K/mm3 (140-440) 03/01/17 07:01 Lymph % (Auto) 31.3 % (13.4-35.0) 03/01/17 07:01 [place] % (Auto) 9.1 % (0.0-7.3) H 03/01/17 07:01 Eos % (Auto) 0.7 % (0.0-4.3) 03/01/17 07:01 Baso % (Auto) 0.6 % (0.0-1.8) 03/01/17 07:01 Lymph # 1.6 K/mm3 (1.2-5.4) 03/01/17 07:01 [place] # 0.4 K/mm3 (0.0-0.8) 03/01/17 07:01 Eos # 0.0 K/mm3 (0.0-0.4) 03/01/17 07:01 Baso # 0.0 K/mm3 (0.0-0.1) 03/01/17 07:01 Seg Neutrophils % 58.3 % (40.0-70.0) 03/01/17 07:01 Seg Neutrophils # 2.9 K/mm3 (1.8-7.7) 03/01/17 07:01 Sodium 137 mmol/L (137-145) 03/01/17 07:01 Potassium 2.9 mmol/L (3.6-5.0) L* D 03/01/17 07:01 Chloride 110.9 mmol/L (98-107) H 03/01/17 07:01 Carbon Dioxide 14 mmol/L (22-30) L 03/01/17 07:01 Anion Gap 15 mmol/L 03/01/17 07:01 BUN 14 mg/dL (7-17) 03/01/17 07:01 Creatinine 0.9 mg/dL (0.7-1.2) 03/01/17 07:01 Estimated GFR > 60 ml/min 03/01/17 07:01 BUN/Creatinine Ratio 15.55 % 03/01/17 07:01 Glucose 88 mg/dL (65-100) 03/01/17 07:01 Calcium 8.3 mg/dL (8.4-10.2) L 03/01/17 07:01 Phosphorus 2.70 mg/dL (2.5-4.5) 03/01/17 07:01 Magnesium 2.30 mg/dL (1.7-2.3) 02/27/17 11:27 Total Bilirubin 0.50 mg/dL (0.1-1.2) 02/27/17 11:27 AST 16 units/L (5-40) 02/27/17 11:27 ALT 8 units/L (7-56) 02/27/17 11:27 Alkaline Phosphatase 61 units/L (35-129) 02/27/17 11:27 Total Protein 10.2 g/dL (6.3-8.2) H 02/27/17 11:27 Albumin 3.7 g/dL (3.9-5) L 02/27/17 11:27 Albumin/Globulin Ratio 0.6 % 02/27/17 11:27 Lipase 19 units/L (13-60) 02/27/17 11:27 HCG, Qual Negative (Negative) 02/27/17 11:27 Urine Color Straw (Yellow) 02/27/17 22:00 Urine Turbidity Clear (Clear) 02/27/17 22:00 Urine pH 7.0 (5.0-7.0) 02/27/17 22:00 Ur Specific [place] 1.010 (1.003-1.030) 02/27/17 22:00 Urine Protein 30 mg/dl mg/dL (Negative) 02/27/17 22:00 Urine Glucose (UA) Neg mg/dL (Negative) 02/27/17 22:00 Urine Ketones 20 mg/dL (Negative) 02/27/17 22:00 Urine Blood Neg (Negative) 02/27/17 22:00 Urine Nitrite Neg (Negative) 02/27/17 22:00 Urine Bilirubin Neg (Negative) 02/27/17 22:00 Urine Urobilinogen < 2.0 mg/dL (<2.0) 02/27/17 22:00 Ur Leukocyte Esterase Neg (Negative) 02/27/17 22:00 Urine WBC (Auto) < 1.0 /HPF (0.0-6.0) 02/27/17 22:00 Urine RBC (Auto) 5.0 /HPF (0.0-6.0) 02/27/17 22:00 Hyaline Casts 1 /LPF 02/27/17 22:00
--- NOTE | 2017-03-01 08:57 | Progress Note ---
Assessment and Plan - Patient Problems (1) Hypokalemia Current Visit: Yes Status: Acute Plan to address problem: Acute on chronic hypokalemia exacerbated by persistent N & V. K level is better. Continue Potassium supplement. Monitor K level. (2) Metabolic acidosis Current Visit: No Status: Chronic Plan to address problem: Secondary to RTA. Sodium bicarbonate. (3) Nausea & vomiting Current Visit: Yes Status: Acute Qualifiers: Vomiting type: V Vomiting Intractability: V Plan to address problem: Improved. (4) Hypotension Current Visit: No Status: Chronic Qualifiers: Hypotension type: H Trimester: T Plan to address problem: Chronic and asymptomatic. Subjective Date of service: 03/01/17 Interval history: Patient is feeling better. Objective - Vital Signs Vital signs: Vital Signs - 12hr 02/28/17 02/28/17 03/01/17 22:00 22:02 01:14 Temperature 98.5 F 97.9 F Pulse Rate [ 81 84 Left] Respiratory 18 20 20 Rate Blood Pressure 90/50 96/51 [Left Arm] O2 Sat by Pulse 100 99 Oximetry 03/01/17 03/01/17 03/01/17 02:39 04:50 07:20 Temperature 98.4 F 98.5 F Pulse Rate [ 81 74 Left] Respiratory 20 18 Rate Blood Pressure 94/52 88/50 [Left Arm] O2 Sat by Pulse 96 100 100 Oximetry - General Appearance General appearance: well-developed, well-nourished, appears stated age, other ( no distress) EENT: ATNC, PERRL, mucous membranes moist, hearing intact, vision intact Neck: supple Respiratory: Present: Clear to Ascultation Cardiology: regular, S1S2, no murmurs Gastrointestinal: normoactive bowel sounds, no tenderness, no distended Integumentary: no rash Neurologic: no focal deficit, no asterixis, alert and oriented x3, CN 3-12 intact Musculoskeletal: other (no edema) Psychiatric: mood/affect appropriate, cooperative - Lab 03/01/17 07:01 03/01/17 07:01 Most recent lab results Calcium 8.3 mg/dL (8.4-10.2) L 03/01/17 07:01 Phosphorus 2.70 mg/dL (2.5-4.5) 03/01/17 07:01 Magnesium 2.30 mg/dL (1.7-2.3) 02/27/17 11:27
[2017-03-01] MEDS: SODIUM BICARBONATE PO SCH ×2 (10:30→21:43)
[2017-03-01] MEDS: K-DUR PO SCH ×3 (10:30→21:43)
[2017-03-01] MEDS: LOVENOX SUB-Q SCH (11:20)
[2017-03-01] MEDS ORDERED: K-DUR PO SCH (18:00)
[2017-03-02] MEDS: SYNTHROID PO SCH (06:41)
[2017-03-02] MEDS: SODIUM BICARBONATE PO SCH ×3 (08:39→13:00)
[2017-03-02] MEDS: K-DUR PO SCH ×5 (08:40→15:01)
[2017-03-02 09:25] LABS: Anion Gap 13 mmol/L; BUN/Creatinine Ratio 11.42; Blood Urea Nitrogen 8 mg/dL (7-17); Calcium 8.1 mg/dL (8.4-10.2); Carbon Dioxide 15 mmol/L (22-30); Chloride 114.1 mmol/L (98-107); Glucose 85 mg/dL (65-100); Sodium 139 mmol/L (137-145)
[2017-03-02 09:30] LABS: Potassium 2.9 mmol/L (3.6-5.0)
--- NOTE | 2017-03-02 10:04 | Progress Note ---
Hospitalist Physical - Constitutional Vitals: Temp Pulse Resp BP Pulse Ox 98.2 F 72 20 93/48 100 03/02/17 06:20 03/02/17 06:20 03/02/17 06:20 03/02/17 06:20 03/02/17 06:20 General appearance: Present: no acute distress, well-nourished Results - Labs CBC & Chem 7: 03/01/17 07:01 03/02/17 08:46 Labs: Laboratory Last Values WBC 5.0 K/mm3 (4.5-11.0) 03/01/17 07:01 RBC 3.55 M/mm3 (3.65-5.03) L 03/01/17 07:01 Hgb 10.2 gm/dl (10.1-14.3) 03/01/17 07:01 Hct 31.2 % (30.3-42.9) D 03/01/17 07:01 MCV 88 fl (79-97) 03/01/17 07:01 MCH 29 pg (28-32) 03/01/17 07:01 MCHC 33 % (30-34) 03/01/17 07:01 RDW 14.7 % (13.2-15.2) 03/01/17 07:01 Plt Count 314 K/mm3 (140-440) 03/01/17 07:01 Lymph % (Auto) 31.3 % (13.4-35.0) 03/01/17 07:01 [place] % (Auto) 9.1 % (0.0-7.3) H 03/01/17 07:01 Eos % (Auto) 0.7 % (0.0-4.3) 03/01/17 07:01 Baso % (Auto) 0.6 % (0.0-1.8) 03/01/17 07:01 Lymph # 1.6 K/mm3 (1.2-5.4) 03/01/17 07:01 [place] # 0.4 K/mm3 (0.0-0.8) 03/01/17 07:01 Eos # 0.0 K/mm3 (0.0-0.4) 03/01/17 07:01 Baso # 0.0 K/mm3 (0.0-0.1) 03/01/17 07:01 Seg Neutrophils % 58.3 % (40.0-70.0) 03/01/17 07:01 Seg Neutrophils # 2.9 K/mm3 (1.8-7.7) 03/01/17 07:01 Sodium 139 mmol/L (137-145) 03/02/17 08:46 Potassium 2.9 mmol/L (3.6-5.0) L* 03/02/17 08:46 Chloride 114.1 mmol/L (98-107) H 03/02/17 08:46 Carbon Dioxide 15 mmol/L (22-30) L 03/02/17 08:46 Anion Gap 13 mmol/L 03/02/17 08:46 BUN 8 mg/dL (7-17) 03/02/17 08:46 Creatinine 0.7 mg/dL (0.7-1.2) 03/02/17 08:46 Estimated GFR > 60 ml/min 03/02/17 08:46 BUN/Creatinine Ratio 11.42 % 03/02/17 08:46 Glucose 85 mg/dL (65-100) 03/02/17 08:46 Calcium 8.1 mg/dL (8.4-10.2) L 03/02/17 08:46 Phosphorus 2.70 mg/dL (2.5-4.5) 03/01/17 07:01 Magnesium 2.30 mg/dL (1.7-2.3) 02/27/17 11:27 Total Bilirubin 0.50 mg/dL (0.1-1.2) 02/27/17 11:27 AST 16 units/L (5-40) 02/27/17 11:27 ALT 8 units/L (7-56) 02/27/17 11:27 Alkaline Phosphatase 61 units/L (35-129) 02/27/17 11:27 Total Protein 10.2 g/dL (6.3-8.2) H 02/27/17 11:27 Albumin 3.7 g/dL (3.9-5) L 02/27/17 11:27 Albumin/Globulin Ratio 0.6 % 02/27/17 11:27 Lipase 19 units/L (13-60) 02/27/17 11:27 HCG, Qual Negative (Negative) 02/27/17 11:27 Urine Color Straw (Yellow) 02/27/17 22:00 Urine Turbidity Clear (Clear) 02/27/17 22:00 Urine pH 7.0 (5.0-7.0) 02/27/17 22:00 Ur Specific [place] 1.010 (1.003-1.030) 02/27/17 22:00 Urine Protein 30 mg/dl mg/dL (Negative) 02/27/17 22:00 Urine Glucose (UA) Neg mg/dL (Negative) 02/27/17 22:00 Urine Ketones 20 mg/dL (Negative) 02/27/17 22:00 Urine Blood Neg (Negative) 02/27/17 22:00 Urine Nitrite Neg (Negative) 02/27/17 22:00 Urine Bilirubin Neg (Negative) 02/27/17 22:00 Urine Urobilinogen < 2.0 mg/dL (<2.0) 02/27/17 22:00 Ur Leukocyte Esterase Neg (Negative) 02/27/17 22:00 Urine WBC (Auto) < 1.0 /HPF (0.0-6.0) 02/27/17 22:00 Urine RBC (Auto) 5.0 /HPF (0.0-6.0) 02/27/17 22:00 Hyaline Casts 1 /LPF 02/27/17 22:00
[2017-03-02] MEDS: LOVENOX SUB-Q SCH (10:36)
[2017-03-02 10:48] VITALS: BP 104/53
--- NOTE | 2017-03-02 11:01 | Discharge Summary ---
Providers - Providers Date of Admission: 02/27/17 23:00 Date of discharge: 03/02/17 Attending physician: ALFIE MUNZO 02/28/17 09:12 Consult to Physician [CONS] Routine Consulting Provider: CONNIE ARCHER Reason For Exam: chronic hypokalemia Place consult to:: GIANNI Notified:: GIANNI Primary care physician: [facility] TECHNICIAN Hospitalization Reason for admission: intractable nausea vomiting/leg cramps/severe hypokalemia Condition: Stable Pertinent studies: Chest x-ray and abdomen; No acute chest abnormality noted No evidence of obstruction A few nonspecific densities overlying the left hemiabdomen Abdominal ultrasound; renal parenchymal disease right renal cyst Hospital course: Final diagnosis ; Acute on chronic severe hypokalemia Intractable nausea vomiting Renal Tubular acidosis Rheumatoid arthritis h/o Lupus Hypothyroidism Metabolic acidosis Brief hypotension 46-year-old -[place] female patient with multiple medical problems as mentioned above including renal tubular acidosis with chronic hypokalemia on replacement therapy was admitted through emergency room with persistent nausea vomiting unable to tolerate oral nutrition and severe leg cramps Was initially evaluated and noted to have severe hypokalemia Admitted to the hospital evaluated by change consultant, the placement therapy was done per protocol Patient had persistent hypokalemia ranging between 2.7-2.9, corrected with multiple doses of oral as well as IV potassium chloride Symptoms slightly improved, evaluated by change consultant medications were optimized Today she is comfortable in bed alert awake oriented 3, no new complaints Potassium levels at 3.6, vital signs are stable, [id number] evaluation physical examination done by me prior to discharge is unremarkable as detailed below Patient advised to take foods rich in potassium Disposition: DC-01 TO HOME OR SELFCARE Time spent for discharge: 32 min Core Measure Documentation - Palliative Care Palliative Care/ Comfort Measures: Not Applicable - Core Measures Any of the following diagnoses?: none Exam - Constitutional Vitals: Temp Pulse Resp BP Pulse Ox 98.6 F 72 14 104/53 100 03/02/17 10:48 03/02/17 06:20 03/02/17 10:48 03/02/17 10:48 03/02/17 10:48 General appearance: Present: no acute distress, well-nourished - EENT Eyes: Present: PERRL, EOM intact - Neck Neck: Present: supple, normal ROM - Respiratory Respiratory effort: normal Respiratory: negative: rales, rhonchi, wheezing - Cardiovascular Rhythm: regular Heart Sounds: Present: S1 & S2 - Extremities Extremities: no ischemia, pulses intact, pulses symmetrical Peripheral Pulses: within normal limits - Abdominal General gastrointestinal: Present: soft, non-tender, non-distended, normal bowel sounds - Integumentary Integumentary: Present: clear, warm - Musculoskeletal Musculoskeletal: strength equal bilaterally, generalized weakness - Psychiatric Psychiatric: appropriate mood/affect, cooperative - Neurologic Neurologic: CNII-XII intact, moves all extremities Plan Activity: no restrictions Diet: regular, other (Foods high in potassium) Follow up with: PRIMARY CAREMD [Primary Care Provider] - 3-5 Days CONNIE ARCHER MD [Staff Physician] - 7 Days Prescriptions: Acetaminophen/Codeine [Tylenol /Codeine # 3 tab] 1 tab PO Q6H PRN #10 tab PRN Reason: Pain , Severe (7-10) Levothyroxine 125 mcg PO QDAY #30 Potassium Chloride [K-Dur] 40 meq PO TID #180 tablet
--- NOTE | 2017-03-02 12:32 | Progress Note ---
Assessment and Plan - Patient Problems (1) Hypokalemia Current Visit: Yes Status: Acute Plan to address problem: Acute on chronic hypokalemia exacerbated by persistent N & V. K level is better and stable. Potassium level is at her baseline. She will be receiving 80 meq of PO and 20 meq IV potassium today. Patient was advised to take the potassium supplement at home as prescribed. Patient can go home today after the above dose of potassium. Follow up with me next week. (2) Metabolic acidosis Current Visit: No Status: Chronic Plan to address problem: Secondary to RTA. Sodium bicarbonate. (3) Nausea & vomiting Current Visit: Yes Status: Acute Qualifiers: Vomiting type: V Vomiting Intractability: V Plan to address problem: Improved. (4) Hypotension Current Visit: No Status: Chronic Qualifiers: Hypotension type: H Trimester: T Plan to address problem: Chronic and asymptomatic. (5) Noncompliance Current Visit: No Status: Chronic Plan to address problem: Compliance encouraged. Subjective Date of service: 03/02/17 Interval history: Patient is feeling better. Objective - Vital Signs Vital signs: Vital Signs - 12hr 03/02/17 03/02/17 03/02/17 01:17 02:53 06:20 Temperature 98.2 F 98.2 F Pulse Rate 70 Pulse Rate [ 77 72 Left] Respiratory 20 20 Rate Blood Pressure 89/50 93/48 [Left Arm] Blood Pressure [Right Radial Artery] O2 Sat by Pulse 100 100 Oximetry 03/02/17 10:48 Temperature 98.6 F Pulse Rate Pulse Rate [ Left] Respiratory 14 Rate Blood Pressure [Left Arm] Blood Pressure 104/53 [Right Radial Artery] O2 Sat by Pulse 100 Oximetry - General Appearance General appearance: well-developed, well-nourished, appears stated age, other ( no distress) EENT: ATNC, PERRL, mucous membranes moist, hearing intact, vision intact Neck: supple Respiratory: Present: Clear to Ascultation Cardiology: regular, S1S2, no murmurs Gastrointestinal: normoactive bowel sounds, no tenderness, no distended, no obese Integumentary: no rash Neurologic: no focal deficit, no asterixis, alert and oriented x3, CN 3-12 intact Musculoskeletal: other (no edema) Psychiatric: mood/affect appropriate, cooperative - Lab 03/01/17 07:01 03/02/17 08:46 Most recent lab results Calcium 8.1 mg/dL (8.4-10.2) L 03/02/17 08:46 Phosphorus 2.70 mg/dL (2.5-4.5) 03/01/17 07:01 Magnesium 2.30 mg/dL (1.7-2.3) 02/27/17 11:27
[2017-03-02] MEDS: KCL 10MEQ/100ML 10 MEQ/100 ML BAG IV SCH ×2 (14:05→15:01)
[2017-03-02] MEDS ORDERED: NACL 0.9% 250ML 250 ML ONE (14:41)
== END 2017-03-02 18:00 | disposition home or self-care (01) | DRG 641 ==
LOC: ED 10:23 → 4A 23:00
PROVIDERS: ADMIT Internal Medicine; ATTEND Internal Medicine
DX: E87.6 Hypokalemia (principal); M06.9 Rheumatoid arthritis, unspecified; E03.9 Hypothyroidism, unspecified; M32.9 Systemic lupus erythematosus, unspecified; E87.2 Acidosis; I95.89 Other hypotension; R11.2 Nausea with vomiting, unspecified; N25.89 Other disorders resulting from impaired renal tubular function; Z90.89 Acquired absence of other organs; Z91.19 Patient's noncompliance with other medical treatment and regimen; Z82.49 Family history of ischemic heart disease and other diseases of the circulatory system
CPT/HCPCS: 36415; 74022; 76705; 80048; 80053; 81001; 83690; 83735; 84100; 84132; 84703; 85025; 96361; 96374; 99285; J1650; J2765; J3480; J7030; J7040; J7050; Q0162

== ENCOUNTER 2017-04-25 04:26 | Inpatient (IN) | payer OTHER ==
[2017-04-25 05:12] LABS: Basophils % (Auto) 0.3 % (0.0-1.8); Eosinophils % (Auto) 0.6 % (0.0-4.3); Hematocrit 36.5 % (30.3-42.9); Hemoglobin 12.2 gm/dl (10.1-14.3); Mean Corpuscular HGB Conc 33 % (30-34); Mean Corpuscular Hemoglobin 30 pg (28-32); Mean Corpuscular Volume 89 fl (79-97); Platelet Count 376 K/mm3 (140-440); Red Blood Count 4.11 M/mm3 (3.65-5.03); Red Cell Distribution Width 18.5 % (13.2-15.2); White Blood Count 8.3 K/mm3 (4.5-11.0)
[2017-04-25 05:25] LABS: Erythrocyte Sedimentation Rate 74 mm/Hr (0-20)
[2017-04-25 05:28] LABS: Creatine Kinase MB 3.8 ng/mL (0.0-4.0)
[2017-04-25 05:29] LABS: Blood Urea Nitrogen 15 mg/dL (7-17); Calcium 9.7 mg/dL (8.4-10.2); Chloride 106.7 mmol/L (98-107); Creatine Kinase 197 units/L (30-135); Glucose 122 mg/dL (65-100); Sodium 135 mmol/L (137-145)
[2017-04-25 05:47] LABS: Anion Gap 22 mmol/L; Carbon Dioxide 8 mmol/L (22-30); Potassium 1.7 mmol/L (3.6-5.0)
[2017-04-25] MEDS ORDERED: K-DUR PO ONE (05:58)
--- NOTE | 2017-04-25 06:20 | Emergency Department Report ---
- General Chief complaint: Extremity Problem,Nontraumatic Stated complaint: LEG,NECK, AND ARM CRAMPING Time Seen by Provider: 04/25/17 06:04 Source: patient, EMS Mode of arrival: Ambulatory Limitations: No Limitations - History of Present Illness Initial comments: 46 yo female the past medical history rheumatoid arthritis, tubal acidosis, surgical hypothyroidism, and lupus presents to the hospital with complaints of vomiting since last night and muscle cramps 2 days. Positive vomiting and achy abdominal pain secondary to vomiting. Patient denies fever, diarrhea, or dysuria. She has been compliant with her potassium 40 mEq 3 times a day. Patient has had previous admissions secondary to same. She was recently admitted here in February. Dr. Hughes seamless tube drawer consulted. Patient has not been able to see a seamless tube drawer in outpatient due to insurance issues. Severity scale (0 -10): 3 - Related Data Previous Rx's Medication Instructions Recorded Last Taken Type Acetaminophen/Codeine [Tylenol 1 tab PO Q6H PRN #10 tab 03/02/17 Unknown Rx /Codeine # 3 tab] Levothyroxine 125 mcg PO QDAY #30 03/02/17 Unknown Rx Potassium Chloride [K-Dur] 40 meq PO TID #180 tablet 03/02/17 Unknown Rx Allergies Allergy/AdvReac Type Severity Reaction Status Date / Time No Known Allergies Allergy Verified 02/27/17 11:19 ED Review of Systems ROS: Stated complaint: LEG,NECK, AND ARM CRAMPING Other details as noted in HPI Comment: All other systems reviewed and negative Other: Constitutional: No fevers chills Eyes: No eye pain visual changes ENT: No ear pain or throat pain Neck: Denies pain Respiratory: Denies cough wheezing shortness of breath Cardiovascular: Denies chest pain, palpitations, syncope GI: As per HPI : Denies dysuria Musculoskeletal: As per HPI Skin: Denies rash, lesions, erythema Neurologic: Denies headache, numbness, weakness Psychiatric: Denies suicidal ideation, hallucinations ED Past Medical Hx - Past Medical History Previous Medical History?: Yes Hx Congestive Heart Failure: No Hx Diabetes: No Hx Renal Disease: Yes (Renal Tubular Acidosis) Hx Arthritis: Yes (RA) Hx Asthma: No Hx COPD: No Additional medical history: Lupus. Surgical hypothyroidism. 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 - Surgical History Past Surgical History?: Yes Additional Surgical History: thyroidectomy - Social History Smoking Status: Never Smoker Substance Use Type: None - Medications Home Medications: Home Medications Medication Instructions Recorded Confirmed Last Taken Type Acetaminophen/Codeine [Tylenol 1 tab PO Q6H PRN #10 tab 03/02/17 Unknown Rx /Codeine # 3 tab] Levothyroxine 125 mcg PO QDAY #30 03/02/17 Unknown Rx Potassium Chloride [K-Dur] 40 meq PO TID #180 tablet 03/02/17 Unknown Rx ED Physical Exam - General Limitations: No Limitations - Other Other exam information: General: No limitations, patient is alert in no acute distress Head exam: Atraumatic, normocephalic Eyes exam: Normal appearance ENT: Moist mucous membrane, normal oropharynx Neck exam: Normal inspection, full range of motion, no meningismus nontender Respiratory exam: Clear to auscultation bilateral, no wheezes, rales, crackles Cardiovascular: Normal rate and rhythm, normal heart sounds Abdomen: Soft, nondistended, mild generalized tenderness, with normal bowel sounds, no rebound, or guarding Extremity: Full range of motion normal inspection no deformity Back: Normal Inspection, full range of motion, no tenderness Neurologic: Alert, oriented x3, cranial nerves intact, no motor or sensory deficit Psychiatric: normal affect, normal mood Skin: Warm, dry, intact ED Course Vital Signs 04/25/17 04:26 Temperature 98.6 F Pulse Rate 92 H Respiratory 20 Rate Blood Pressure 116/78 [Right] O2 Sat by Pulse 99 Oximetry - Reevaluation(s) Reevaluation #1: 04/25/17 06:33 By mouth potassium, IV potassium, Zofran, and normal saline ordered - Consultations Consultation #1: 04/25/17 06:31 Dr Hughes has agreed to consult on the pt ED Medical Decision Making - Lab Data Result diagrams: 04/25/17 04:40 04/25/17 04:40 Lab Results 04/25/17 04/25/17 04/25/17 Range/Units 04:40 04:40 04:40 WBC 8.3 (4.5-11.0) K/mm3 RBC 4.11 (3.65-5.03) M/mm3 Hgb 12.2 (10.1-14.3) gm/dl Hct 36.5 (30.3-42.9) % MCV 89 (79-97) fl MCH 30 (28-32) pg MCHC 33 (30-34) % RDW 18.5 H (13.2-15.2) % Plt Count 376 (140-440) K/mm3 Lymph % (Auto) 24.9 (13.4-35.0) % [place] % (Auto) 5.5 (0.0-7.3) % Eos % (Auto) 0.6 (0.0-4.3) % Baso % (Auto) 0.3 (0.0-1.8) % Lymph # 2.1 (1.2-5.4) K/mm3 [place] # 0.5 (0.0-0.8) K/mm3 Eos # 0.1 (0.0-0.4) K/mm3 Baso # 0.0 (0.0-0.1) K/mm3 Seg Neutrophils % 68.7 (40.0-70.0) % Seg Neutrophils # 5.7 (1.8-7.7) K/mm3 ESR 74 (0-20) mm/Hr Sodium 135 L (137-145) mmol/L Potassium 1.7 L* (3.6-5.0) mmol/L Chloride 106.7 (98-107) mmol/L Carbon Dioxide 8 L* (22-30) mmol/L Anion Gap 22 mmol/L BUN 15 (7-17) mg/dL Creatinine 1.0 (0.7-1.2) mg/dL Estimated GFR > 60 ml/min BUN/Creatinine Ratio 15.00 % Glucose 122 H (65-100) mg/dL Lactic Acid 1.30 (0.7-2.0) mmol/L Calcium 9.7 (8.4-10.2) mg/dL Magnesium 2.20 (1.7-2.3) mg/dL Total Creatine Kinase 197 H (30-135) units/L CK-MB (CK-2) 3.8 (0.0-4.0) ng/mL CK-MB (CK-2) Rel Index 1.9 (0-4) C-Reactive Protein 1.00 (0.00-1.30) mg/dL NT-Pro-B Natriuret Pep 72.76 (0-450) pg/mL HCG, Qual (Negative) 08/03/17 Range/Units 04:40 WBC (4.5-11.0) K/mm3 RBC (3.65-5.03) M/mm3 Hgb (10.1-14.3) gm/dl Hct (30.3-42.9) % MCV (79-97) fl MCH (28-32) pg MCHC (30-34) % RDW (13.2-15.2) % Plt Count (140-440) K/mm3 Lymph % (Auto) (13.4-35.0) % [place] % (Auto) (0.0-7.3) % Eos % (Auto) (0.0-4.3) % Baso % (Auto) (0.0-1.8) % Lymph # (1.2-5.4) K/mm3 [place] # (0.0-0.8) K/mm3 Eos # (0.0-0.4) K/mm3 Baso # (0.0-0.1) K/mm3 Seg Neutrophils % (40.0-70.0) % Seg Neutrophils # (1.8-7.7) K/mm3 ESR (0-20) mm/Hr Sodium (137-145) mmol/L Potassium (3.6-5.0) mmol/L Chloride (98-107) mmol/L Carbon Dioxide (22-30) mmol/L Anion Gap mmol/L BUN (7-17) mg/dL Creatinine (0.7-1.2) mg/dL Estimated GFR ml/min BUN/Creatinine Ratio % Glucose (65-100) mg/dL Lactic Acid (0.7-2.0) mmol/L Calcium (8.4-10.2) mg/dL Magnesium (1.7-2.3) mg/dL Total Creatine Kinase (30-135) units/L CK-MB (CK-2) (0.0-4.0) ng/mL CK-MB (CK-2) Rel Index (0-4) C-Reactive Protein (0.00-1.30) mg/dL NT-Pro-B Natriuret Pep (0-450) pg/mL HCG, Qual Negative (Negative) - EKG Data -: EKG Interpreted by Me (nsr 64, umesh, prolonged qt, u waves, t inver) - EKG Data When compared to previous EKG there are: changes noted - Medical Decision Making Plan to admit patient to hospital for treatment for significant hypokalemia. Paramedic Instructor has been consulted - Differential Diagnosis electrolyte abnormality, acidosis, dehydration, infection Critical Care Time: No Critical care attestation.: If time is entered above; I have spent that time in minutes in the direct care of this critically ill patient, excluding procedure time. ED Disposition Clinical Impression: Systemic lupus erythematosus, Hypokalemia, RTA (renal tubular acidosis), Muscle cramps, Vomiting Disposition: -09 OP ADMIT IP TO THIS HOSP Is pt being admited?: Yes Condition: Stable Time of Disposition: 06:20 (Dr Solo/hosp)
[2017-04-25] MEDS ORDERED: NACL 0.9% 1000 ML 1,000 ML IV ONE ×2 (06:21→07:44)
[2017-04-25] MEDS: KCL 10MEQ/100ML 10 MEQ/100 ML BAG IV SCH ×5 (06:30→23:00)
[2017-04-25] MEDS ORDERED: ZOFRAN IV ONE (06:33)
[2017-04-25] MEDS ORDERED: MORPHINE IV PRN (07:42)
[2017-04-25] MEDS ORDERED: DULCOLAX PR PRN (07:42)
[2017-04-25] MEDS ORDERED: ZOFRAN IV PRN (07:45)
--- NOTE | 2017-04-25 07:49 | History and Physical Report ---
<CARLOS TOBIAS - Last Filed: 04/25/17 14:19> History of Present Illness Date of examination: 04/25/17 Date of admission: 04/25/2017 Chief complaint: leg and arm cramps History of present illness: Patient is a 46-year-old female with a past medical history rheumatoid arthritis, lupus, renal tubular acidosis, previous thyroidectomy, and recurrent hypokalemia who presents to the hospital with complaints of abdominal ache, nausea, vomiting, and leg and arm cramps. Patient has had nausea and vomiting with poor by mouth tolerance for the past two days. She now is having leg cramps similar to previous episodes of hypokalemia. Patient takes potassium chloride 40 mEq 3 times a day. Patient stated that she only sees nephrology when she is admitted to the hospital because she doesn't have health insurance.Patient was admitted here in Feb 2017 with a potassium of 2.6 and similar symptoms. Patient denies chest pain, palpitations shortness of breath, visual disturbance or lightheadedness. Past History Past Medical History: hypothyroidism, other (Renal tubular acidosis, rheumatoid arthrits) Past Surgical History: thyroidectomy Social history: Lives alone. denies: smoking, alcohol abuse Family history: CAD, hypertension Medications and Allergies Allergies Allergy/AdvReac Type Severity Reaction Status Date / Time No Known Allergies Allergy Verified 02/27/17 11:19 Home Medications Medication Instructions Recorded Confirmed Last Taken Type Levothyroxine 125 mcg PO QDAY #30 03/02/17 04/26/17 1 Day Ago Rx Active Meds: Active Medications Acetaminophen (Tylenol) 650 mg PO Q4H PRN PRN Reason: Pain MILD(1-3)/Fever >100.5/POWERS Bisacodyl (Dulcolax) 10 mg GA QDAY PRN PRN Reason: Constipation unrelieved by MOM Potassium Chloride (Kcl 10meq/100ml) 10 meq in 100 mls @ 100 mls/hr IV Q1H LION Stop: 04/25/17 09:59 Last Admin: 04/25/17 07:42 Dose: 100 mls/hr Sodium Chloride (Nacl 0.9% 1000 Ml) 1,000 mls @ 100 mls/hr IV ONCE ONE Stop: 04/25/17 16:20 Last Admin: 04/25/17 06:25 Dose: 100 mls/hr Sodium Chloride (Nacl 0.9% 1000 Ml) 1,000 mls @ 125 mls/hr IV ONCE ONE Stop: 04/25/17 15:43 Miscellaneous Medication (Levothyroxine) 125 mcg PO QDAY [facility] Morphine Sulfate (Morphine) 2 mg IV Q4H PRN PRN Reason: Pain, Moderate (4-6) Ondansetron HCl (Zofran) 4 mg IM Q4H PRN PRN Reason: Nausea And Vomiting Potassium Chloride (K-Dur) 40 meq PO TID [facility] Review of Systems Constitutional: fatigue, weakness, malaise, lethargy, no weight loss, no weight gain Ears, nose, mouth and throat: no ear pain, no ear discharge, no tinnitis, no decreased hearing, no nasal congestion Breasts: no change in shape, no swelling Cardiovascular: no chest pain, no orthopnea, no palpitations, no syncope, no lightheadedness, no shortness of breath Respiratory: no cough with sputum, no excessive sputum, no hemoptysis, no shortness of breath Gastrointestinal: abdominal pain, nausea, vomiting Genitourinary Female: no dyspareunia, no dysmenorrhea, no flank pain, no urinary frequency, no urgency, no stress incontinence Rectal: no pain, no incontinence, no bleeding Musculoskeletal: arm numbness/tingling, leg numbness/tingling, muscle weakness, muscle cramps, myalgias, no neck stiffness, no neck pain, no shooting arm pain, no low back pain Integumentary: no rash, no pruritis, no redness, no wounds, no jaundice Neurological: weakness, no head injury, no transient paralysis, no paralysis Psychiatric: no memory loss, no sleep disturbances, no insomnia, no hypersomnia , no change in libido, no disorientation, no hallucinations Endocrine: no heat intolerance, no polyphagia, no excessive thirst, no nocturia , no excessive sweating Hematologic/Lymphatic: no easy bruising, no easy bleeding Allergic/Immunologic: no urticaria, no allergic rhinitis Exam - Constitutional Vitals: Temp Pulse Resp BP Pulse Ox 98.6 F 57 L 17 101/71 100 04/25/17 04:26 04/25/17 06:31 04/25/17 06:31 04/25/17 06:31 04/25/17 06:31 General appearance: Present: no acute distress - EENT Eyes: Present: PERRL ENT: hearing intact - Neck Neck: Present: supple - Respiratory Respiratory effort: normal Respiratory: bilateral: CTA - Cardiovascular Heart rate: 55 Rhythm: regular Heart Sounds: Present: S1 & S2 - Extremities Extremities: no ischemia Peripheral Pulses: within normal limits - Abdominal General gastrointestinal: Present: soft, non-tender Female genitourinary: Present: deferred - Rectal Rectal Exam: deferred - Integumentary Integumentary: Present: clear, warm, dry - Musculoskeletal Musculoskeletal: strength equal bilaterally - Psychiatric Psychiatric: appropriate mood/affect - Neurologic Neurologic: CNII-XII intact - Allied Health Allied health notes reviewed: nursing Results - Labs CBC & Chem 7: 04/25/17 07:54 04/25/17 07:54 Labs: Laboratory Last Values WBC 8.3 K/mm3 (4.5-11.0) 04/25/17 04:40 RBC 4.11 M/mm3 (3.65-5.03) 04/25/17 04:40 Hgb 12.2 gm/dl (10.1-14.3) 04/25/17 04:40 Hct 36.5 % (30.3-42.9) 04/25/17 04:40 MCV 89 fl (79-97) 04/25/17 04:40 MCH 30 pg (28-32) 04/25/17 04:40 MCHC 33 % (30-34) 04/25/17 04:40 RDW 18.5 % (13.2-15.2) H 04/25/17 04:40 Plt Count 376 K/mm3 (140-440) 04/25/17 04:40 Lymph % (Auto) 24.9 % (13.4-35.0) 04/25/17 04:40 [place] % (Auto) 5.5 % (0.0-7.3) 04/25/17 04:40 Eos % (Auto) 0.6 % (0.0-4.3) 04/25/17 04:40 Baso % (Auto) 0.3 % (0.0-1.8) 04/25/17 04:40 Lymph # 2.1 K/mm3 (1.2-5.4) 04/25/17 04:40 [place] # 0.5 K/mm3 (0.0-0.8) 04/25/17 04:40 Eos # 0.1 K/mm3 (0.0-0.4) 04/25/17 04:40 Baso # 0.0 K/mm3 (0.0-0.1) 04/25/17 04:40 Seg Neutrophils % 68.7 % (40.0-70.0) 04/25/17 04:40 Seg Neutrophils # 5.7 K/mm3 (1.8-7.7) 04/25/17 04:40 ESR 74 mm/Hr (0-20) 04/25/17 04:40 Sodium 135 mmol/L (137-145) L 04/25/17 04:40 Potassium 1.7 mmol/L (3.6-5.0) L* 04/25/17 04:40 Chloride 106.7 mmol/L (98-107) 04/25/17 04:40 Carbon Dioxide 8 mmol/L (22-30) L* 04/25/17 04:40 Anion Gap 22 mmol/L 04/25/17 04:40 BUN 15 mg/dL (7-17) 04/25/17 04:40 Creatinine 1.0 mg/dL (0.7-1.2) 04/25/17 04:40 Estimated GFR > 60 ml/min 04/25/17 04:40 BUN/Creatinine Ratio 15.00 % 04/25/17 04:40 Glucose 122 mg/dL (65-100) H 04/25/17 04:40 Lactic Acid 1.30 mmol/L (0.7-2.0) 04/25/17 04:40 Calcium 9.7 mg/dL (8.4-10.2) 04/25/17 04:40 Magnesium 2.20 mg/dL (1.7-2.3) 04/25/17 04:40 Total Creatine Kinase 197 units/L (30-135) H 04/25/17 04:40 CK-MB (CK-2) 3.8 ng/mL (0.0-4.0) 04/25/17 04:40 CK-MB (CK-2) Rel Index 1.9 (0-4) 04/25/17 04:40 C-Reactive Protein 1.00 mg/dL (0.00-1.30) 04/25/17 04:40 NT-Pro-B Natriuret Pep 72.76 pg/mL (0-450) 04/25/17 04:40 HCG, Qual Negative (Negative) 04/25/17 04:40 Assessment and Plan Assessment and plan: ASSESSMENT/PLAN Severe hypokalemia Secondary to renal tubular acidosis Continue to replace with oral and IV potassium supplementation. IV fluid hydration We will recheck level in the morning Nephrology consulted Intractable nausea and vomiting IV fluids Started on antiemetic Supportive care Renal tubular acidosis. IV fluid Following by nephrology History of rheumatoid arthritis Stable at present time History of lupus Stable at present time Hypothyroidism We will resume Synthroid DVT prophylaxis. Lovenox Advance Directives: Yes VTE prophylaxis?: Chemical Contraindication Mechanical VTE Prophylaxis: Treatment Not Indicated Plan of care discussed with patient/family: Yes <ALFIE MUNOZ - Last Filed: 04/26/17 17:10> History of Present Illness Date of admission: 04/25/17 07:42 Medications and Allergies Active Meds: Active Medications Acetaminophen (Tylenol) 650 mg PO Q4H PRN PRN Reason: Pain MILD(1-3)/Fever >100.5/POWERS Bisacodyl (Dulcolax) 10 mg [place] QDAY PRN PRN Reason: Constipation unrelieved by MOM Enoxaparin Sodium (Lovenox) 40 mg SUB-Q QDAY@2200 [facility] Last Admin: 04/25/17 22:20 Dose: 40 mg Levothyroxine Sodium (Synthroid) 125 mcg PO DAILY@0600 [facility] Last Admin: 04/26/17 05:15 Dose: 125 mcg Morphine Sulfate (Morphine) 2 mg IV Q4H PRN PRN Reason: Pain, Moderate (4-6) Last Admin: 04/25/17 07:59 Dose: 2 mg Ondansetron HCl (Zofran) 4 mg IV Q4H PRN PRN Reason: Nausea And Vomiting Potassium Bicarbonate (Klor-Con) 25 meq PO TID [facility] Last Admin: 04/26/17 10:22 Dose: 25 meq Potassium Chloride (K-Dur) 40 meq PO TID [facility] Last Admin: 04/26/17 10:22 Dose: 40 meq Exam - Constitutional Vitals: Temp Pulse Resp BP Pulse Ox 98.0 F 69 18 103/55 96 04/26/17 16:36 04/26/17 16:36 04/26/17 16:36 04/26/17 16:36 04/26/17 16:36 Results - Labs CBC & Chem 7: 04/26/17 07:15 04/26/17 07:15 Labs: Laboratory Last Values WBC 6.2 K/mm3 (4.5-11.0) 04/26/17 07:15 RBC 3.66 M/mm3 (3.65-5.03) 04/26/17 07:15 Hgb 10.7 gm/dl (10.1-14.3) 04/26/17 07:15 Hct 32.9 % (30.3-42.9) 04/26/17 07:15 MCV 90 fl (79-97) 04/26/17 07:15 MCH 29 pg (28-32) 04/26/17 07:15 MCHC 33 % (30-34) 04/26/17 07:15 RDW 18.8 % (13.2-15.2) H 04/26/17 07:15 Plt Count 328 K/mm3 (140-440) 04/26/17 07:15 Lymph % (Auto) 24.7 % (13.4-35.0) 04/26/17 07:15 [place] % (Auto) 5.6 % (0.0-7.3) 04/26/17 07:15 Eos % (Auto) 1.3 % (0.0-4.3) 04/26/17 07:15 Baso % (Auto) 0.2 % (0.0-1.8) 04/26/17 07:15 Lymph # 1.5 K/mm3 (1.2-5.4) 04/26/17 07:15 [place] # 0.3 K/mm3 (0.0-0.8) 04/26/17 07:15 Eos # 0.1 K/mm3 (0.0-0.4) 04/26/17 07:15 Baso # 0.0 K/mm3 (0.0-0.1) 04/26/17 07:15 Seg Neutrophils % 68.2 % (40.0-70.0) 04/26/17 07:15 Seg Neutrophils # 4.2 K/mm3 (1.8-7.7) 04/26/17 07:15 ESR 74 mm/Hr (0-20) 04/25/17 04:40 Sodium 139 mmol/L (137-145) 04/26/17 07:15 Potassium 2.4 mmol/L (3.6-5.0) L* D 04/26/17 07:15 Chloride 113.1 mmol/L (98-107) H 04/26/17 07:15 Carbon Dioxide 11 mmol/L (22-30) L 04/26/17 07:15 Anion Gap 17 mmol/L 04/26/17 07:15 BUN 12 mg/dL (7-17) 04/26/17 07:15 Creatinine 1.0 mg/dL (0.7-1.2) 04/26/17 07:15 Estimated GFR > 60 ml/min 04/26/17 07:15 BUN/Creatinine Ratio 12.00 % 04/26/17 07:15 Glucose 83 mg/dL (65-100) 04/26/17 07:15 Lactic Acid 1.30 mmol/L (0.7-2.0) 04/25/17 04:40 Calcium 8.3 mg/dL (8.4-10.2) L 04/26/17 07:15 Magnesium 2.20 mg/dL (1.7-2.3) 04/25/17 04:40 Total Creatine Kinase 197 units/L (30-135) H 04/25/17 04:40 CK-MB (CK-2) 3.8 ng/mL (0.0-4.0) 04/25/17 04:40 CK-MB (CK-2) Rel Index 1.9 (0-4) 04/25/17 04:40 C-Reactive Protein 1.00 mg/dL (0.00-1.30) 04/25/17 04:40 NT-Pro-B Natriuret Pep 72.76 pg/mL (0-450) 04/25/17 04:40 HCG, Qual Negative (Negative) 04/25/17 04:40 Assessment and Plan Assessment and plan: I saw and evaluated the patient. I agree with the findings and the plan of care as documented in the Nurse Practitioner's~note, with the following corrections and additions. Patient seen and evaluated agree with the per documentation and management Closely monitor potassium if level is 3 and about can be discharged home on oral potassium chloride Nephrology evaluation and recommendations noted and appreciated
[2017-04-25] MEDS ORDERED: MORPHINE ONE (07:54)
[2017-04-25] MEDS: K-DUR PO SCH ×3 (08:00→22:15)
[2017-04-25 08:12] LABS: Basophils % (Auto) 0.3 % (0.0-1.8); Hematocrit 37.3 % (30.3-42.9); Hemoglobin 12.2 gm/dl (10.1-14.3); Mean Corpuscular HGB Conc 33 % (30-34); Mean Corpuscular Hemoglobin 29 pg (28-32); Mean Corpuscular Volume 90 fl (79-97); Platelet Count 341 K/mm3 (140-440); Red Blood Count 4.16 M/mm3 (3.65-5.03); Red Cell Distribution Width 18.6 % (13.2-15.2); White Blood Count 8.3 K/mm3 (4.5-11.0)
[2017-04-25 08:26] LABS: Anion Gap 15 mmol/L; Blood Urea Nitrogen 15 mg/dL (7-17); Calcium 9.3 mg/dL (8.4-10.2); Carbon Dioxide 12 mmol/L (22-30); Chloride 109.2 mmol/L (98-107); Glucose 114 mg/dL (65-100); Sodium 134 mmol/L (137-145)
--- NOTE | 2017-04-25 08:28 | Consultation ---
History of Present Illness - Reason for Consult Consult date: 04/25/17 hypokalemia, metabolic acidosis - History of Present Illness Patient is a 46-year-old AAF who is well known to our service with history significant for Rheumatoid Arthritis, Lupus, Renal tubular acidosis, Hypothyroid 2/2 thyroidectomy and recurrent Hypokalemia came to the hospital with one day h/o nausea, vomiting and generalized weakness. Patient developed the symptoms last night. She had 4 episodes of vomiting, which is non-bilious and non-bloody. Patient also reports generalized weakness and muscle cramps. Her symptoms are some what better. Patient is not followed by any Assemblies And Installations Inspector at this time. Patient denies diarrhea, fever, melena, rectal bleeding, rash, dizziness or syncope. Her potassium level remains at 1.7 during this admission. Past History Past Medical History: hypothyroidism, other (RTA, Hypokalemia, RA) Medications and Allergies Allergies Allergy/AdvReac Type Severity Reaction Status Date / Time No Known Allergies Allergy Verified 02/27/17 11:19 Home Medications Medication Instructions Recorded Confirmed Last Taken Type Acetaminophen/Codeine [Tylenol 1 tab PO Q6H PRN #10 tab 03/02/17 Unknown Rx /Codeine # 3 tab] Levothyroxine 125 mcg PO QDAY #30 03/02/17 Unknown Rx Potassium Chloride [K-Dur] 40 meq PO TID #180 tablet 03/02/17 Unknown Rx Active Meds: Active Medications Acetaminophen (Tylenol) 650 mg PO Q4H PRN PRN Reason: Pain MILD(1-3)/Fever >100.5/POWERS Bisacodyl (Dulcolax) 10 mg [place] QDAY PRN PRN Reason: Constipation unrelieved by MOM Potassium Chloride (Kcl 10meq/100ml) 10 meq in 100 mls @ 100 mls/hr IV Q1H LION Stop: 04/25/17 09:59 Last Admin: 04/25/17 07:42 Dose: 100 mls/hr Sodium Chloride (Nacl 0.9% 1000 Ml) 1,000 mls @ 100 mls/hr IV ONCE ONE Stop: 04/25/17 16:20 Last Admin: 04/25/17 06:25 Dose: 100 mls/hr Sodium Chloride (Nacl 0.9% 1000 Ml) 1,000 mls @ 125 mls/hr IV ONCE ONE Stop: 04/25/17 15:43 Miscellaneous Medication (Levothyroxine) 125 mcg PO QDAY [facility] Morphine Sulfate (Morphine) 2 mg IV Q4H PRN PRN Reason: Pain, Moderate (4-6) Last Admin: 04/25/17 07:59 Dose: 2 mg Ondansetron HCl (Zofran) 4 mg IM Q4H PRN PRN Reason: Nausea And Vomiting Potassium Chloride (K-Dur) 40 meq PO TID [facility] Last Admin: 04/25/17 08:00 Dose: 40 meq Review of Systems Constitutional: weakness, no weight loss, no weight gain, no fever, no chills, no anorexia Ears, nose, mouth and throat: sinus pain, epistaxis Breasts: deferred Cardiovascular: no chest pain, no edema, no syncope, no lightheadedness, no shortness of breath, no high blood pressure Respiratory: no cough, no hemoptysis, no shortness of breath Gastrointestinal: nausea, vomiting, no abdominal pain, no diarrhea, no hematemesis, no melena Genitourinary Female: no dysuria, no hematuria Rectal: no bleeding Musculoskeletal: no redness of joints Integumentary: no rash, no jaundice Neurological: weakness, no seizures, no syncope, no vertigo, no headaches, no confusion Psychiatric: no hallucinations Hematologic/Lymphatic: no easy bleeding Exam - Vital Signs Vital signs: Vital Signs Temp Pulse Resp BP Pulse Ox 98.6 F 92 H 20 116/78 99 04/25/17 04:26 04/25/17 04:26 04/25/17 04:26 04/25/17 04:26 04/25/17 04:26 - General Appearance General appearance: well-developed, appears stated age, other (no distress) EENT: ATNC, PERRL, mucous membranes dry Neck: Present: neck supple, trachea midline Respiratory: Clear to Ascultation Heart: regular, S1S2, no murmurs Gastrointestinal: Present: normoactive bowel sounds. Absent: tenderness Integumentary: no rash Neurologic: no focal deficit, no asterixis, alert and oriented x3, CN 3-12 intact Musculoskeletal: Present: other (no edema) Psychiatric: mood/affect appropriate, cooperative Results - Lab Results 04/25/17 07:54 04/25/17 07:54 Most recent lab results Calcium 9.3 mg/dL (8.4-10.2) 04/25/17 07:54 Magnesium 2.20 mg/dL (1.7-2.3) 04/25/17 04:40 Assessment and Plan - Patient Problems (1) Hypokalemia Current Visit: Yes Status: Acute Plan to address problem: IV potassium repletion. Resume home dose of K supplement. Monitor potassium levels. (2) RTA (renal tubular acidosis) Current Visit: Yes Status: Chronic Plan to address problem: Started on Potassium citrate. (3) Vomiting Current Visit: Yes Status: Acute Qualifiers: Vomiting type: V Vomiting Intractability: V Nausea presence: N (4) Volume depletion Current Visit: No Status: Acute Plan to address problem: Continue IV fluids.
[2017-04-25 08:33] LABS: Potassium 1.7 mmol/L (3.6-5.0)
--- NOTE | 2017-04-25 08:49 | Admit Criteria Form ---
Admission Criteria Documentation: HYPONATREMIA; HYPERNATREMIA; HYPOKALEMIA; HYPERKALEMIA; HYPOCALCEMIA; HYPERCALCEMIA Clinical Indications for Inpatient Care (Place 'X' for any and all applicable criteria): Ongoing inpatient care may be indicated for ANY ONE of the following [G](1)(2)(3 )(5): [ ]I. Hyponatremia with ANY ONE of the following: [ ]a) Sodium less than 130 mEq/L (mmol/L) (new) (6)(22) [ ]b) Sodium less than 135 mEq/L (mmol/L) with ANY ONE of the following: [ ]i) Severe medical etiology requiring inpatient management (eg, heart failure, hypovolemia) [ ]ii) Altered mental status [ ]iii) Seizures [ ]II. Hypernatremia with ANY ONE of the following: [ ]a) Sodium greater than 155 mEq/L (mmol/L) [ ]b) Sodium greater than 150 mEq/L (mmol/L) with ANY ONE of the following: [ ] i) Altered mental status [ ]ii) Seizures [ ]iii) Severe medical etiology (eg, hypovolemia, diabetes insipidus) [ ]iv) Severe weakness [ ]v) Severe medical etiology (eg, hemolysis, infection, drug overdose) [X]III. Hypokalemia with ANY ONE of the following: [X]a) Potassium less than 2.5 mEq/L (mmol/L) despite outpatient and emergency treatment [ ]b) Potassium less than 3.0 mEq/L (mmol/L) with ANY ONE of the following: [ ]i) Weakness [ ]ii) Cardiac abnormality (eg, arrhythmia, conduction disturbance) [ ]iii) Cardiac ischemia [ ]iv) Ileus [ ]v) Ongoing medical cause requiring inpatient management. ( e.g., acute renal wasting, SIADH) [ ]vi) Other severe symptoms [ ] IV. Hyperkalemia with ANY ONE of the following: [ ]a) Potassium greater than 6.5 mEq/L (mmol/L) [ ]b) Potassium greater than 5 mEq/L (mmol/L) with ANY ONE of the following: [ ]i) Severe ECG findings [H] [ ]ii) Acute worsening of renal failure (creatinine greater than 2.5 mg/dL (221 micromoles/L) or significant elevation for age and size) [ ] V. Hypocalcemia with ANY ONE of the following: [ ]a) Calcium less than 7 mg/dL (1.75 mmol/L) despite outpatient and emergency treatment(19) [ ]b) Calcium less than 8 mg/dL (2 mmol/L) with significant symptoms or findings; examples include: [ ]i) Cardiac abnormality (eg, arrhythmia or conduction disturbance) [ ]ii) Altered mental status [ ]iii) Seizures [ ]iv) Breathing difficulty [ ]v) Muscle spasms [ ]. Hypercalcemia with ANY ONE of the following: [ ]a) Calcium greater than 14 mg/dL (3.5 mmol/L) [ ]b) Calcium greater than 12 mg/dL (3 mmol/L) with ANY ONE of the following: [ ]i) Significant dehydration or hypovolemia as indicated by ANY ONE of the following(2): [ ]1. Clinically significant dehydration as indicated by ANY ONE of the following: [ ]A. Acute loss of weight from baseline (5% of body weight in adults, 9% in pediatric patients) [ ]B. Hemodynamic instability [ ]C. Acute renal failure [ ]D. Serum sodium greater than 150 mEq/L (mmol/L) [ ]2) Dehydration that is persistent indicated by ALL of the following: [ ]A. Oral rehydration therapy not tolerated or insufficient to adequately correct dehydration [ ]B. Appropriate intravenous treatment (eg, fluids ) does not readily correct dehydration ie, after 12 to 24 hours of treatment) [ ]ii) Significant symptoms or findings; examples include: [ ]1) Altered mental status [ ]2) Cardiac abnormality (eg, arrhythmia, conduction disturbance) [ ]3) Cardiac abnormality (eg, arrhythmia, conduction disturbance) The original [employer]20[employer] content created by [employer] has been revised. The portions of the content which have been revised are identified through the use of italic text or in bold, and [email or web address] has neither reviewed nor approved the modified material. All other unmodified content is copyright [facility] [email or web address] Please see references footnoted in the original [facility] [employer] edition 2016 Admission Criteria Met: Yes
[2017-04-25] MEDS ORDERED: KCL 10MEQ/100ML 10 MEQ/100 ML BAG IV ONE (09:29)
[2017-04-25] MEDS ORDERED: LEVOTHYROXINE 125 MCG PO SCH (10:00)
[2017-04-25] MEDS: SYNTHROID PO SCH (12:00)
[2017-04-25] MEDS: KLOR-CON PO SCH ×3 (16:23→22:15)
[2017-04-25 22:11] LABS: BUN/Creatinine Ratio 15.55; Blood Urea Nitrogen 14 mg/dL (7-17); Calcium 8.7 mg/dL (8.4-10.2); Glucose 141 mg/dL (65-100); Sodium 139 mmol/L (137-145)
[2017-04-25 22:19] LABS: Anion Gap 19 mmol/L; Carbon Dioxide 9 mmol/L (22-30); Potassium 1.9 mmol/L (3.6-5.0)
[2017-04-25] MEDS: LOVENOX SUB-Q SCH (22:20)
[2017-04-26] MEDS: KCL 10MEQ/100ML 10 MEQ/100 ML BAG IV SCH ×6 (01:15→16:00)
[2017-04-26] MEDS: SYNTHROID PO SCH (05:15)
[2017-04-26 07:42] LABS: Basophils % (Auto) 0.2 % (0.0-1.8); Eosinophils % (Auto) 1.3 % (0.0-4.3); Hematocrit 32.9 % (30.3-42.9); Hemoglobin 10.7 gm/dl (10.1-14.3); Mean Corpuscular HGB Conc 33 % (30-34); Mean Corpuscular Hemoglobin 29 pg (28-32); Mean Corpuscular Volume 90 fl (79-97); Platelet Count 328 K/mm3 (140-440); Red Blood Count 3.66 M/mm3 (3.65-5.03); Red Cell Distribution Width 18.8 % (13.2-15.2); White Blood Count 6.2 K/mm3 (4.5-11.0)
[2017-04-26 08:03] LABS: Anion Gap 17 mmol/L; Blood Urea Nitrogen 12 mg/dL (7-17); Calcium 8.3 mg/dL (8.4-10.2); Carbon Dioxide 11 mmol/L (22-30); Chloride 113.1 mmol/L (98-107); Glucose 83 mg/dL (65-100); Sodium 139 mmol/L (137-145)
[2017-04-26 08:07] LABS: Potassium 2.4 mmol/L (3.6-5.0)
--- NOTE | 2017-04-26 08:44 | Progress Note ---
Assessment and Plan - Patient Problems (1) Hypokalemia Current Visit: Yes Status: Acute Plan to address problem: Potassium level is improving. Continue IV and PO potassium repletion. Monitor potassium levels. (2) RTA (renal tubular acidosis) Current Visit: Yes Status: Chronic Plan to address problem: Continue Potassium citrate. (3) Volume depletion Current Visit: No Status: Acute Plan to address problem: Continue IV fluids. (4) Vomiting Current Visit: Yes Status: Acute Qualifiers: Vomiting type: V Vomiting Intractability: V Nausea presence: N Plan to address problem: Improved. Subjective Date of service: 04/26/17 Interval history: Patient is feeling better today. Objective - Vital Signs Vital signs: Vital Signs - 12hr 04/25/17 04/26/17 04/26/17 22:00 00:12 05:13 Temperature 98.5 F 98.4 F Pulse Rate 65 65 Pulse Rate [ 72 Radial] Respiratory 18 18 20 Rate Blood Pressure 97/53 101/62 O2 Sat by Pulse 100 100 Oximetry 04/26/17 04/26/17 06:24 07:57 Temperature 97.6 F Pulse Rate 60 67 Pulse Rate [ Radial] Respiratory 16 Rate Blood Pressure 90/53 O2 Sat by Pulse 100 Oximetry - General Appearance General appearance: well-developed, appears stated age, other (no distress) EENT: ATNC, PERRL, mucous membranes moist, hearing intact, vision intact Neck: supple Respiratory: Present: Clear to Ascultation Cardiology: regular, S1S2, no murmurs Gastrointestinal: normoactive bowel sounds, no tenderness Integumentary: no rash Neurologic: no focal deficit, no asterixis, alert and oriented x3, CN 3-12 intact Musculoskeletal: other (no edema) Psychiatric: mood/affect appropriate, cooperative - Lab 04/26/17 07:15 04/26/17 07:15 Most recent lab results Calcium 8.3 mg/dL (8.4-10.2) L 04/26/17 07:15 Magnesium 2.20 mg/dL (1.7-2.3) 04/25/17 04:40
[2017-04-26] MEDS: K-DUR PO SCH ×3 (10:22→21:19)
[2017-04-26] MEDS: KLOR-CON PO SCH ×3 (10:22→21:16)
--- NOTE | 2017-04-26 17:04 | Progress Note ---
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 Continue oral and IV potassium chloride replacement, nephrology following --Intractable nausea and vomiting; significantly improved Supportive care -Renal tubular acidosis; management per nephrology --Hypothyroidism; continue Synthroid --History of rheumatoid arthritis stable on medications --History of lupus; advised to see a psychologist [employer] personnel upon discharge --DVT prophylaxis; with Lovenox DC planning per case management For further evaluation and recommendations noted and appreciated Plan of care discussed with the patient, closely monitor potassium levels, if level is 3 and above can be discharged home tomorrow History Interval history: Patient seen and evaluated medical records reviewed Feels better, potassium levels improved to 2.4 No new complaints vital signs reviewed Hospitalist Physical - Constitutional Vitals: Temp Pulse Resp BP Pulse Ox 98.0 F 69 18 103/55 96 04/26/17 16:36 04/26/17 16:36 04/26/17 16:36 04/26/17 16:36 04/26/17 16:36 General appearance: Present: no acute distress, well-nourished - EENT Eyes: Present: PERRL, EOM intact - Neck Neck: Present: supple, normal ROM - Respiratory Respiratory effort: normal Respiratory: negative: diminished, rales, rhonchi, wheezing - Cardiovascular Rhythm: regular Heart Sounds: Present: S1 & S2 - Extremities Extremities: no ischemia, No edema, normal temperature - Abdominal General gastrointestinal: soft, non-tender, non-distended, normal bowel sounds - Integumentary Integumentary: Present: clear - Psychiatric Psychiatric: appropriate mood/affect, cooperative - Neurologic Neurologic: CNII-XII intact, moves all extremities Results - Labs CBC & Chem 7: 04/26/17 07:15 04/26/17 07:15 Labs: Laboratory Last Values WBC 6.2 K/mm3 (4.5-11.0) 04/26/17 07:15 RBC 3.66 M/mm3 (3.65-5.03) 04/26/17 07:15 Hgb 10.7 gm/dl (10.1-14.3) 04/26/17 07:15 Hct 32.9 % (30.3-42.9) 04/26/17 07:15 MCV 90 fl (79-97) 04/26/17 07:15 MCH 29 pg (28-32) 04/26/17 07:15 MCHC 33 % (30-34) 04/26/17 07:15 RDW 18.8 % (13.2-15.2) H 04/26/17 07:15 Plt Count 328 K/mm3 (140-440) 04/26/17 07:15 Lymph % (Auto) 24.7 % (13.4-35.0) 04/26/17 07:15 [place] % (Auto) 5.6 % (0.0-7.3) 04/26/17 07:15 Eos % (Auto) 1.3 % (0.0-4.3) 04/26/17 07:15 Baso % (Auto) 0.2 % (0.0-1.8) 04/26/17 07:15 Lymph # 1.5 K/mm3 (1.2-5.4) 04/26/17 07:15 [place] # 0.3 K/mm3 (0.0-0.8) 04/26/17 07:15 Eos # 0.1 K/mm3 (0.0-0.4) 04/26/17 07:15 Baso # 0.0 K/mm3 (0.0-0.1) 04/26/17 07:15 Seg Neutrophils % 68.2 % (40.0-70.0) 04/26/17 07:15 Seg Neutrophils # 4.2 K/mm3 (1.8-7.7) 04/26/17 07:15 ESR 74 mm/Hr (0-20) 04/25/17 04:40 Sodium 139 mmol/L (137-145) 04/26/17 07:15 Potassium 2.4 mmol/L (3.6-5.0) L* D 04/26/17 07:15 Chloride 113.1 mmol/L (98-107) H 04/26/17 07:15 Carbon Dioxide 11 mmol/L (22-30) L 04/26/17 07:15 Anion Gap 17 mmol/L 04/26/17 07:15 BUN 12 mg/dL (7-17) 04/26/17 07:15 Creatinine 1.0 mg/dL (0.7-1.2) 04/26/17 07:15 Estimated GFR > 60 ml/min 04/26/17 07:15 BUN/Creatinine Ratio 12.00 % 04/26/17 07:15 Glucose 83 mg/dL (65-100) 04/26/17 07:15 Lactic Acid 1.30 mmol/L (0.7-2.0) 04/25/17 04:40 Calcium 8.3 mg/dL (8.4-10.2) L 04/26/17 07:15 Magnesium 2.20 mg/dL (1.7-2.3) 04/25/17 04:40 Total Creatine Kinase 197 units/L (30-135) H 04/25/17 04:40 CK-MB (CK-2) 3.8 ng/mL (0.0-4.0) 04/25/17 04:40 CK-MB (CK-2) Rel Index 1.9 (0-4) 04/25/17 04:40 C-Reactive Protein 1.00 mg/dL (0.00-1.30) 04/25/17 04:40 NT-Pro-B Natriuret Pep 72.76 pg/mL (0-450) 04/25/17 04:40 HCG, Qual Negative (Negative) 04/25/17 04:40
[2017-04-26] MEDS: LOVENOX SUB-Q SCH (21:16)
[2017-04-26] MEDS: TYLENOL PO PRN (23:33)
[2017-04-27 06:23] LABS: Anion Gap 15 mmol/L; BUN/Creatinine Ratio 11.11; Blood Urea Nitrogen 10 mg/dL (7-17); Calcium 8.1 mg/dL (8.4-10.2); Carbon Dioxide 10 mmol/L (22-30); Chloride 116.2 mmol/L (98-107); Glucose 79 mg/dL (65-100); Potassium 3.2 mmol/L (3.6-5.0); Sodium 138 mmol/L (137-145)
[2017-04-27] MEDS: SYNTHROID PO SCH (06:33)
--- NOTE | 2017-04-27 08:57 | Discharge Summary ---
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 Continue oral and IV potassium chloride replacement, nephrology following --Intractable nausea and vomiting; significantly improved Supportive care -Renal tubular acidosis; management per nephrology --Hypothyroidism; continue Synthroid --History of rheumatoid arthritis stable on medications --History of lupus; advised to see a housekeeper hospital upon discharge --DVT prophylaxis; with Lovenox DC planning per case management Disposition: DC-01 TO HOME OR SELFCARE Time spent for discharge: 32 min Core Measure Documentation - Palliative Care Palliative Care/ Comfort Measures: Not Applicable - Core Measures Any of the following diagnoses?: none Exam - Constitutional Vitals: Temp Pulse Resp BP Pulse Ox 98.0 F 67 17 85/53 100 04/27/17 05:44 04/27/17 05:44 04/27/17 05:44 04/27/17 05:44 04/27/17 05:44 General appearance: Present: no acute distress, well-nourished - EENT Eyes: Present: PERRL, EOM intact - Neck Neck: Present: supple, normal ROM - Cardiovascular Rhythm: regular Heart Sounds: Present: S1 & S2 - Extremities Extremities: no ischemia, pulses intact, pulses symmetrical Peripheral Pulses: within normal limits - Abdominal General gastrointestinal: Present: soft, non-tender, non-distended, normal bowel sounds - Integumentary Integumentary: Present: clear, warm - Musculoskeletal Musculoskeletal: strength equal bilaterally - Psychiatric Psychiatric: appropriate mood/affect, cooperative - Neurologic Neurologic: CNII-XII intact, moves all extremities Plan Activity: no restrictions Diet: regular, other (foods rich in potassium) Follow up with: JUAN DIEGO DOYLE MD [Primary Care Provider] - 7 Days CONNIE ARCHER MD [Staff Physician] - 7 Days Prescriptions: Levothyroxine 125 mcg PO QDAY #30 Potassium Chloride [K-Dur] 40 meq PO TID #120 tab Sodium Bicarbonate 2 tab PO TID #120 tablet
[2017-04-27] MEDS: KLOR-CON PO SCH (09:06)
[2017-04-27] MEDS: K-DUR PO SCH (09:07)
[2017-04-27] MEDS: TYLENOL PO PRN (09:12)
[2017-04-27 10:26] VITALS: BP 104/53
== END 2017-04-27 11:50 | disposition home or self-care (01) | DRG 641 ==
LOC: ED 04:26 → 4A 07:42
PROVIDERS: ADMIT Internal Medicine; ATTEND Internal Medicine
DX: E87.6 Hypokalemia (principal); M06.9 Rheumatoid arthritis, unspecified; E86.9 Volume depletion, unspecified; E89.0 Postprocedural hypothyroidism; Z60.2 Problems related to living alone; Z82.49 Family history of ischemic heart disease and other diseases of the circulatory system
CPT/HCPCS: 36415; 80048; 82140; 82550; 82553; 83735; 83880; 84100; 84132; 84703; 85025; 85652; 86140; 93005; 93010; 96361; 96374; 96375; J1650; J2270; J2405; J3480; J7030

== ENCOUNTER 2018-10-09 19:30 | Emergency (ER) | payer MEDICAID ==
[2018-10-09 20:24] LABS: Hematocrit 29.1 % (30.3-42.9); Hemoglobin 9.5 gm/dl (10.1-14.3); Mean Corpuscular HGB Conc 33 % (30-34); Mean Corpuscular Volume 87 fl (79-97); Platelet Count 334 K/mm3 (140-440); Red Blood Count 3.35 M/mm3 (3.65-5.03)
[2018-10-09 20:38] LABS: Red Cell Distribution Width 21.3 % (13.2-15.2)
[2018-10-09 20:48] LABS: Alanine Aminotransferase 5 units/L (7-56); Albumin 3.7 g/dL (3.9-5); BUN/Creatinine Ratio 5; Blood Urea Nitrogen 5 mg/dL (7-17); Calcium 8.4 mg/dL (8.4-10.2); Hemolysis Index 14
[2018-10-09] MEDS ORDERED: NACL 0.9% 1000 ML 1,000 ML IV ONE (20:51)
[2018-10-09] MEDS ORDERED: K-DUR PO ONE (20:51)
[2018-10-09 21:01] LABS: Total Cells Counted 100
[2018-10-09 21:02] LABS: Basophils % (Manual) 0 % (0.0-1.8)
[2018-10-09 21:03] LABS: Target Cells 1+
[2018-10-09] MEDS ORDERED: ZOFRAN IV ONE (21:31)
--- NOTE | 2018-10-09 21:58 | Emergency Department Report ---
ED General Adult HPI - General Chief complaint: Chest Pain Stated complaint: LOW POTASSIUM/CHEST PAIN Time Seen by Provider: 10/09/18 21:18 Source: patient, old records reviewed (negative stress test July 2014) Mode of arrival: Ambulatory Limitations: No Limitations - History of Present Illness Initial comments: 48-year-old female with past medical history of renal tubular acidosis and recurrent hypokalemia, lupus, and surgical hypothyroidism presents to the hospital complaining of nausea, decreased by mouth tolerance, muscle cramps, and chest pain 2 days. Symptoms are similar to previous episodes of hypokalemia. Patient states that she is having into being cramping to her extremities. She also reports nausea with decreased by mouth intake without charanjit vomiting. She has sternal chest pain and is reproducible palpation and movement. No complaints of nausea, vomiting, abdominal pain, or fever. Patient has been compliant with her potassium 20 mEq twice a day. Since symptoms began 2 days ago she increased her dose to 20 mEq 3 times a day. 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 Severity scale (0 -10): 4 - Related Data Previous Rx's Medication Instructions Recorded Last Taken Type Levothyroxine 125 mcg PO QDAY #30 04/27/17 Unknown Rx Potassium Chloride [K-Dur] 40 meq PO TID #120 tab 04/27/17 Unknown Rx Sodium Bicarbonate 2 tab PO TID #120 tablet 04/27/17 Unknown Rx Ondansetron [Zofran Odt] 4 mg PO Q8HR PRN #20 tab.rapdis 10/09/18 Unknown Rx Potassium Chloride [K-Dur] 20 meq PO TID #60 tab 10/09/18 Unknown Rx Allergies Allergy/AdvReac Type Severity Reaction Status Date / Time No Known Allergies Allergy Verified 02/27/17 11:19 ED Review of Systems ROS: Stated complaint: LOW POTASSIUM/CHEST PAIN Other details as noted in HPI Comment: All other systems reviewed and negative ED Past Medical Hx - Past Medical History Previous Medical History?: Yes Hx Congestive Heart Failure: No Hx Diabetes: No Hx Renal Disease: Yes (Renal Tubular Acidosis) Hx Arthritis: Yes (RA) Hx Asthma: No Hx COPD: No Additional medical history: Lupus. Surgical hypothyroidism. 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 - Surgical History Past Surgical History?: Yes Additional Surgical History: thyroidectomy - Social History Smoking Status: Never Smoker Substance Use Type: None - Medications Home Medications: Home Medications Medication Instructions Recorded Confirmed Last Taken Type Levothyroxine 125 mcg PO QDAY #30 04/27/17 Unknown Rx Potassium Chloride [K-Dur] 40 meq PO TID #120 tab 04/27/17 Unknown Rx Sodium Bicarbonate 2 tab PO TID #120 tablet 04/27/17 Unknown Rx Ondansetron [Zofran Odt] 4 mg PO Q8HR PRN #20 tab.rapdis 10/09/18 Unknown Rx Potassium Chloride [K-Dur] 20 meq PO TID #60 tab 10/09/18 Unknown Rx ED Physical Exam - General Limitations: No Limitations - Other Other exam information: General: No limitations, patient is alert in no acute distress Head exam: Atraumatic, normocephalic Eyes exam: Normal appearance, pupils equal reactive to light, extraocular movements intact ENT: Moist mucous membrane Neck exam: Normal inspection, full range of motion, no meningismus nontender Respiratory exam: Clear to auscultation bilateral, no wheezes, rales, crackles Cardiovascular: Normal rate and rhythm, normal heart sounds. Reproducible sternal chest wall tenderness Abdomen: Soft, nondistended, and nontender, with normal bowel sounds, no rebound, or guarding Extremity: Full range of motion normal inspection no deformity Back: Normal Inspection, full range of motion, no tenderness Neurologic: Alert, oriented x3, cranial nerves intact, no motor or sensory deficit Psychiatric: normal affect, normal mood Skin: Warm, dry, intact ED Course Vital Signs 10/09/18 10/09/18 10/09/18 19:35 21:35 22:01 Temperature 98.6 F 97.9 F Pulse Rate 66 61 60 Respiratory 18 16 14 Rate Blood Pressure 105/63 104/77 Blood Pressure 106/67 [Left] O2 Sat by Pulse 100 97 Oximetry - Consultations Consultation #1: 10/09/18 22:15 Dr Earl consulted since he is livestock commission agent and he is very familiar with the patient. He states has previously instructed patient to take baking soda daily to help with acidosis. I questioned the patient's about compliance and apparently she is not taking the baking soda daily and has not had it at least in one week. Patient will be we educated about the importance of compliance with the baking soda. Dr. Earl recommends a mixture 60ml of water with lemon or crow and 1 tablespoon a baking soda daily. He also recommends for patient to receive 2 Amp of sodium bicarbonate IV in the ED to continue potassium chloride 20 mEq 3 times a day. Recommends follow-up in the office on Saturday the . ED Medical Decision Making - Lab Data Result diagrams: 10/09/18 20:10 10/09/18 20:10 Lab Results 10/09/18 10/09/18 10/09/18 Range/Units 20:10 20:10 20:10 WBC 4.2 L (4.5-11.0) K/mm3 RBC 3.35 L (3.65-5.03) M/mm3 Hgb 9.5 L (10.1-14.3) gm/dl Hct 29.1 L (30.3-42.9) % MCV 87 (79-97) fl MCH 28 (28-32) pg MCHC 33 (30-34) % RDW 21.3 H (13.2-15.2) % Plt Count 334 (140-440) K/mm3 Add Manual Diff Complete Total Counted 100 Seg Neuts % (Manual) 60.0 (40.0-70.0) % Band Neutrophils % 0 % Lymphocytes % (Manual) 28.0 (13.4-35.0) % Reactive Lymphs % (Man) 0 % Monocytes % (Manual) 11.0 H (0.0-7.3) % Eosinophils % (Manual) 1.0 (0.0-4.3) % Basophils % (Manual) 0 (0.0-1.8) % Metamyelocytes % 0 % Myelocytes % 0 % Promyelocytes % 0 % Blast Cells % 0 % Nucleated RBC % Not Reportable Seg Neutrophils # Man 2.5 (1.8-7.7) K/mm3 Band Neutrophils # 0.0 K/mm3 Lymphocytes # (Manual) 1.2 (1.2-5.4) K/mm3 Abs React Lymphs (Man) 0.0 K/mm3 Monocytes # (Manual) 0.5 (0.0-0.8) K/mm3 Eosinophils # (Manual) 0.0 (0.0-0.4) K/mm3 Basophils # (Manual) 0.0 (0.0-0.1) K/mm3 Metamyelocytes # 0.0 K/mm3 Myelocytes # 0.0 K/mm3 Promyelocytes # 0.0 K/mm3 Blast Cells # 0.0 K/mm3 WBC Morphology Not Reportable Hypersegmented Neuts Not Reportable Hyposegmented Neuts Not Reportable Hypogranular Neuts Not Reportable Smudge Cells Not Reportable Toxic Granulation Not Reportable Toxic Vacuolation Not Reportable Dohle Bodies Not Reportable Pelger-Huet Anomaly Not Reportable Nataly Rods Not Reportable Platelet Estimate Appears normal Clumped Platelets Not Reportable Plt Clumps, EDTA Not Reportable Large Platelets Not Reportable Giant Platelets Not Reportable Platelet Satelliting Not Reportable Plt Morphology Comment Not Reportable RBC Morphology Not Reportable Dimorphic RBCs Not Reportable Polychromasia Not Reportable Hypochromasia Not Reportable Poikilocytosis Not Reportable Anisocytosis Not Reportable Microcytosis Not Reportable Macrocytosis Not Reportable Spherocytes Not Reportable Pappenheimer Bodies Not Reportable Sickle Cells Not Reportable Target Cells 1+ Tear Drop Cells Not Reportable Ovalocytes Not Reportable Helmet Cells Not Reportable Patel-Bessie Bodies Not Reportable [place] Rings Not Reportable [place] Cells Not Reportable Bite Cells Not Reportable Crenated Cell Not Reportable Elliptocytes Not Reportable Acanthocytes (Spur) Not Reportable Rouleaux Not Reportable Hemoglobin C Crystals Not Reportable Schistocytes Not Reportable Malaria parasites Not Reportable Mike Bodies Not Reportable Hem Pathologist Commnt No Sodium 133 L (137-145) mmol/L Potassium 3.3 L (3.6-5.0) mmol/L Chloride 110.5 H (98-107) mmol/L Carbon Dioxide 12 L (22-30) mmol/L Anion Gap 14 mmol/L BUN 5 L (7-17) mg/dL Creatinine 1.1 (0.7-1.2) mg/dL Estimated GFR > 60 ml/min BUN/Creatinine Ratio 5 % Glucose 93 (65-100) mg/dL Calcium 8.4 (8.4-10.2) mg/dL Magnesium (1.7-2.3) mg/dL Total Bilirubin 0.50 (0.1-1.2) mg/dL AST 16 (5-40) units/L ALT 5 L (7-56) units/L Alkaline Phosphatase 46 (35-129) units/L Troponin T < 0.010 (0.00-0.029) ng/mL Total Protein 10.0 H (6.3-8.2) g/dL Albumin 3.7 L (3.9-5) g/dL Albumin/Globulin Ratio 0.6 % HCG, Qual (Negative) 10/09/18 10/09/18 Range/Units 20:10 20:10 WBC (4.5-11.0) K/mm3 RBC (3.65-5.03) M/mm3 Hgb (10.1-14.3) gm/dl Hct (30.3-42.9) % MCV (79-97) fl MCH (28-32) pg MCHC (30-34) % RDW (13.2-15.2) % Plt Count (140-440) K/mm3 Add Manual Diff Total Counted Seg Neuts % (Manual) (40.0-70.0) % Band Neutrophils % % Lymphocytes % (Manual) (13.4-35.0) % Reactive Lymphs % (Man) % Monocytes % (Manual) (0.0-7.3) % Eosinophils % (Manual) (0.0-4.3) % Basophils % (Manual) (0.0-1.8) % Metamyelocytes % % Myelocytes % % Promyelocytes % % Blast Cells % % Nucleated RBC % Seg Neutrophils # Man (1.8-7.7) K/mm3 Band Neutrophils # K/mm3 Lymphocytes # (Manual) (1.2-5.4) K/mm3 Abs React Lymphs (Man) K/mm3 Monocytes # (Manual) (0.0-0.8) K/mm3 Eosinophils # (Manual) (0.0-0.4) K/mm3 Basophils # (Manual) (0.0-0.1) K/mm3 Metamyelocytes # K/mm3 Myelocytes # K/mm3 Promyelocytes # K/mm3 Blast Cells # K/mm3 WBC Morphology Hypersegmented Neuts Hyposegmented Neuts Hypogranular Neuts Smudge Cells Toxic Granulation Toxic Vacuolation Dohle Bodies Pelger-Huet Anomaly Nataly Rods Platelet Estimate Clumped Platelets Plt Clumps, EDTA Large Platelets Giant Platelets Platelet Satelliting Plt Morphology Comment RBC Morphology Dimorphic RBCs Polychromasia Hypochromasia Poikilocytosis Anisocytosis Microcytosis Macrocytosis Spherocytes Pappenheimer Bodies Sickle Cells Target Cells Tear Drop Cells Ovalocytes Helmet Cells Patel-Bessie Bodies [place] Rings [place] Cells Bite Cells Crenated Cell Elliptocytes Acanthocytes (Spur) Rouleaux Hemoglobin C Crystals Schistocytes Malaria parasites Mike Bodies Hem Pathologist Commnt Sodium (137-145) mmol/L Potassium (3.6-5.0) mmol/L Chloride (98-107) mmol/L Carbon Dioxide (22-30) mmol/L Anion Gap mmol/L BUN (7-17) mg/dL Creatinine (0.7-1.2) mg/dL Estimated GFR ml/min BUN/Creatinine Ratio % Glucose (65-100) mg/dL Calcium (8.4-10.2) mg/dL Magnesium 2.20 (1.7-2.3) mg/dL Total Bilirubin (0.1-1.2) mg/dL AST (5-40) units/L ALT (7-56) units/L Alkaline Phosphatase (35-129) units/L Troponin T (0.00-0.029) ng/mL Total Protein (6.3-8.2) g/dL Albumin (3.9-5) g/dL Albumin/Globulin Ratio % HCG, Qual Negative (Negative) - EKG Data -: EKG Interpreted by Ak EKG shows normal: sinus rhythm, axis (qrs 96), QRS complexes (qrsd 104), ST-T waves (inf t inv, anterior septal q waves, flat lat t waves) Rate: normal (96) - EKG Data When compared to previous EKG there are: no significant change - Radiology Data Radiology results: report reviewed FINAL REPORT PROCEDURE: XR CHEST ROUTINE 2V TECHNIQUE: PA and lateral chest radiographs were obtained. CPT 93981 HISTORY: chest pain COMPARISON: No prior studies are available for comparison. FINDINGS: Heart: Normal. Mediastinum/Vessels: Normal. Lungs/Pleural space: Lungs are hyperinflated. There are no confluent infiltrates or mass lesions. Pleural spaces are clear.. Bony thorax: No acute osseous abnormality. Other: IMPRESSION: No acute pulmonary process.. - Medical Decision Making Chest pain is reproducible with unchanged EKG, negative cardiac enzymes, and normal chest x-ray. Symptomatic treatment will be recommended. Patient reeducated on importance of compliance with meds including daily sodium bicar bonate. Outpatient follow-up encouraged In ED patient received normal saline for mild hyponatremia, by mouth potassium for hypokalemia, and sodium bicarbonate for acidosis. Zofran provided for naus ea with improvement. - Differential Diagnosis electrolyte abnormality, OH, costochondritis, gastritis Critical Care Time: No Critical care attestation.: If time is entered above; I have spent that time in minutes in the direct care of this critically ill patient, excluding procedure time. ED Disposition Clinical Impression: Hypokalemic distal renal tubular acidosis, Nausea, Noncompliance, Hyponatremia, Chest wall pain Disposition: TO HOME OR SELFCARE Is pt being admited?: No Does the pt Need Aspirin: No Condition: Stable Instructions: Hypokalemia (ED), Costochondritis (ED) Additional Instructions: Take the medication as prescribed. Take Motrin or Tylenol as needed for pain. Follow up with the content assistant provided or the content assistant of your choice. Return if symptoms worsen as indicated by your discharge instructions. Take 60 ounces of water with water, lemon or crow, and 1 tablespoon of baking soda every daily to help with your acidosis. High potassium diet recommended by content assistant. Prescriptions: Ondansetron [Zofran Odt] 4 mg PO Q8HR PRN #20 tab.rapdis PRN Reason: Nausea And Vomiting Potassium Chloride [K-Dur] 20 meq PO TID #60 tab Referrals: AKIRA EARL MD [Staff Physician] - 10/13/18 (Neprhologist/kidney specialist) [facility] [Provider Group] - 3-5 Days Time of Disposition: 00:02
--- NOTE | 2018-10-09 22:17 | Event Note ---
Case was discussed with Dr. Sepulveda emergency room physician patient came in for evaluation she has chronic acidosis chronic hypokalemia but her potassium is much better than before Patient has not been taking her potassium replacement like she should at this point she is receiving potassium replacement in the ER as well as some sodium bicarbonate If patient is otherwise doing well my recommendations are to take 60 mEq of potassium once a day that can be given in divided doses i.e. 203 Patient will also need to take 60 ounces of water with water to lemon or lying and 1 tablespoon of baking soda every day to correct her acidosis She needs to stay on high potassium diet If she is symptomatic she will need to return back to ER Patient has known history of noncompliance Issues otherwise feeling well she can be seen in our office on Saturday Plan of care was discussed with Dr. Sepulveda We'll also suggest checking her magnesium level ,
--- NOTE | 2018-10-09 22:55 | XRay Report ---
FINAL REPORT PROCEDURE: XR CHEST ROUTINE 2V TECHNIQUE: PA and lateral chest radiographs were obtained. CPT 27085 HISTORY: chest pain COMPARISON: No prior studies are available for comparison. FINDINGS: Heart: Normal. Mediastinum/Vessels: Normal. Lungs/Pleural space: Lungs are hyperinflated. There are no confluent infiltrates or mass lesions. Ple ural spaces are clear.. Bony thorax: No acute osseous abnormality. Other: IMPRESSION: No acute pulmonary process..
[2018-10-10 00:28] VITALS: BP 97/60
== END 2018-10-10 00:20 | disposition home or self-care (01) ==
LOC: ED 19:30
DX: N25.89 Other disorders resulting from impaired renal tubular function (principal); E87.6 Hypokalemia; E87.1 Hypo-osmolality and hyponatremia; R07.89 Other chest pain
CPT/HCPCS: 36415; 71046; 80053; 83735; 84484; 84703; 85007; 85025; 93005; 93010; 96374; 96375; 99284; J2405; J7030

== ENCOUNTER 2018-10-30 12:52 | Outpatient (CLI) | payer MEDICAID ==
[2018-10-30 13:33] LABS: BUN/Creatinine Ratio 11; Blood Urea Nitrogen 9 mg/dL (7-17); Calcium 7.9 mg/dL (8.4-10.2); Hemolysis Index 14
== END 2018-10-30 12:53 | disposition home or self-care (01) ==
LOC: LAB 12:52
PROVIDERS: ATTEND Internal Medicine Nephrology
DX: N17.9 Acute kidney failure, unspecified (principal); E03.9 Hypothyroidism, unspecified; M19.90 Unspecified osteoarthritis, unspecified site; Z90.89 Acquired absence of other organs
CPT/HCPCS: 36415; 80048

== ENCOUNTER 2018-12-10 09:55 | Emergency (ER) | payer MEDICAID ==
--- NOTE | 2018-12-10 10:23 | Emergency Department Report ---
Vomiting/Diarrhea - HPI Chief Complaint: Abdominal Pain Stated Complaint: BODY PAIN Time Seen by Provider: 12/10/18 10:19 Duration: 3 Days Severity: mild Nausea/Vomiting Severity: Mild Diarrhea Severity: None Pain Location: Generalized Pain Severity: Mild Symptoms: Yes Able to Tolerate Fluids, No Watery Diarrhea, No Bloody diarrhea, No Fever, No Recent Unusual Foods, No Recent Untreated Water, No Recent use of Antibiotics, No Family w/ Similar Symptoms, No Contacts w/ Similar Symptoms, No Rash, No Hematuria, No Recent URI Symptoms Other History: Patient is a 48-year-old -[place] female who is well- known to us in the ER. She looks much older than stated age. She presents to the ER complaining of generalized body aches and vomiting. She states this is how she normally feels when her potassium gets low. She does have a chronic potassium sometimes running into the ones. It is noted in the EMR that this is due to her renal function which creatinine is normal but she does spill her potassium. She follows with Dr. Vizcaino. Dr. Vizcaino told her last week her potassium was normal. Patient has had some vomiting. No diarrhea. No fever. No chest pain no palpitations or shortness of breath. Past medical history. Anemia. hypothyroid. lupus. home med. iron. colace. synthroid. K. zofran prn ED Review of Systems ROS: Stated complaint: BODY PAIN Other details as noted in HPI Comment: All other systems reviewed and negative Constitutional: denies: chills Eyes: denies: eye pain ENT: denies: ear pain, throat pain, dental pain, hearing loss, epistaxis Respiratory: no symptoms reported. denies: see HPI, cough, orthopnea, shortness of breath, SOB with exertion, SOB at rest, stridor Cardiovascular: denies: chest pain, palpitations, dyspnea on exertion, orthopnea, edema, syncope, paroxysmal nocturnal dyspnea Endocrine: denies: flushing Gastrointestinal: as per HPI, nausea Genitourinary: denies: urgency Musculoskeletal: denies: back pain Skin: denies: lesions Neurological: as per HPI, weakness Psychiatric: denies: anxiety Hematological/Lymphatic: denies: easy bleeding ED Past Medical Hx - Past Medical History Previous Medical History?: Yes Hx Congestive Heart Failure: No Hx Diabetes: No Hx Renal Disease: Yes (Renal Tubular Acidosis) Hx Arthritis: Yes (RA) Hx Asthma: No Hx COPD: No Additional medical history: Lupus. 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 No distress. Alert and acting appropriately. HEENT: Yes Moist Mucous Membranes, No Pharyngeal Erythema, No Pharyngeal Exudates, No Rhinorrhea, No Conjuctival Injection, No Frontal Tenderness, No Maxillary Tenderness Neck: No Adenopathy, No Rigidity Lungs: Yes Clear Lung Sounds, Yes Good Air Exchange, No Wheezes, No Stridor, No Cough, No Nasal Flaring, No Retractions, No Use of Accessory Muscles Heart exam: Regular: Yes, Murmur: No, Tachycardia: No Abdomen: Tenderness: No, Peritoneal Signs: No, Distention: No, Hyperactive Bowel sounds: No Skin exam: Rash: No, Edema: No, Normal turgor: Yes Neurologic: Alert and oriented, no deficits. Musculoskeletal: Unremarkable. ED Course Vital Signs 12/10/18 10:03 Temperature 98.1 F Pulse Rate 98 H Respiratory 16 Rate Blood Pressure 117/73 O2 Sat by Pulse 99 Oximetry ED Medical Decision Making - Lab Data Result diagrams: 12/10/18 10:06 12/10/18 10:06 - EKG Data -: EKG Interpreted by Me EKG shows normal: sinus rhythm Rate: normal - EKG Data When compared to previous EKG there are: no significant change Interpretation: other (no u wave or T wave changes; sr wo ectopy) - Medical Decision Making Labs 12/10/18 12/10/18 12/10/18 10:06 10:06 10:31 WBC 5.5 RBC 3.62 L Hgb 10.5 Hct 31.5 MCV 87 MCH 29 MCHC 33 RDW 18.5 H Plt Count 399 Sodium 134 L Potassium 2.9 L* Chloride 105.3 Carbon Dioxide 14 L Anion Gap 18 BUN 13 Creatinine 1.1 Estimated GFR > 60 BUN/Creatinine Ratio 12 Glucose 96 Calcium 9.0 Total Bilirubin 0.40 AST 13 ALT < 5 L Alkaline Phosphatase 52 Total Protein 10.0 H Albumin 3.5 L Albumin/Globulin Ratio 0.5 Lipase 17 Urine Color Yellow Urine Turbidity Clear Urine pH 7.0 Ur Specific [place] 1.010 Urine Protein 100 mg/dl Urine Glucose (UA) Neg Urine Ketones Neg Urine Blood Neg Urine Nitrite Neg Urine Bilirubin Neg Urine Urobilinogen < 2.0 Ur Leukocyte Esterase Neg Urine WBC (Auto) 2.0 Urine RBC (Auto) 3.0 U Epithel Cells (Auto) 2.0 Urine Bacteria (Auto) 1+ Urine HCG, Qual Negative pt has chronic low K she saw Dr Vizcaino last week she is on K at home and has been taking it. k noted today 12 lead with no u wave or t wave changes PO Mg and K given chronic issue and that the pt is on low K will dc home with her usual K replacement and follow up in AM with PCP for recheck pt educated on eating foods high in K VSS no cp no sob no palpitations on dc dc home with dc poc Vital Signs 12/10/18 10:03 Temperature 98.1 F Pulse Rate 98 H Respiratory 16 Rate Blood Pressure 117/73 O2 Sat by Pulse 99 Oximetry - Differential Diagnosis anemia v hypok Critical care attestation.: If time is entered above; I have spent that time in minutes in the direct care of this critically ill patient, excluding procedure time. ED Disposition Clinical Impression: Hypokalemia, Chronic hypokalemia, Hypokalemic distal renal tubular acidosis, Myalgia, Nausea and vomiting Disposition: DC-01 TO HOME OR SELFCARE Is pt being admited?: No Does the pt Need Aspirin: No Condition: Stable Instructions: Hypokalemia (ED) Additional Instructions: REST HYDRATE WELL WITH WATER MEDS ORDERED FOLLOW UP PCP in am for K recheck MOTRIN OR TYLENOL FOR PAIN OR FEVER DIET TOLERATED ACTIVITY TOLERATED TAKE YOUR IRON INSTRUCTED TAKE WITH FOOD AND TAKE YOUR STOOL SOFTENER BE SURE TO TAKE YOU POTASSIUM INSTRUCTED EACH DAY YOU SHOULD BE EATING FOODS HIGH IN POTASSIUM LIKE BANANAS AND ORANGE JUICE. Prescriptions: Ondansetron [Zofran Odt] 4 mg PO Q8HR PRN #10 tab.rapdis PRN Reason: Vomiting Referrals: MIGEL VIZCAINO MD [Primary Care Provider] - 3-5 Days Time of Disposition: 11:58
[2018-12-10 10:30] LABS: Hematocrit 31.5 % (30.3-42.9); Hemoglobin 10.5 gm/dl (10.1-14.3); Mean Corpuscular HGB Conc 33 % (30-34); Mean Corpuscular Volume 87 fl (79-97); Platelet Count 399 K/mm3 (140-440); Red Blood Count 3.62 M/mm3 (3.65-5.03); Red Cell Distribution Width 18.5 % (13.2-15.2)
[2018-12-10] MEDS ORDERED: ZOFRAN ODT PO ONE (10:47)
[2018-12-10 10:51] LABS: Albumin 3.5 g/dL (3.9-5); BUN/Creatinine Ratio 12; Blood Urea Nitrogen 13 mg/dL (7-17); Hemolysis Index 3
[2018-12-10 10:52] LABS: Alanine Aminotransferase < 5 units/L (7-56)
[2018-12-10] MEDS ORDERED: K-DUR PO ONE ×2 (10:58→12:52)
[2018-12-10 11:08] LABS: Bacteria,Urine 1+ /HPF (Negative); Bilirubin,Urine NEG (Negative); Blood,Urine NEG (Negative); Color,Urine Yellow (Yellow); Urobilinogen,Urine < 2.0 mg/dL (<2.0)
[2018-12-10 11:21] LABS: HCG Qualitative,Urine Negative (Negative)
[2018-12-10] MEDS ORDERED: MAG-OX PO ONE (12:00)
[2018-12-10 13:33] VITALS: BP 105/67
== END 2018-12-10 13:33 | disposition home or self-care (01) ==
LOC: ED 09:55
DX: E87.6 Hypokalemia (principal); N25.89 Other disorders resulting from impaired renal tubular function; M79.18 Myalgia, other site; R11.2 Nausea with vomiting, unspecified; M19.90 Unspecified osteoarthritis, unspecified site
CPT/HCPCS: 36415; 80053; 81001; 81025; 83690; 85027; 93005; 93010; Q0162

== ENCOUNTER 2019-02-05 12:44 | Outpatient (CLI) | payer MEDICAID ==
[2019-02-05 13:49] LABS: Albumin 3.1 g/dL (3.9-5); BUN/Creatinine Ratio 13; Blood Urea Nitrogen 13 mg/dL (7-17); Calcium 8.5 mg/dL (8.4-10.2); Hemolysis Index 0; Uric Acid 3.9 mg/dL (3.5-7.6)
== END 2019-02-05 12:45 | disposition home or self-care (01) ==
LOC: LAB 12:44
PROVIDERS: ATTEND Internal Medicine Nephrology
DX: E87.6 Hypokalemia (principal); D64.9 Anemia, unspecified; E83.51 Hypocalcemia; E87.2 Acidosis; R94.4 Abnormal results of kidney function studies
CPT/HCPCS: 36415; 80048; 82040; 83735; 84100; 84550

== ENCOUNTER 2019-03-11 09:20 | Outpatient (CLI) | payer MEDICAID ==
--- NOTE | 2019-03-12 07:50 | Ultrasound Report ---
ULTRASOUND RENAL BILATERAL HISTORY: Hypokalemia. TECHNIQUE: transabdominal ultrasound with color Doppler interrogation. COMPARISON: CT abdomen pelvis without contrast 12/12/18. Ultrasound right upper quadrant 02/27/17. FINDINGS: The right kidney measures 12.5 x 5.3 x 6.1cm. Right renal cortex: 1.7cm. The left kidney measures 10.9 x 5.5 x 5.5cm. Left renal cortex: 1.5cm. The kidneys are normal size, contour and position. There is marked increased renal cortical echotexture bilaterally. No evidence for nephrolithiasis or hydronephrosis. A 1.5 x 2.2 cm simple cyst is noted in the mid right kidney. The views of the bladder and the region of the ureters appear normal. IMPRESSION: Echogenic kidneys consistent with renal parenchymal disease. Right renal cyst. No obstructive uropathy.
== END 2019-03-11 09:21 | disposition home or self-care (01) ==
LOC: US 09:20
PROVIDERS: ATTEND Internal Medicine Nephrology
DX: N28.1 Cyst of kidney, acquired (principal); N18.9 Chronic kidney disease, unspecified; E03.9 Hypothyroidism, unspecified
CPT/HCPCS: 76770

== ENCOUNTER 2019-03-18 12:39 | Outpatient (CLI) | payer MEDICAID ==
[2019-03-18 13:27] LABS: Albumin 3.2 g/dL (3.9-5); BUN/Creatinine Ratio 15; Blood Urea Nitrogen 16 mg/dL (7-17); Calcium 8.8 mg/dL (8.4-10.2); Hemolysis Index 5; Uric Acid 3.4 mg/dL (3.5-7.6)
== END 2019-03-18 12:40 | disposition home or self-care (01) ==
LOC: LAB 12:39
PROVIDERS: ATTEND Internal Medicine Nephrology
DX: E87.8 Other disorders of electrolyte and fluid balance, not elsewhere classified (principal); E87.2 Acidosis; R94.4 Abnormal results of kidney function studies; D64.9 Anemia, unspecified; E83.51 Hypocalcemia; E03.9 Hypothyroidism, unspecified
CPT/HCPCS: 36415; 80048; 82040; 83735; 84100; 84550

== ENCOUNTER 2019-07-24 17:18 | Emergency (ER) | payer MEDICAID ==
[2019-07-24 18:48] LABS: Alanine Aminotransferase 6 units/L (7-56); Albumin 3.4 g/dL (3.9-5); BUN/Creatinine Ratio 15; Blood Urea Nitrogen 12 mg/dL (7-17); Calcium 8.6 mg/dL (8.4-10.2); Hemolysis Index 16
[2019-07-24 19:06] LABS: Basophils % (Auto) 0.6 % (0.0-1.8); Eosinophils % (Auto) 1.4 % (0.0-4.3); Hemoglobin 10.3 gm/dl (10.1-14.3); Lymphocytes # (Auto) 1.3 K/mm3 (1.2-5.4); Lymphocytes % (Auto) 39.8 % (13.4-35.0); Mean Corpuscular HGB Conc 33 % (30-34); Mean Corpuscular Volume 89 fl (79-97); Monocytes # (Auto) 0.3 K/mm3 (0.0-0.8); Monocytes % (Auto) 7.9 % (0.0-7.3); Platelet Count 303 K/mm3 (140-440); Red Blood Count 3.48 M/mm3 (3.65-5.03); Red Cell Distribution Width 16.5 % (13.2-15.2)
[2019-07-24] MEDS ORDERED: SODIUM BICARB 8.4% 50 MEQ/50 ML SYRINGE IV ONE (20:42)
[2019-07-24] MEDS ORDERED: POTASSIUM CHLORIDE ER 20 MEQ TAB PO ONE (20:42)
[2019-07-24 20:50] LABS: Bacteria,Urine 1+ /HPF (Negative); WBC,Urine < 1.0 /HPF (0.0-6.0)
[2019-07-24 20:55] LABS: Bilirubin,Urine NEG (Negative); Blood,Urine NEG (Negative); Color,Urine Straw (Yellow); Protein,Urine <15 mg/dL mg/dL (Negative); Urobilinogen,Urine < 2.0 mg/dL (<2.0)
[2019-07-24] MEDS ORDERED: SODIUM CHLORIDE 0.9% 500 ML 500 ML ONE (21:29)
[2019-07-24] MEDS: POTASSIUM CHLORIDE 10 MEQ 10 MEQ/100 ML BAG IV SCH ×3 (21:30→23:24)
--- NOTE | 2019-07-24 21:55 | Emergency Department Report ---
ED General Adult HPI - General Chief complaint: Recheck/Abnormal Lab/Rx Stated complaint: LOW POTASSIUM Time Seen by Provider: 07/24/19 20:23 Source: patient Mode of arrival: Ambulatory Limitations: No Limitations - History of Present Illness Initial comments: 49 year old female the past medical history renotubular acidosis and chronic hypokalemia into the hospital complaining of low potassium. Patient had a scheduled outpatient follow-up with her PMD. Blood was drawn yesterday and she was told to go to the ER today for potassium of 2.5. Patient states she has some mild cramping but denies nausea, vomiting, or diarrhea. She's been compliant with her K-Dur 40 mg 3 times a day and sodium bicarbonate 1850 mg by mouth 3 times a day. Her PMD is Dr. Taylor. Chiropractic Care: Dr. Earl - Related Data Previous Rx's Medication Instructions Recorded Last Taken Type Levothyroxine [Synthroid] 100 mcg PO QAM #30 tablet 10/10/18 12/12/18 Rx Sodium Bicarbonate 1,850 mg PO TID #270 tablet 12/15/18 Unknown Rx Potassium Chloride [K-Dur] 40 meq PO TID #90 tablet 07/24/19 Unknown Rx Allergies Allergy/AdvReac Type Severity Reaction Status Date / Time No Known Allergies Allergy Verified 12/12/18 21:30 ED Review of Systems ROS: Stated complaint: LOW POTASSIUM Other details as noted in HPI Comment: All other systems reviewed and negative ED Past Medical Hx - Past Medical History Previous Medical History?: Yes Hx Hypertension: No Hx Congestive Heart Failure: No Hx Diabetes: No Hx Renal Disease: Yes (Renal Tubular Acidosis) Hx Arthritis: Yes (RA) Hx Asthma: No Hx COPD: No Hx HIV: No Additional medical history: Lupus. Surgical hypothyroidism. 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 - Surgical History Past Surgical History?: Yes Additional Surgical History: thyroidectomy - Social History Smoking Status: Never Smoker Substance Use Type: None - Medications Home Medications: Home Medications Medication Instructions Recorded Confirmed Last Taken Type Levothyroxine [Synthroid] 100 mcg PO QAM #30 tablet 10/10/18 12/12/18 12/12/18 Rx Sodium Bicarbonate 1,850 mg PO TID #270 tablet 12/15/18 Unknown Rx Potassium Chloride [K-Dur] 40 meq PO TID #90 tablet 07/24/19 Unknown Rx ED Physical Exam - General Limitations: No Limitations - Other Other exam information: General: No acute distress Head: Atraumatic Eyes: normal appearance ENT: Moist mucous membranes Neck: Normal appearance, no midline tenderness Chest: Clear to auscultation bilaterally CV: Regular rate and rhythm Abdomen: Soft, normal bowel sounds, nontender, nondistended, no rebound or guarding Back: Normal inspection Extremity: Normal inspection infection, full range of motion Neuro: Alert O x 3, no facial asymmetry, speech clear, no gross motor sensory deficit Psych: Appropriate behavior Skin: No rash ED Course Vital Signs 07/24/19 07/24/19 07/24/19 17:49 20:30 20:48 Temperature 98.4 F 98.6 F Pulse Rate 71 59 L 64 Respiratory 16 14 19 Rate Blood Pressure 96/59 Blood Pressure 92/54 96/59 [Left] O2 Sat by Pulse 99 95 95 Oximetry 07/24/19 07/24/19 07/24/19 21:30 22:00 22:30 Temperature Pulse Rate 65 67 62 Respiratory 16 17 16 Rate Blood Pressure 90/54 90/54 91/51 Blood Pressure [Left] O2 Sat by Pulse 100 100 100 Oximetry - Consultations Consultation #1: 07/24/19 20:43 Case discussed with on-call toxics program officer Dr. Rosales. Recommend initial ER supplementation and discharge potassium 40 mEq 4 times a day 48 hours then to decrease to 40 mg a day TID times a day. Also recommend to increase sodium bicarbonate to 4 times a day dosing. Recommend repeat blood work on the fifth or 6. ED Medical Decision Making - Lab Data Result diagrams: 07/24/19 18:19 07/24/19 18:19 Lab Results 07/24/19 07/24/19 07/24/19 Range/Units 18:19 18:19 18: WBC 3.2 L (4.5-11.0) K/mm3 RBC 3.48 L (3.65-5.03) M/mm3 Hgb 10.3 (10.1-14.3) gm/dl Hct 31.0 (30.3-42.9) % MCV 89 (79-97) fl MCH 30 (28-32) pg MCHC 33 (30-34) % RDW 16.5 H (13.2-15.2) % Plt Count 303 (140-440) K/mm3 Lymph % (Auto) 39.8 H (13.4-35.0) % [place] % (Auto) 7.9 H (0.0-7.3) % Eos % (Auto) 1.4 (0.0-4.3) % Baso % (Auto) 0.6 (0.0-1.8) % Lymph # 1.3 (1.2-5.4) K/mm3 [place] # 0.3 (0.0-0.8) K/mm3 Eos # 0.0 (0.0-0.4) K/mm3 Baso # 0.0 (0.0-0.1) K/mm3 Seg Neutrophils % 50.3 (40.0-70.0) % Seg Neutrophils # 1.6 L (1.8-7.7) K/mm3 Sodium 136 L (137-145) mmol/L Potassium 2.8 L* (3.6-5.0) mmol/L Chloride 109.1 H (98-107) mmol/L Carbon Dioxide 16 L (22-30) mmol/L Anion Gap 14 mmol/L BUN 12 (7-17) mg/dL Creatinine 0.8 (0.7-1.2) mg/dL Estimated GFR > 60 ml/min BUN/Creatinine Ratio 15 % Glucose 81 (65-100) mg/dL Calcium 8.6 (8.4-10.2) mg/dL Magnesium 2.10 (1.7-2.3) mg/dL Total Bilirubin 0.30 (0.1-1.2) mg/dL AST 14 (5-40) units/L ALT 6 L (7-56) units/L Alkaline Phosphatase 46 (35-129) units/L Total Protein 9.0 H (6.3-8.2) g/dL Albumin 3.4 L (3.9-5) g/dL Albumin/Globulin Ratio 0.6 % Urine Color (Yellow) Urine Turbidity (Clear) Urine pH (5.0-7.0) Ur Specific [place] (1.003-1.030) Urine Protein (Negative) mg/dL Urine Glucose (UA) (Negative) mg/dL Urine Ketones (Negative) mg/dL Urine Blood (Negative) Urine Nitrite (Negative) Ur Reducing Substances Urine Bilirubin (Negative) Urine Ictotest Urine Urobilinogen (<2.0) mg/dL Ur Leukocyte Esterase (Negative) Urine WBC (Auto) (0.0-6.0) /HPF Urine RBC (Auto) (0.0-6.0) /HPF U Epithel Cells (Auto) (0-13.0) /HPF Urine Bacteria (Auto) (Negative) /HPF 07/24/19 Range/Units 20:20 WBC (4.5-11.0) K/mm3 RBC (3.65-5.03) M/mm3 Hgb (10.1-14.3) gm/dl Hct (30.3-42.9) % MCV (79-97) fl MCH (28-32) pg MCHC (30-34) % RDW (13.2-15.2) % Plt Count (140-440) K/mm3 Lymph % (Auto) (13.4-35.0) % [place] % (Auto) (0.0-7.3) % Eos % (Auto) (0.0-4.3) % Baso % (Auto) (0.0-1.8) % Lymph # (1.2-5.4) K/mm3 [place] # (0.0-0.8) K/mm3 Eos # (0.0-0.4) K/mm3 Baso # (0.0-0.1) K/mm3 Seg Neutrophils % (40.0-70.0) % Seg Neutrophils # (1.8-7.7) K/mm3 Sodium (137-145) mmol/L Potassium (3.6-5.0) mmol/L Chloride (98-107) mmol/L Carbon Dioxide (22-30) mmol/L Anion Gap mmol/L BUN (7-17) mg/dL Creatinine (0.7-1.2) mg/dL Estimated GFR ml/min BUN/Creatinine Ratio % Glucose (65-100) mg/dL Calcium (8.4-10.2) mg/dL Magnesium (1.7-2.3) mg/dL Total Bilirubin (0.1-1.2) mg/dL AST (5-40) units/L ALT (7-56) units/L Alkaline Phosphatase (35-129) units/L Total Protein (6.3-8.2) g/dL Albumin (3.9-5) g/dL Albumin/Globulin Ratio % Urine Color Straw (Yellow) Urine Turbidity Clear (Clear) Urine pH 7.0 (5.0-7.0) Ur Specific [place] 1.009 (1.003-1.030) Urine Protein <15 mg/dl (Negative) mg/dL Urine Glucose (UA) Neg (Negative) mg/dL Urine Ketones Neg (Negative) mg/dL Urine Blood Neg (Negative) Urine Nitrite Neg (Negative) Ur Reducing Substances Not Reportable Urine Bilirubin Neg (Negative) Urine Ictotest Not Reportable Urine Urobilinogen < 2.0 (<2.0) mg/dL Ur Leukocyte Esterase Neg (Negative) Urine WBC (Auto) < 1.0 (0.0-6.0) /HPF Urine RBC (Auto) 4.0 (0.0-6.0) /HPF U Epithel Cells (Auto) < 1.0 (0-13.0) /HPF Urine Bacteria (Auto) 1+ (Negative) /HPF - Medical Decision Making Review IV and by mouth potassium in the ED. As well as IV sodium bicarbonate. Will be discharged with the recommended increase in dosing as per toxics program officer. - Differential Diagnosis hyperkalemia, acidosis, medication noncompliance Critical Care Time: No Critical care attestation.: If time is entered above; I have spent that time in minutes in the direct care of this critically ill patient, excluding procedure time. ED Disposition Clinical Impression: Hypokalemic distal renal tubular acidosis Disposition: DC-01 TO HOME OR SELFCARE Is pt being admited?: No Does the pt Need Aspirin: No Condition: Stable Instructions: Hypokalemia (ED) Additional Instructions: Take potassium 40 mg 4 times a day for 48 hours then decreased back to 40 mg 3 times a day. Increase your sodium bicarbonate doses 4 times a day. Follow-up with your doctor on the 07/28 or 07/29 for repeat blood work. Return if symptoms worsen as indicated by your discharge instructions. Prescriptions: Potassium Chloride [K-Dur] 40 meq PO TID #90 tablet Referrals: AKIRA EARL MD [Staff Physician] - 3-5 Days
[2019-07-24] MEDS ORDERED: SODIUM CHLORIDE 0.9% 500 ML 500 ML IV SCH (22:00)
[2019-07-25] MEDS: POTASSIUM CHLORIDE 10 MEQ 10 MEQ/100 ML BAG IV SCH (00:29)
[2019-07-25] MEDS ORDERED: SODIUM CHLORIDE 0.9% 1000 ML 1,000 ML IV ONE (00:37)
[2019-07-25] MEDS ORDERED: SODIUM CHLORIDE 0.9% 1000 ML 1,000 ML ONE (00:41)
[2019-07-25 01:55] VITALS: BP 97/60
== END 2019-07-25 02:20 | disposition home or self-care (01) ==
LOC: ED 17:18
DX: N25.89 Other disorders resulting from impaired renal tubular function (principal); M19.90 Unspecified osteoarthritis, unspecified site; E89.0 Postprocedural hypothyroidism; Z79.899 Other long term (current) drug therapy
CPT/HCPCS: 36415; 80053; 81001; 83735; 85025; 96365; 96366; 96375; 99283; J3480; J7030; J7040

== ENCOUNTER 2019-07-28 11:51 | Outpatient (CLI) | payer MEDICAID ==
[2019-07-28 12:50] LABS: Hematocrit 28.7 % (30.3-42.9); Hemoglobin 9.4 gm/dl (10.1-14.3); Mean Corpuscular HGB Conc 33 % (30-34); Mean Corpuscular Volume 91 fl (79-97); Platelet Count 279 K/mm3 (140-440); Red Blood Count 3.16 M/mm3 (3.65-5.03); Red Cell Distribution Width 16.5 % (13.2-15.2)
[2019-07-28 13:38] LABS: BUN/Creatinine Ratio 8; Blood Urea Nitrogen 7 mg/dL (7-17); Calcium 8.3 mg/dL (8.4-10.2); Hemolysis Index 113
== END 2019-07-28 11:52 | disposition home or self-care (01) ==
LOC: LAB 11:51
PROVIDERS: ATTEND Internal Medicine Nephrology
DX: E87.6 Hypokalemia (principal); E87.2 Acidosis; N28.1 Cyst of kidney, acquired; R94.4 Abnormal results of kidney function studies; D64.9 Anemia, unspecified; E03.9 Hypothyroidism, unspecified; Z98.890 Other specified postprocedural states; M06.9 Rheumatoid arthritis, unspecified
CPT/HCPCS: 36415; 80048; 82040; 84100; 85027

== ENCOUNTER 2019-09-29 16:13 | Outpatient (CLI) | payer MEDICAID ==
[2019-09-29 16:33] LABS: Basophils % (Auto) 0.5 % (0.0-1.8); Eosinophils % (Auto) 0.9 % (0.0-4.3); Hematocrit 28.9 % (30.3-42.9); Hemoglobin 9.9 gm/dl (10.1-14.3); Lymphocytes # (Auto) 1.3 K/mm3 (1.2-5.4); Lymphocytes % (Auto) 28.7 % (13.4-35.0); Mean Corpuscular HGB Conc 34 % (30-34); Mean Corpuscular Volume 89 fl (79-97); Monocytes # (Auto) 0.4 K/mm3 (0.0-0.8); Monocytes % (Auto) 7.8 % (0.0-7.3); Platelet Count 333 K/mm3 (140-440); Red Blood Count 3.25 M/mm3 (3.65-5.03); Red Cell Distribution Width 16.3 % (13.2-15.2)
[2019-09-29 16:44] LABS: Creatinine,Urine 53.6 mg/dL (0.1-20.0)
[2019-09-29 16:55] LABS: Alanine Aminotransferase 7 units/L (7-56); Albumin 3.3 g/dL (3.9-5); BUN/Creatinine Ratio 11; Blood Urea Nitrogen 10 mg/dL (7-17); Calcium 8.6 mg/dL (8.4-10.2); Hemolysis Index 25
== END 2019-09-29 16:14 | disposition home or self-care (01) ==
LOC: LAB 16:13
PROVIDERS: ATTEND Internal Medicine
DX: E87.6 Hypokalemia (principal)
CPT/HCPCS: 36415; 80053; 82570; 84156; 85025

== ENCOUNTER 2020-02-10 08:44 | Outpatient (CLI) | payer MEDICAID ==
--- NOTE | 2020-02-10 10:36 | Ultrasound Report ---
RENAL ULTRASOUND HISTORY: CYST OF KIDNEY N28.1,HYPOKALEMIA E87.6 COMPARISON: 11/11/2018 TECHNIQUE: Multiple real-time ultrasonographic grayscale images were obtained of the kidneys and urin jazmine bladder. FINDINGS: Right kidney: Markedly echogenic kidney with no hydronephrosis. Right upper pole cyst measures 2.5 x 1.8 x 1.9 cm compared to 2.2 x 1.5 x 2.0 cm on the last exam. Kidney measures 12.2 cm. Left kidney: Marked increased echogenicity of the kidney. No hydronephrosis. Kidney measures 11.8 cm. Urinary bladder: No significant abnormality. Additional findings: None. IMPRESSION: 1. Bilateral medical renal disease without significant change compared to the last exam. 2. Benign right upper pole renal cyst without significant change. 3. No hydronephrosis. Signer Name: Bernardino Riley MD Signed: 02/10/2020 10:32 AM Workstation Name: [id number]
== END 2020-02-10 08:45 | disposition home or self-care (01) ==
LOC: US 08:44
PROVIDERS: ATTEND Internal Medicine Nephrology
DX: N28.1 Cyst of kidney, acquired (principal); E87.6 Hypokalemia
CPT/HCPCS: 76770

== ENCOUNTER 2020-10-10 11:46 | Outpatient (CLI) | payer MEDICAID ==
[2020-10-10 13:22] LABS: Albumin 3.2 g/dL (3.9-5); BUN/Creatinine Ratio 13; Blood Urea Nitrogen 14 mg/dL (7-17); Calcium 8.4 mg/dL (8.4-10.2); Hemolysis Index 2
== END 2020-10-10 11:47 | disposition home or self-care (01) ==
LOC: LAB 11:46
PROVIDERS: ATTEND Internal Medicine Nephrology
DX: E87.6 Hypokalemia (principal)
CPT/HCPCS: 36415; 80048; 82040; 83735; 84100

== ENCOUNTER 2020-10-26 11:09 | Outpatient (CLI) | payer MEDICAID ==
[2020-10-26 11:43] LABS: Bilirubin,Urine NEG (Negative); Blood,Urine NEG (Negative); Color,Urine Yellow (Yellow); Protein,Urine <15 mg/dL mg/dL (Negative); Urobilinogen,Urine < 2.0 mg/dL (<2.0)
[2020-10-26 11:45] LABS: Creatinine,Urine 106.9 mg/dL (0.1-20.0)
[2020-10-26 11:48] LABS: Basophils % (Auto) 0.5 % (0.0-1.8); Eosinophils % (Auto) 0.2 % (0.0-4.3); Hematocrit 32.8 % (30.3-42.9); Lymphocytes # (Auto) 1.2 K/mm3 (1.2-5.4); Lymphocytes % (Auto) 18.3 % (13.4-35.0); Mean Corpuscular HGB Conc 34 % (30-34); Mean Corpuscular Volume 94 fl (79-97); Monocytes # (Auto) 0.5 K/mm3 (0.0-0.8); Monocytes % (Auto) 6.7 % (0.0-7.3); Platelet Count 398 K/mm3 (140-440); Red Blood Count 3.48 M/mm3 (3.65-5.03); Red Cell Distribution Width 14.1 % (13.2-15.2)
[2020-10-26 12:00] LABS: Alanine Aminotransferase 6 units/L (7-56); Albumin 3.7 g/dL (3.9-5); BUN/Creatinine Ratio 15; Blood Urea Nitrogen 17 mg/dL (7-17); Calcium 8.6 mg/dL (8.4-10.2); Hemolysis Index 2
[2020-10-29 11:15] LABS: Vitamin D, 25-OH, D2 45 ng/mL
[2020-10-30 05:31] LABS: Albumin 3.4 g/dL (3.8-4.8); Gamma Globulin 2.7 g/dL (0.8-1.7)
[2020-10-31 11:56] LABS: Abnormal Protein Band 1 SEE SCANNED RESULT; Abnormal Protein Band 2 SEE SCANNED RESULT; Albumin SEE SCANNED RESULT; Creatinine, Random Urine SEE SCANNED RESULT; Gamma Globulin SEE SCANNED RESULT; Interpretation SEE SCANNED RESULT; Protein/Creatinine Ratio SEE SCANNED RESULT
== END 2020-10-26 11:10 | disposition home or self-care (01) ==
LOC: LAB 11:09
PROVIDERS: ATTEND Internal Medicine
DX: M35.00 Sjogren syndrome, unspecified (principal)
CPT/HCPCS: 36415; 80053; 81001; 82306; 82570; 84156; 84165; 84166; 85025; 86160; 86225

== ENCOUNTER 2021-04-07 09:50 | Outpatient (CLI) | payer MEDICAID ==
[2021-04-07 10:31] LABS: Albumin 4.3 g/dL (3.9-5); BUN/Creatinine Ratio 12; Blood Urea Nitrogen 11 mg/dL (7-17); Calcium 9.6 mg/dL (8.4-10.2); Hemolysis Index 3
== END 2021-04-07 09:51 | disposition home or self-care (01) ==
LOC: LAB 09:50
PROVIDERS: ATTEND Internal Medicine Nephrology
DX: E87.6 Hypokalemia (principal); E78.2 Mixed hyperlipidemia; N26.1 Atrophy of kidney (terminal); D64.9 Anemia, unspecified; E83.51 Hypocalcemia
CPT/HCPCS: 36415; 80048; 82040; 84100; 84550

== ENCOUNTER 2021-11-02 15:04 | Outpatient (CLI) | payer MEDICAID ==
[2021-11-02 15:45] LABS: Albumin 3.6 g/dL (3.9-5); Calcium 8.8 mg/dL (8.4-10.2)
== END 2021-11-02 15:05 | disposition home or self-care (01) ==
LOC: LAB 15:04
PROVIDERS: ATTEND Internal Medicine Nephrology
DX: E87.6 Hypokalemia (principal)
CPT/HCPCS: 36415; 80048; 82040; 83735; 84100

== ENCOUNTER 2021-11-22 12:19 | Outpatient (CLI) | payer MEDICAID ==
[2021-11-22 13:49] LABS: Albumin 3.8 g/dL (3.9-5); BUN/Creatinine Ratio 16; Blood Urea Nitrogen 14 mg/dL (7-17); Calcium 9.4 mg/dL (8.4-10.2); Hemolysis Index 14
--- NOTE | 2021-11-22 14:09 | XRay Report ---
Bilateral knees INDICATION: Knee pain FINDINGS: There is tricompartmental degenerative change within the right knee with joint space narrow ing throughout. No large effusion is seen. Tricompartmental degenerative changes seen within the left knee most significant medial compartment and patellofemoral joint. No acute fracture in either knee. Signer Name: Norris Rehman MD Signed: 11/22/2021 2:05 PM Workstation Name: [id number]
--- NOTE | 2021-11-22 14:12 | XRay Report ---
RIGHT SHOULDER 3 VIEWS INDICATION: PAIN IN RIGHT SHOULDER. COMPARISON: None. IMPRESSION: No acute osseous or soft tissue abnormality. No significant DJD. Signer Name: Emerson Hernandez Jr, MD Signed: 11/22/2021 2:07 PM Workstation Name: [id number]
== END 2021-11-22 12:20 | disposition home or self-care (01) ==
LOC: LAB 12:19
PROVIDERS: ATTEND Internal Medicine Nephrology
DX: M17.0 Bilateral primary osteoarthritis of knee (principal); E87.6 Hypokalemia; E87.2 Acidosis; N28.1 Cyst of kidney, acquired; E83.30 Disorder of phosphorus metabolism, unspecified; R94.4 Abnormal results of kidney function studies; D64.9 Anemia, unspecified; E83.51 Hypocalcemia
CPT/HCPCS: 36415; 80048; 82040; 82306; 84100

== ENCOUNTER 2022-04-03 09:50 | Outpatient (CLI) | payer MEDICAID ==
[2022-04-03 11:07] LABS: Bilirubin,Urine NEG (Negative); Blood,Urine NEG (Negative); Color,Urine Straw (Yellow); Protein,Urine <15 mg/dL mg/dL (Negative); Urobilinogen,Urine < 2.0 mg/dL (<2.0)
[2022-04-03 11:10] LABS: WBC,Urine < 1.0 /HPF (0.0-6.0)
[2022-04-03 11:24] LABS: Albumin 3.8 g/dL (3.9-5); BUN/Creatinine Ratio 12; Blood Urea Nitrogen 13 mg/dL (7-17); Calcium 9.5 mg/dL (8.4-10.2); Hemolysis Index 6
[2022-04-03 13:17] LABS: Creatinine,Urine 37.8 mg/dL (0.1-20.0); Protein/Creatinine Ratio,Urine 0.42
== END 2022-04-03 09:51 | disposition home or self-care (01) ==
LOC: LAB 09:50
PROVIDERS: ATTEND Internal Medicine Nephrology
DX: E87.6 Hypokalemia (principal); E87.2 Acidosis; N28.1 Cyst of kidney, acquired; R94.4 Abnormal results of kidney function studies; D64.9 Anemia, unspecified; E55.9 Vitamin D deficiency, unspecified
CPT/HCPCS: 36415; 80048; 81001; 82040; 82570; 84100; 84156